=== PATIENT | female | born 1950 | race Caucasian/White ===

== ENCOUNTER → 2017-09-13 15:47 | Outpatient (CLI) | payer MEDICARE, OTHER, SELFPAY ==
--- NOTE | 2017-09-13 15:52 | RAD_ITS ---
STUDY: X-RAY - LEFT SHOULDER REASON FOR EXAM: Female, 67 years old. Painful left shoulder without injury TECHNIQUE: 4 view(s) of the shoulder. COMPARISON: None. FINDINGS: There is mild degenerative arthrosis of the glenohumeral articulation. There is degenerative arthrosis of the acromioclavicular joint without inferior osseous spur formation. Normal acromion. There are 2 ossific densities in the region around the humeral head, largest measuring 1.5 cm. Unsure if this represents joint loose bodies. Normal humeral head and visualized proximal humerus. The soft tissue structures are unremarkable. Normal visualized pulmonary apex. RAD/Shoulder min 2 Views IMPRESSION: Degenerative changes with possible joint loose bodies. Consider CT versus MRI to further evaluate Electronically Signed: Erik Clark DO at 16:07 EST Tel , Service support ,
== END ==
PROVIDERS: Family Provider Family Medicine; PCP Family Medicine; Visit Provider Family Medicine
DX: M25.511 Pain in right shoulder (principal)
CPT/HCPCS: 73030

== ENCOUNTER → 2017-09-21 17:39 | Outpatient (CLI) | payer MEDICARE, OTHER, SELFPAY ==
--- NOTE | 2017-09-21 17:42 | CT_ITS ---
STUDY: CT LEFT SHOULDER REASON FOR EXAM: Female, 67 years old. History of possible intra-articular loose bodies. RADIATION DOSAGE (If Supplied By Facility): CTDIvol = ( 30.82 ) mGy, DLP = ( 448.59 ) mGycm TECHNIQUE: The patient was scanned in a multi detector CT scanner. High resolution transaxial imaging was performed without the administration of intravenous contrast material. Sagittal and coronal images were reconstructed. Individualized dose optimization techniques were used for this CT. COMPARISON: Correlation is made with plain films of the left shoulder of 09/13/2017. FINDINGS: Normal glenohumeral articulation. There is a well-defined calcific density adjacent to the superior posterior aspect of the glenoid fossa which may be due to previous trauma or less likely nonfused epiphyses. Intra-articular loose body is less likely. Normal glenoid rim, neck and visualized scapula. Normal humeral head, neck and tuberosities. Normal coracoid process. Normal visualized lateral clavicle. There is mild osteoarthritis with articular joint space narrowing. There is a Type I morphology (flat undersurface), with a neutral orientation. There are calcifications lateral and superior to the humeral neck consistent with calcific tendinitis. CT/Extremity Upper without Contra IMPRESSION: Calcific tendinitis of the left shoulder. Small well-defined calcification adjacent to the superior glenoid rim as described above. Otherwise no evidence of intra-articular loose bodies. Mild degenerative changes of the acromioclavicular joint. Electronically Signed: Ho Lee MD at 2:05 EST Tel , Service support ,
== END ==
PROVIDERS: Family Provider Family Medicine; PCP Family Medicine; Visit Provider Family Medicine
DX: M25.512 Pain in left shoulder (principal); M24.019 Loose body in unspecified shoulder
CPT/HCPCS: 73200

== ENCOUNTER → 2018-04-13 13:14 | Outpatient (CLI) | payer MEDICARE, OTHER, SELFPAY ==
[2018-04-13 15:50] LABS: Absolute Lymphocyte Count 1.58 X10^3/ul (0.83-4.51); Absolute Neutrophil Count 2.8 X10^3/uL (2.0-7.7); Basophil# 0.03 X10^3/uL; Basophil% 0.6 % (0-1); Eosinophil# 0.22 X10^3/uL; Eosinophils% 4.3 % (0-5); Hematocrit 40.3 % (37-47); Hemoglobin 13.3 g/dl (12.0-15.0); Lymphocyte # 1.58 X10^3/ul (4.0); Lymphocyte % 30.7 % (19-41); Mean Corpuscular Hgb 30.6 pg (27.0-32.0); Mean Corpuscular Volume 92.6 fL (81-99); Mean Platelet Vol. 11.1 fl (6.2-12.0); Monocyte% 9.7 % (0-10); Neutrophil % 54.5 % (47-70); Platelet Count 242 K/mm3 (150-450); RBC Distribution Width CV 12.5 % (11.6-14.6); RBC Distribution Width SD 41.9 fl (35.1-43.9); Red Blood Count 4.35 M/mm3 (4.2-5.4); White Blood Count 5.1 K/mm3 (4.4-11.0)
[2018-04-13 16:00] LABS: POSITIVE COUNT NO; POSITIVE DIFFERENTIAL NO; POSITIVE MORPHOLOGY NO
[2018-04-13 16:22] LABS: Erythrocyte Sedimentation Rate 16 mm/hr (0-30)
[2018-04-13 16:23] LABS: CRP < 2.90 mg/L (0.0-3.0); Rheumatoid Factor < 10.0 IU/mL (<15); T4 Free Direct 0.96 ng/dL (0.76-1.46); Thyroid Stim Hormone (TSH) 0.73 uIU/mL (0.358-3.74)
[2018-04-13 17:21] LABS: Vitamin D,25 Hydroxy 51.6 ng/mL (29.95-100.01)
[2018-04-18 12:58] LABS: ANTINUCLEAR ANTIBODIES DIRECT Negative (Negative)
[2018-04-18 13:46] LABS: CCP IgG Antibodies 12 units (0-19)
== END ==
PROVIDERS: Family Provider Family Medicine; PCP Family Medicine; Visit Provider Family Medicine
DX: M06.4 Inflammatory polyarthropathy (principal); R53.83 Other fatigue
CPT/HCPCS: 36415; 82306; 84439; 84443; 85025; 85652; 86038; 86140; 86200; 86225; 86235; 86431

== ENCOUNTER → 2018-05-25 10:17 | Outpatient (CLI) | payer MEDICARE, OTHER, SELFPAY ==
--- NOTE | 2018-05-25 10:20 | BI_ITS ---
MAMMOGRAPHY - BILATERAL SCREENING 3-D FEDERICO SYNTHESIS REASON FOR EXAM: Female, 68 years old. Bilateral Screening 3-D tomosynthesis PERTINENT HISTORY: Asymptomatic. Left breast biopsy 2007. Family breast carcinoma, paternal aunt age 40-50 and paternal first cousin age 74. TECHNIQUE: 2-D mammograms and 3-D Federico synthesis of the breast (s) were performed. CAD was performed. COMPARISON: 05/25/2017, 05/21/2016 and 03/11/2015. FINDINGS: The breast composition is heterogeneously dense that can obscure small breast masses. Scattered benign appearing calcifications are seen. No dense spiculated dominant masses or suspicious microcalcification cluster are identified. No new architectural distortion, asymmetric density, adenopathy, skin thickening or nipple retraction identified. No change tiny biopsy clip left breast lower inner quadrant. BI/SCREENING MAMM (CAD), BILAT IMPRESSION: No mammographic sign of malignancy. Routine yearly mammograms recommended. ASSESSMENT CATEGORY: BIRADS Category 2: Benign. A letter regarding these results will be sent to the patient by the facility within 30 days. FOLLOW UP RECOMMENDATION: Yearly follow up mammogram recommended. (A) Negative mammographic results should not deter biopsy as any palpable lesion if present should be followed based on clinical grounds and biopsy performed if clinically persistent for 3 months or increasing size. Approximately 10% of breast cancers are not detected by mammography. A normal mammogram should not delay biopsy of a clinically suspicious abnormality. Dense breast tissue may obscure neoplasm. Electronically Signed: Delano Gregorio, at 19:58 EDT Tel , Service support ,
== END ==
PROVIDERS: Family Provider Family Medicine; PCP Family Medicine; Visit Provider Obstetrics & Gynecology
DX: Z12.31 Encounter for screening mammogram for malignant neoplasm of breast (principal)
CPT/HCPCS: 77063; 77067

== ENCOUNTER → 2018-06-09 07:46 | Outpatient (CLI) | payer MEDICARE, OTHER, SELFPAY ==
--- NOTE | 2018-06-10 12:15 | PFT ---
INTRODUCTION: The patient is a 68-year-old female that presents for pulmonary function testing secondary to a diagnosis of shortness of breath. Respiratory therapy reports good patient effort. Bronchodilators were used during testing. INTERPRETATION: Forced expiration spirometry demonstrates the presence of a reversible mild large airways obstructive ventilatory defect. The patient had a significant mid flow bronchodilator response. Spirograms are of good quality and do not plateau indicating slow emptying of the lungs. Body plethysmography was performed and reveals lung volumes to be within normal limits. Diffusing capacity by single breath CO is within normal limits at 87% of predicted. IMPRESSION: These pulmonary function studies demonstrate the presence of a reversible mild large airways obstructive ventilatory defect with a significant mid flow bronchodilator response. This pattern could be suggestive of underlying asthma, in the appropriate clinical context.
== END ==
PROVIDERS: Family Provider Family Medicine; PCP Family Medicine; Referring Provider Internal Medicine Critical Care Medicine; Visit Provider Internal Medicine Critical Care Medicine
DX: R06.02 Shortness of breath (principal)
CPT/HCPCS: 94060; 94726; 94729

== ENCOUNTER → 2018-06-16 08:30 | Outpatient (CLI) | payer MEDICARE, OTHER, SELFPAY ==
[2018-06-16 08:40] VITALS: PULSE 73; PULSE 77; PULSE 83; PULSE 84; PULSE 86; PULSE 87; PULSE 91; O2SAT 94; O2SAT 95; O2SAT 96; O2SAT 98; O2SAT 99
--- NOTE | 2018-06-16 15:02 | PCM.PSN.6M ---
PSN 6 Minute Walk Test - 6 Minute Walk Test 6 Minute Walk Test: 6 Minute Walk Test PSN:6-Minute Walk Test Start: 06/16/18 08:55 Freq: Status: Active Protocol: [id number].6MINW Document 06/16/18 08:40 HARRIET (Rec: 06/16/18 09:00 [facility] [place] [facility] [place] [id number]) 6 Minute Walk Test Date Performed 06/16/18 Time Performed 08:40 Height 5 ft 1 in Weight: 73.936 kg Weight in Pounds 163.[address]: Peter Eddy Assistive device used: None Pre-test Oxygen Delivery Method Room Air Pulse Ox (%) 99 Pulse Rate (60-100 beats/min) 73 Dyspnea Shaina Scale (0-10) 0 Exertion Shaina Scale (6-20) 6 Number of Rests Taken 0 1st minute Oxygen Delivery Method Room Air Pulse Ox (%) 98 Pulse Rate (60-100 beats/min) 86 Number of Rests Taken 0 2nd minute Oxygen Delivery Method Room Air Pulse Ox (%) 96 Pulse Rate (60-100 beats/min) 84 Number of Rests Taken 0 3rd minute Oxygen Delivery Method Room Air Pulse Ox (%) 98 Pulse Rate (60-100 beats/min) 83 Number of Rests Taken 0 4th minute Oxygen Delivery Method Room Air Pulse Ox (%) 96 Pulse Rate (60-100 beats/min) 87 Number of Rests Taken 0 5th minute Oxygen Delivery Method Room Air Pulse Ox (%) 95 Pulse Rate (60-100 beats/min) 87 Number of Rests Taken 0 6th minute Oxygen Delivery Method Room Air Pulse Ox (%) 94 Pulse Rate (60-100 beats/min) 91 Number of Rests Taken 0 Post-test Oxygen Delivery Method Room Air Pulse Ox (%) 99 Pulse Rate (60-100 beats/min) 77 Dyspnea Shaina Scale (0-10) 2 Exertion Shaina Scale (6-20) 12 Number of Rests Taken 0 Full Laps Walked 14 Partial Lap, Number of Tiles Walked 17 Total Distance Walked (ft) 843 - Interpretation Interpretation: The patient was able to ambulate 843 feet over the course of 6 minutes on room air with no assistive devices or breaks. No significant desaturation or tachycardia was noted. These findings are consistent with a musculoskeletal limitation exercise tolerance. - Recommendations Recommendations: No supplemental oxygen is indicated at this time.
== END ==
PROVIDERS: Family Provider Family Medicine; PCP Family Medicine; Referring Provider Internal Medicine Critical Care Medicine; Visit Provider Internal Medicine Critical Care Medicine
DX: R06.02 Shortness of breath (principal)
CPT/HCPCS: 94618

== ENCOUNTER → 2018-07-13 10:37 | Outpatient (CLI) | payer MEDICARE, OTHER, SELFPAY ==
[2018-07-13 09:50] VITALS: BMI 31.4
[2018-07-13 11:02] LABS: Absolute Lymphocyte Count 1.52 X10^3/ul (0.83-4.51); Absolute Neutrophil Count 3.4 X10^3/uL (2.0-7.7); Basophil# 0.03 X10^3/uL; Basophil% 0.5 % (0-1); Eosinophil# 0.24 X10^3/uL; Eosinophils% 4.2 % (0-5); Hematocrit 40.3 % (37-47); Hemoglobin 13.4 g/dl (12.0-15.0); Lymphocyte # 1.52 X10^3/ul (4.0); Lymphocyte % 26.6 % (19-41); Mean Corp Hgb Conc 33.3 g/gl (32-36); Mean Corpuscular Hgb 30.6 pg (27.0-32.0); Mean Platelet Vol. 10.2 fl (6.2-12.0); Monocyte# 0.56 X10^3/uL; Monocyte% 9.8 % (0-10); Neutrophil # 3.35 X10^3/uL (2.7-7.7); Neutrophil % 58.7 % (47-70); Platelet Count 250 K/mm3 (150-450); RBC Distribution Width CV 13.9 % (11.6-14.6); RBC Distribution Width SD 46.3 fl (35.1-43.9); Red Blood Count 4.38 M/mm3 (4.2-5.4); White Blood Count 5.7 K/mm3 (4.4-11.0)
[2018-07-13 11:05] LABS: POSITIVE COUNT NO; POSITIVE DIFFERENTIAL NO; POSITIVE MORPHOLOGY NO
[2018-07-15 16:08] LABS: Alternaria alternata <0.10 kU/L (Class 0); Bermuda Grass <0.10 kU/L (Class 0); Bluegrass, Kentucky <0.10 kU/L (Class 0); Cat Hair/Dander, Standard <0.10 kU/L (Class 0); D farinae Mite <0.10 kU/L (Class 0); D pteronyssinus <0.10 kU/L (Class 0); Dog Epithelia <0.10 kU/L (Class 0); Elm, American White <0.10 kU/L (Class 0); Oak, White <0.10 kU/L (Class 0); Ragweed, Short/Common <0.10 kU/L (Class 0)
[2018-07-16 09:23] LABS: Mouse Urine <0.10 kU/L (Class 0)
[2018-07-16 20:06] LABS: Aspirgillus flavus Negative (Neg:<1:1); Aspirgillus fumigatus Negative (Neg:<1:1); Aspirgillus niger Negative (Neg:<1:1)
[2018-07-17 08:33] LABS: Immunoglobulin E 32 IU/mL (0-100)
--- OUTSIDE RECORDS SUMMARY | 2018-09-07 19:09 | XMS RPT_ITS ---
:1950 Author Organization OHIP Support Name Relationship Address Phone [employer] Unavailable [address] [facility] + [place] [address] MCILVAINE, EARLENE Unavailable [address] + [place] [address] CHARI, SHOHBA Unavailable [address] + [place] [address] [employer] Unavailable 7 [facility] + [place] [address] MCILVAINE, EARLENE Unavailable Unavailable + CHARI, SHOBHA Unavailable Unavailable + [employer] Unavailable 7 [facility] + [place] [address] MCILVAINE, EARLENE Unavailable . + [place] [address] CHARI, SHOBHA Unavailable . + [place] [address] [employer] Unavailable 7 [facility] + [place] [address] MCILVAINE, EARLENE Unavailable Unavailable + [place] [address] CHARI, SHOBHA Unavailable Unavailable + [place] [address] [employer] Unavailable 7 [facility] + [place] [address] MCILVAINE, EARLENE Unavailable Unavailable + CHARI, SHOBHA Unavailable Unavailable + [employer] Unavailable 7 [facility] + [place] [address] MCILVAINE, EARLENE Unavailable Unavailable + CHARI, SHOBHA Unavailable Unavailable + [employer] Unavailable 7 [facility] + [place] [address] MCILVAINE, EARLENE Unavailable Unavailable + [place] [address] CHARI, SHOBHA Unavailable Unavailable + [place] [address] [employer] Unavailable 7 [facility] + [facility] [place] [address] CHARI, SHOBHA Unavailable . + [place] [address] [employer] Unavailable 7 [facility] + [place] [address] CHARI, SHOBHA Unavailable Unavailable + [employer] Unavailable 7 [facility] + [place] [address] CHARI, SHOBHA Unavailable . + [place] [address] [employer] Unavailable 7 [facility] + [facility] [place] [address] MCILVAINE, EARLENE Unavailable Unavailable + CHARI, SHOBHA Unavailable Unavailable + [employer] Unavailable Unavailable + [place] [address] CHARI, SHOBHA Unavailable . + [place] [address] MAIMVAINE, EARLENE Unavailable Unavailable + MAIMVAINE, EARLENE Unavailable Unavailable + MAIMVAINE, EARLENE Unavailable Unavailable + MAIMVAINE, EARLENE Unavailable Unavailable + MAIMVAINE, EARLENE Unavailable Unavailable + MCILVAINE, EARLENE Unavailable [address] + [place] [address] R Unavailable Unavailable Unavailable MCILVAINE, EARLENE Unavailable [address] + [place] [address] R Unavailable Unavailable Unavailable MCILVAINE, EARLENE Unavailable [address] + [place] [address] R Unavailable Unavailable Unavailable Care Team Providers Name Role Phone RICO PUGA (OPAL MINER) Attending Unavailable MARIANNA NEWELL Referring Unavailable RICO PUGA (OPAL MINER) Attending Unavailable MARIANNA NEWELL Referring Unavailable Yossi, Hugo Attending Unavailable Yossi, Hugo Primary Care Unavailable Yossi, Hugo Attending Unavailable Yossi, Hugo Referring Unavailable Yossi, Hugo Primary Care Unavailable Samantha Chinchilla Attending Unavailable Yossi, Hugo Referring Unavailable Yossi, Hugo Primary Care Unavailable Keke Kaiser Attending Unavailable Peter Eddy, D.O. Attending Unavailable Yossi, Hugo Referring Unavailable Yossi, Hugo Attending Unavailable Yossi, Hugo Primary Care Unavailable Aleksandra Lopez Attending Unavailable Yossi, Hugo Referring Unavailable Yossi, Hugo Primary Care Unavailable Aleksandra Lopez Attending Unavailable Yossi, Hugo Primary Care Unavailable Peter Eddy, D.O. Attending Unavailable Yossi, Hugo Referring Unavailable Peter Brown, D.O. Attending Unavailable Peter Brown, D.O. Referring Unavailable Yossi, Hugo Primary Care Unavailable Peter Eddy, D.O. Attending Unavailable Peter Eddy, D.O. Referring Unavailable Yossi, Hugo Primary Care Unavailable Peter Eddy, D.O. Attending Unavailable Peter Brown, D.O. Referring Unavailable Jose Angel Heart Attending Unavailable Peter Brown, D.O. Referring Unavailable Macy Eller Attending Unavailable Yossi, Hugo Referring Unavailable Macy Eller Attending Unavailable Rafita Macy Referring Unavailable Yossi, Hugo Primary Care Unavailable SUZANNE MCCLURE, DERIK Attending Unavailable SUZANNE MCCLURE, DERIK Attending Unavailable SUZANNE MCCLURE, DERIK Attending Unavailable SUZANNE MCCLURE, DERIK Attending Unavailable SUZANNE MCCLURE, DERIK Attending Unavailable PROBLEMS PROBLEMS DATE TYPE CONDITION / CODE ATTENDING STATUS SOURCE 07/13/2018 Unknown J45.909 - Unspecified Eller, Active Debbie asthma, uncomplicated [facility] / J45.909(ICD-10) Hospital Repository 07/13/2018 Unknown E66.9 - Obesity, Eller, Active Debbie unspecified / [facility] E66.9(ICD-10) Hospital Repository 07/13/2018 Unknown R05 - Cough / Eller, Active [place] R05(ICD-10) [facility] Repository 07/18/2018 Unknown R06.02 - Shortness of Peter Eddy, Active [facility] breath / 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 / Community M06.4(ICD-10) Hospital Repository 10/07/2017 Unknown M75.32 - Calcific ChicEfrem gore tendinitis of left Samantha [facility] shoulder / Hospital M75.32(ICD-10) Repository 09/21/2017 Unknown M25.512 - Pain in Hugo Sy Active Debbie left shoulder / Community M25.512(ICD-10) Hospital Repository 09/21/2017 Unknown M24.019 - Loose body Hugo Sy Active Debbie in unspecified Community shoulder / Hospital M24.019(ICD-10) Repository PROCEDURES PROCEDURES No Procedure Records FoundRESULTS RESULTS PROGRESS Observed: 07/28/2018 Status: COMPLETED Source: [place] 3:05 PM [facility] REPOSITORY HNO ID: [id number] Author: Rico Madden) Edd Service: (none) Author Type: Nurse Practitioner Type: Progress Notes Filed: 07/28/2018 5:13 PM Note Text: Reason for Today's [facility] Clinic Visit at [place]: ANASTASIYA 05/05/18 Impression: G47.33 CONOR (obstructive sleep apnea) AHI 40 (primary encounter diagnosis) I10 Essential hypertension, benign ? 68 yo female on PAP therapy and current CPAP greater then 5 years and broken beyond repair- humidity and pressures are broken. Need for new supplies, but needs to be set up with a new DME as [facility] is going out of business. Plan: - Will start Auto CPAP 5-10 cmH2O with a Nasal mask. - I will have a prescription sent to a DME (durable medical equipment) company - [employer] who will be calling you in the next 1- 2 weeks or so. Please call them directly or us if you do not hear from them in this time frame. - You should be eligible for new supplies approximately every 3-6 months, depending on your insurance coverage. - If your mask doesn't fit well, call the DME company before 30 days are up to get a new mask without an additional charge. - Insurance requires regular usage and periodic office follow ups for PAP therapy, to continue to cover supplies. ? CMS REQUIREMENTS: - Your insurance requires a [id number] follow up visit within a 31-90 day period after starting CPAP. - Your insurance requires compliance with CPAP, which is at least 4 hours per night for 70% of the time. This must be done over a 30 day period and must occur within the initial 31-90 day period after starting CPAP. - Your insurance also requires at least yearly follow ups to continue to pay for CPAP supplies. ? ? Follow up in 3 months ? Rico Puga, CHEMICAL ANALYST.OPAL MINER SLEEP APNEA Sleep apnea type : CONOR, Most Recent Apnea-Hypopnea Index (AHI): 40 Treatment : PAP therapy DME: [employer] PAP History: Uses AutoPAP for 6 hours per night, 7 nights per week. Current PAP settin-10 cm H2O. Difficulties with AutoPAP: None Objective PAP compliance data: 06/28/18 to 07/27/18 Compliance download: 97% >=4 hours Average use: 6 hours 31 minutes 90/95th percentile pressure: 9.8 Leaks 9.7, residual AHI 1.2 Mask type: nasal pillow interface Mask issues: skin irritation Uses chin strap: No Uses ramp function: Yes Uses humidity: Yes There is a perceived benefit by the patient ALLERGIES Allergen Reactions - Benedryl [Diphenhyd* GI Upset Patient felt hazy for several days after Colonoscopy for a while due to benedryl - Penicillins - Sulfa (Sulfonamide * PAST MEDICAL HISTORY Diagnosis Date - Asthma Dr. 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 - CONOR (obstructive sleep apnea) 12/27/2012 [facility] - Snoring PAST SURGICAL HISTORY Procedure Laterality Date - COLONOSCOP W/ OR W/O [facility] SPEC 08/07/09 - COLONOSCOP W/ OR W/O [facility] SPEC 11/05/14 Colonoscopy - PAST SURGICAL HISTORY OF back surgeries x 2 - PAST SURGICAL HISTORY OF Jun 2010 carpal tunnel release - REMOVAL OF TONSILS,<12 Y/O Tonsillectomy ACTIVE PROBLEM LIST Routine Gynecological Examination Ddd (Degenerative Disc Disease) Fibroid Uterus Asthma Penicillin Allergy Acne Essential Hypertension, Benign Mthfr Mutation (Hcc) Impaired Fasting Glucose CONOR (obstructive sleep apnea) AHI 40 Thoracic Radiculopathy Due to Intervertebral Disc Disorder Radiculopathy, Thoracic Region ? Diagnostic Conclusions: Obstructive Sleep Apnea Other conditions targeted directly or indirectly by intervention: HTN, asthma, DDD ? Self-reports: Doing well on PAP therapy with nightly use and perceived benefit. Presents after starting new autoPAP therapy. Actions Taken Reviewed reasons for treating sleep apnea in group format Individual review of patient's CONOR status and treatment regimen. Reviewed compliance report Provided education materials regarding CPAP ? Objective Data Compliance: Machine-downloaded PAP compliance data: see above Healthy appearing, good comprehension, normal gait, speech logical and goal directed Pleasant demeanor and attire appropriate to season ? Vital signs: BP 115/62 (BP Site: Left Arm, BP Position: Sitting, BP Cuff Size: Large Adult) Pulse 70 Resp 16 ? Plan: - Continue Auto CPAP at 5-15 cmH2O. - Remember to clean your mask and equipment regularly, as directed. - You should be eligible for new supplies approximately every 3-6 months, depending on your insurance coverage. Contact your Durable Medical Equipment (DME) company for new supplies as needed. Follow up in 1 year(s). This visit occurred of a group-based Shared Medical Activity, which included brief education and facilitated group interaction principally to enhance the understanding of and compliance with PAP therapy. This education emphasizes the benefits to daily functioning (Reduced Sleepiness, Improved Energy, Reduced Fatigue, and Reduced Irritability) that may accrue to many patients, but especially emphasizes the importance of adverse cardiovascular and metabolic outcomes (Heart attacks, strokes, hypertension, and worsening diabetes) that compliance to PAP therapy is intended to forestall or delay. This activity is directed at problems pertinent to CPAP mask therapy, and includes DME providers who were also available for immediate contact and intervention. Rico COHENOV Observed: 07/28/2018 Status: COMPLETED Source: [place] 3:00 PM [facility] REPOSITORY Office Visit (NEMOWS) MARLENYSHANTE ([id number]) 1950 Gila CASAREZ Date Time Provider Department 07/28/18 3:00 PM RICO PUGA) ANKUR During your visit today, we recorded the following information about you: Pulse Respiration Blood pressure 70/minute 16/minute 115/62 Rico Puga APRN.CNP 07/28/2018 5:13 PM Signed Reason for Today's [facility] Clinic Visit at [place]: ANASTASIYA 05/05/18 Impression: G47.33 CONOR (obstructive sleep apnea) AHI 40 (primary encounter diagnosis) I10 Essential hypertension, benign ? 68 yo female on PAP therapy and current CPAP greater then 5 years and broken beyond repair- humidity and pressures are broken. Need for new supplies, but needs to be set up with a new DME as [employer] is going out of business. Plan: - Will start Auto CPAP 5-10 cmH2O with a Nasal mask. - I will have a prescription sent to a DME ([employer] medical equipment) company - [employer] who will be calling you in the next 1-2 weeks or so. Please call them directly or us if you do not hear from them in this time frame. - You should be eligible for new supplies approximately every 3-6 months, depending on your insurance coverage. - If your mask doesn't fit well, call the DME company before 30 days are up to get a new mask without an additional charge. - Insurance requires regular usage and periodic office follow ups for PAP therapy, to continue to cover supplies. ? [facility] REQUIREMENTS: - Your insurance requires a [id number] follow up visit within a 31-90 day period after starting CPAP. - Your insurance requires compliance with CPAP, which is at least 4 hours per night for 70% of the time. This must be done over a 30 day period and must occur within the initial 31-90 day period after starting CPAP. - Your insurance also requires at least yearly follow ups to continue to pay for CPAP supplies. ? ? Follow up in 3 months ? Rico Puga APRN.CNP SLEEP APNEA Sleep apnea type : CONOR, Most Recent Apnea-Hypopnea Index (AHI): 40 Treatment : PAP therapy DME: [employer] PAP History: Uses AutoPAP for 6 hours per night, 7 nights per week. Current PAP settin-10 cm H2O. Difficulties with AutoPAP: None Objective PAP compliance data: 06/28/18 to 07/27/18 Compliance download: 97% >=4 hours Average use: 6 hours 31 minutes 90/95th percentile pressure: 9.8 Leaks 9.7, residual AHI 1.2 Mask type: nasal pillow interface Mask issues: skin irritation Uses chin strap: No Uses ramp function: Yes Uses humidity: Yes There is a perceived benefit by the patient ALLERGIES Allergen Reactions - Benedryl [Diphenhyd* GI Upset Patient felt hazy for several days after Colonoscopy for a while due to benedryl - Penicillins - Sulfa (Sulfonamide * PAST MEDICAL HISTORY Diagnosis Date - Asthma Dr. 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 - CONOR (obstructive sleep apnea) 12/27/2012 [facility] - [facility] PAST SURGICAL HISTORY Procedure Laterality Date - COLONOSCOP W/ OR W/O [facility] SPEC 08/07/09 - COLONOSCOP W/ OR W/O [facility] SPEC 11/05/14 Colonoscopy - PAST SURGICAL HISTORY OF back surgeries x 2 - PAST SURGICAL HISTORY OF Jun 2010 carpal tunnel release - REMOVAL OF TONSILS,<12 Y/O Tonsillectomy ACTIVE PROBLEM LIST Routine Gynecological Examination Ddd (Degenerative Disc Disease) Fibroid Uterus Asthma Penicillin Allergy Acne Essential Hypertension, Benign Mthfr Mutation (Hcc) Impaired Fasting Glucose CONOR (obstructive sleep apnea) AHI 40 Thoracic Radiculopathy Due to Intervertebral Disc Disorder Radiculopathy, Thoracic Region ? Diagnostic Conclusions: Obstructive Sleep Apnea Other conditions targeted directly or indirectly by intervention: HTN, asthma, DDD ? Self-reports: Doing well on PAP therapy with nightly use and perceived benefit. Presents after starting new autoPAP therapy. Actions Taken Reviewed reasons for treating sleep apnea in group format Individual review of patient's CONOR status and treatment regimen. Reviewed compliance report Provided education materials regarding CPAP ? Objective Data Compliance: Machine-downloaded PAP compliance data: see above Healthy appearing, good comprehension, normal gait, speech logical and goal directed Pleasant demeanor and attire appropriate to season ? Vital signs: BP 115/62 (BP Site: Left Arm, BP Position: Sitting, BP Cuff Size: Large Adult) Pulse 70 Resp 16 ? Plan: - Continue Auto CPAP at 5-15 cmH2O. - Remember to clean your mask and equipment regularly, as directed. - You should be eligible for new supplies approximately every 3-6 months, depending on your insurance coverage. Contact your Durable Medical Equipment (DME) company for new supplies as needed. Follow up in 1 year(s). This visit occurred of a group-based Shared Medical Activity, which included brief education and facilitated group interaction principally to enhance the understanding of and compliance with PAP therapy. This education emphasizes the benefits to daily functioning (Reduced Sleepiness, Improved Energy, Reduced Fatigue, and Reduced Irritability) that may accrue to many patients, but especially emphasizes the importance of adverse cardiovascular and metabolic outcomes (Heart attacks, strokes, hypertension, and worsening diabetes) that compliance to PAP therapy is intended to forestall or delay. This activity is directed at problems pertinent to CPAP mask therapy, and includes DME providers who were also available for immediate contact and intervention. Rico Puga CNP Referring Provider: MARIANNA NEWELL [[id number]] Allergies As of Date: 07/28/2018 Noted Allergy Reaction BENEDRYL (DIPHENHYDRAMINE) 11/07/2014 8 - GI Upset Comments: Patient felt hazy for several days after Colonoscopy for a while due to benedryl PENICILLINS 06/04/2009 SULFA (SULFONAMIDE ANTIBIOTICS) 06/04/2009 Date Reviewed: 07/28/2018 Reviewed by: Rico (Soumya) Edd - Fully Assessed Reason for Visit: Sleep Apnea Clinic [Other] Primary Visit Diagnosis:CONOR (obstructive sleep apnea) [G47.33] Prescriptions as of 07/28/2018 Sig: AZELASTINE-FLUTICASONE 137 MC* Use 1 Dows in each nostril t* BIOTIN 2,500 MCG CAPSULE Take by mouth. BIOTIN 5,000 MCG-SILICON DIOX* Take by mouth once daily. CALCIUM 500 ORAL Take 1 tablet by mouth. VITAMIN D-3 ORAL Take by mouth. COENZYME Q10 200 MG CAPSULE Take by mouth once daily. COMPOUNDED PRESCRIPTION Pain- BG CPAP CPAP 9 cmH2O, suitable mask, * CPAP Mask (per patient preference)* CPAP 1 Device by MISCELLANEOUS rou* CYANOCOBALAMIN (VIT B-12) 1,0* Take 1 tablet by mouth once d* RADHIKA ALLERGY ORAL Take 1 tablet by mouth as nee* FOLIC ACID 1 MG TABLET Take 2 tablets by mouth twice* LACTOBACILLUS ACIDOPHILUS CAP* Take 1-2 capsules by mouth on* MAGNESIUM 250 MG TABLET Take 250 mg by mouth once aristeo* OMEGA-3 FATTY ACIDS-FISH OIL * Take 1 capsule by mouth twice* OXYCODONE 5 MG CAPSULE Take 1 capsule by mouth every* PREGABALIN 75 MG CAPSULE Take 75 mg by mouth twice aristeo* RESVERATROL 100 MG CAPSULE Take by mouth. TIZANIDINE 4 MG TABLET Take 0.5-1 tablets by mouth e* TURMERIC (BULK) 95 % POWDER VALACYCLOVIR 500 MG TABLET Take 500 mg by mouth twice da* VITAMIN B COMPLEX TABLET Take 1 tablet by mouth once d* More... Problem List As Of Date 07/28/2018 Noted Resolved Routine Gynecological Examination [Z01.419] INVALID FOR* Class: Chronic More... DDD (degenerative disc disease) [PMA1616] INVALID FOR* More... Fibroid Uterus [D25.9] INVALID FOR* Asthma [J45.909] INVALID FOR* More... Penicillin Allergy [Z88.0] INVALID FOR* Acne [L70.9] INVALID FOR* More... Essential Hypertension, Benign [I10] INVALID FOR* MTHFR Mutation [E72.12] INVALID FOR* More... Impaired fasting glucose [R73.01] INVALID FOR* CONOR (obstructive sleep apnea) AHI 40 [G47.33] INVALID FOR* More... Obesity [E66.9] INVALID FOR*03/21/2014 Depression [F32.9] INVALID FOR*09/26/2013 Excessive sleepiness [G47.10] INVALID FOR*09/26/2013 Thoracic radiculopathy due to intervertebral di*INVALID FOR* Thoracic or lumbosacral neuritis or radiculitis*INVALID FOR*03/30/2017 Radiculopathy, thoracic region [M54.14] INVALID FOR* Disposition: Return in about 1 year (around 07/28/2019). Follow-up and Disposition History Recorded Encounter Status:Closed by RICO PUGA on 07/28/18 PULMONARY VISIT REPORT Observed: 07/28/2018 Status: F Source: [place] 7:37 AM [facility] REPOSITORY [facility] [place] [address] [place] [address] OFFICE VISIT Date of Service: 07/28/18 MR#: [id number] Acct: [id number] Name: SHANTE MILLARD Rep #: [id number] : 1950 Provider: Peter Eddy D.O. Age/Sex: 68/F Location: [email or web address] Status: Signed Assessment AND Plan 1. Mild intermittent asthma without complication J45.20 Plan The patient is rather asymptomatic at this time and is responding favorably to the use of an albuterol metered-dose inhaler. Given her infrequent use of albuterol and limited symptoms, there is no indication for an escalation in her inhaler regimen. She has been advised to continue the use of albuterol as needed and to contact this office if her reliance on his short acting beta agonist exceeds 3 times per week. 2. 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 Plan Detail Other Medications New: Follow Up 5 Months (DMB) HPI HPI Comments Details: The patient is a 68-year-old female who presents to the clinic today for a routine scheduled follow-up office visit. If you recall, the patient reports having previously been diagnosed with cough variant asthma and what sounds to be like exercise-induced bronchospasm. She was previously followed by Dr. Hernandez (bank vault attendant). She states that she was previously prescribed Symbicort and as needed albuterol multiple years ago when she was following with the aforementioned provider. The patient then slowly weaned herself off of all inhalers and has been without them for approximately 3 years. She is a lifelong non-smoker, but does have significant secondhand smoke exposure. She does not keep any pets in her home environment. 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 Pulmonary function testing was completed in May 2018 revealed evidence of a reversible mild large airways obstructive ventilatory defect with a significant mid flow bronchodilator response. A 6-minute walk test was completed in June 2018 and revealed no significant exertional oxygen desaturation. Today, the patient only reports the presence of a mild nonproductive cough, postnasal drip and occasional shortness of breath. She does have intermittent episodes of chest tightness and wheezing, which responds to the use of albuterol. However, she has not had to utilize her rescue inhaler with any form of regularity. She denies fevers, chills or night sweats. Her weight has remained stable. RAST, IgE and Aspergillus antibodies were all negative. 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 Required: No Accompanied by: Self Is patient in pain?: Yes Allergies Penicillins [PCN] Allergy (Verified 07/28/18 07:10) Rash Sulfa (Sulfonamide Antibiotics) Allergy (Verified 07/28/18 07:10) Hives Medications B-complex with vitamin C capsule 1 cap PO QDAY 10/07/17 [History Confirmed 07/28/18] Bifidobacterium infantis 1.5 billion cell capsule 4 mg PO QDAY 10/07/17 [History Confirmed 07/28/18] cholecalciferol (vitamin D3) 5,000 unit capsule 5,000 unit PO ONCE 10/07/17 [History Confirmed 07/28/18] mecobalamin (vitamin B12) 1,000 mcg disintegrating tablet,sublingual 1,000 mcg SUBLINGUAL QDAY 10/07/17 [History Confirmed 07/28/18] omega-3 fatty acids 1,000 mg capsule 1,000 mg PO QDAY 10/07/17 [History Confirmed 07/28/18] turmeric root extract 500 mg capsule 500 mg PO DAILY 04/26/18 [History Confirmed 07/28/18] biotin 5,000 mcg disintegrating tablet 5,000 mcg PO DAILY tab 05/25/18 [History Confirmed 07/28/18] coenzyme M67-hzymbgh E 100 mg-100 unit capsule 2 cap PO QDAY cap 05/25/18 [History Confirmed 07/28/18] folic acid 1 mg tablet 2 mg PO BID tab 05/25/18 [History Confirmed 07/28/18] pregabalin 75 mg capsule 75 mg PO BID 05/25/18 [History Confirmed 07/28/18] valacyclovir 500 mg tablet 500 mg PO DAILY 05/25/18 [History Confirmed 07/28/18] doxycycline hyclate 20 mg tablet 100 mg PO BID 07/13/18 [History Confirmed 07/28/18] albuterol sulfate HFA 90 mcg/actuation aerosol inhaler 2 puff INHALATION Q6H PRN 07/28/18 [History Confirmed 07/28/18] doxycycline hyclate 20 mg tablet 20 mg PO BID tab 07/28/18 [History Confirmed 07/28/18] PFSH Medical History Obesity (Chronic) Lumbar disc disease (Chronic) Spinal stenosis (Chronic) Abnormal Pap smear of cervix (Acute) Sleep apnea (Chronic) Back pain (Chronic) Depression (Acute) Asthma (Chronic) Tubal ligation status (Resolved) MTHFR mutation (Chronic) Thoracic back pain (Chronic) History of hysterectomy (Inactive) Surgical History pelvic resconstruction by dr mcdowell (Resolved) History of back surgery (Resolved) History of LAVH (Resolved) caudal injection (Resolved) S/P carpal tunnel release (Inactive) S/P tonsillectomy (Inactive) Status post right knee replacement (Inactive) fibroid tumor removed (Inactive) s/p low back surgery (Inactive) Family History Father Throat cancer Diabetes CVA (cerebral vascular accident) Hypertension Mother Cancer Heart disease Hypertension Rheumatoid arthritis Social History Smoking Status: Never smoker alcohol intake: never substance use type: does not use caffeine: No what type of physical activity do you participate in: walking frequency: 3-4 times per week seatbelt use: always do you feel safe at home: Yes 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 [employer] Review of Systems Const CONSTITUTIONAL: Positive fatigue; negative anorexia, body ache, chills, daytime sleepiness, fever(s), night sweats, oral thrush, stops breathing during sleep, weight loss, sleeping in chair, weight loss, weight gain, frequent colds, seasonal allergies, other, headache(s) or orthopnea [facility] Ear Nose Throat Mouth: Positive hearing normal; negative hard of hearing, hoarseness, dry mouth in morning, change in vision, itchy eyes, eye pain, swallowing Difficulty, ear pain, nose bleed, headache(s), mouth pain, nasal congestion, nasal discharge, post nasal drip, sinus pain, sinus pressure, sore throat or other Cardio Cardiovascular: Negative chest pain, chest pain at rest, chest pain with activity, irregular heart rhythm, edema, shortness of breath when lying down, palpitations, murmur or other Resp Respiratory: Positive as per HPI and cough cough: Positive non-productive; negative shortness of breath, pain with cough, wheezing, chest congestion, chest tightness, pain on inspiration, inhalers, increase use of rescue inhalers, snoring, apnea or other Gastro Gastrointestional: Negative bloody stools, change in appetite, difficulty swallowing, reflux, hematemesis, melena stool, loose stool, constipation or other Genitourinary: Negative blood in urine, nocturia, pain with urination or other Musc Musculoskeletal: Negative body pain, back pain, neck pain or other Skin/Breast Skin/Breast: Negative dry skin, itching, rash, unusual bruising, breast lump or other Neuro Neurological: Negative restless legs, confusion, weakness or other Psych Psychocological: Negative abnormal sleep pattern, anxiety, thoughts of hurting self/others, hopelessness or other Lymph Lymphatic: Negative easy bleeding, easy bruising, swollen lymph nodes or other Exam Const Constitutional: Positive conversant, cooperative, in no acute respiratory distress, well developed, well nourished and good hygiene Head Head: Positive normocephalic and atraumatic; negative cyanosis of lips/distal nose Eyes Eye: Positive clear conjunctiva; negative nystagmus or scleral abnormality Ears Ear: Positive hearing normal and external ears normal; negative hard of hearing Nose Nose: Positive external nose normal; negative epistaxis Mouth Mouth: Positive oral mucosae normal and posterior oropharynx is adequate; negative no lesions or post nasal drip Mallampati Score: II: Mallampati Score Neck Neck: Positive normal visual inspection and trachea midline; negative lymphadenopathy Chest Wall Chest: Positive symmetric chest movement Normal AP diameter. Resp lung sounds: Positive clear to auscultation and good air exchange; negative wheezes, rhonchi or rales Cardio Cardiac: Positive regular rate, regular rhythm, S1 normal and S2 normal; negative rub, gallop or murmur GI GI: Positive normal bowel sounds Soft without distention Genitourinary: Positive deferred Musc Musculoskeletal: Positive steady gait Skin Pulmonary Skin Exam: Positive intact; negative lesion, ulcers, dermal atrophy or rash Pulses Pulse: Yes Pedal pulses present: Extremities Extremities: No clubbing, No cyanosis, No edema Neuro Neurologic: Yes conversant, Yes no focal neuro deficits, Yes cooperative Lymph Lymphatic: No lymphadenopathy Psych Appearance: Positive grossly normal Mental Status: Positive mental status grossly normal Mood: Positive congruent mood Affect: Positive normal affect Coding Level of Care Code Off vis,est,level 3 Diagnoses Mild intermittent asthma without complication J45.20 Asthma complication type: uncomplicated Asthma persistence: intermittent Asthma severity: mild 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 Status: Signed Assessment AND Plan 1. Cough R05 Plan Cough is more frequent in the spring and fall. Performing Niox today to determine if the patient has any inflammatory properties at this time. Orders Orders: 2. Mild intermittent asthma without complication J45.20 Plan At this time it appears as though she has mild intermittent asthma, we will do some blood work to identify any possible triggers. The patient states that in the spring and fall she has worsening symptoms we will monitor for the need to step up therapy during that time. Follow-up with Dr. Eddy in 6 weeks, at which time they can discuss test results and continue to develop a plan. Plan Detail Other Orders Orders: Other Medications New: Follow Up 6 Weeks (DMB) HPI 6 wk FU: Chief Complaint: Dyspnea on exertion HPI Comments Details: This patient presents the office today to follow-up after recently completing some testing. She is ambulatory and currently on room air. She has not been seen by the ED or urgent care for respiratory illnesses since last office visit. She has not required treatment with antibiotics of prednisone fight with the problems. At the last office visit she was prescribed a Ventolin rescue inhaler, which she really used approximately 4 times since that visit. She did report that it did provide her with relief of her shortness of breath when she used it. She only experiences shortness of breath on exertion. Recently while raking leaves she experienced shortness of breath and utilized to the rescue inhaler. It did provide her with relief. She denies any wheezing, chest tightness, chest pain or palpitations. She also denies any cough or sputum production. She does report that she gets bronchitis approximately once yearly. She denies any fever, chills or body aches. She did receive her annual flu vaccination. She does report seasonal allergies, noticing triggers are more consistent in the spring and fall. Pulmonary stress test completed on June 16, 2018 shows that the patient was able to ambulate 843 feet over the course of 6 minutes, she did not become hypoxic and does not require supplemental oxygen. Pulmonary function test completed on June 09, 2018 and interpreted as showing a reversible mild large airway obstructive defect with a significant mid to low bronchial dilator response. This pattern could be suggestive of underlying asthma. FVC is 95% predicted, FEV1 92% predicted, FEV1/FVC 74% of predicted, TLC 107% of predicted, RV 107% of the rectum and DLCO 87% of predicted. Intake Vital Signs07/13/18 Height 5 ft 1 in 07/13/18 Weight: 166 lb Intake Visit Reasons: 6 wk FU Music Director Required: No Accompanied by: Self Is patient in pain?: Yes Allergies Penicillins [PCN] Allergy (Verified 07/13/18 09:50) Rash Sulfa (Sulfonamide Antibiotics) Allergy (Verified 07/13/18 09:50) Hives Medications B-complex with vitamin C capsule 1 cap PO QDAY 10/07/17 [History Confirmed 07/13/18] Bifidobacterium infantis 1.5 billion cell capsule 4 mg PO QDAY 10/07/17 [History Confirmed 07/13/18] cholecalciferol (vitamin D3) 5,000 unit capsule 5,000 unit PO ONCE 10/07/17 [History Confirmed 07/13/18] mecobalamin (vitamin B12) 1,000 mcg disintegrating tablet,sublingual 1,000 mcg SUBLINGUAL QDAY 10/07/17 [History Confirmed 07/13/18] omega-3 fatty acids 1,000 mg capsule 1,000 mg PO QDAY 10/07/17 [History Confirmed 07/13/18] turmeric root extract 500 mg capsule 500 mg PO DAILY 04/26/18 [History Confirmed 07/13/18] biotin 5,000 mcg disintegrating tablet 5,000 mcg PO DAILY tab 05/25/18 [History Confirmed 07/13/18] coenzyme S19-pjzfana E 100 mg-100 unit capsule 2 cap PO QDAY cap 05/25/18 [History Confirmed 07/13/18] folic acid 1 mg tablet 2 mg PO BID tab 05/25/18 [History Confirmed 07/13/18] pregabalin 75 mg capsule 75 mg PO BID 05/25/18 [History Confirmed 07/13/18] valacyclovir 500 mg tablet 500 mg PO DAILY 05/25/18 [History Confirmed 07/13/18] doxycycline hyclate 20 mg tablet 100 mg PO BID 07/13/18 [History Confirmed 07/13/18] PFSH Medical History Obesity (Chronic) Lumbar disc disease (Chronic) Spinal stenosis (Chronic) Abnormal Pap smear of cervix (Acute) Sleep apnea (Chronic) Back pain (Chronic) Depression (Acute) Asthma (Chronic) Tubal ligation status (Resolved) MTHFR mutation (Chronic) Thoracic back pain (Chronic) History of hysterectomy (Inactive) Surgical History pelvic resconstruction by dr mcdowell (Resolved) History of back surgery (Resolved) History of LAVH (Resolved) S/P carpal tunnel release (Inactive) S/P tonsillectomy (Inactive) Status post right knee replacement (Inactive) fibroid tumor removed (Inactive) s/p low back surgery (Inactive) Family History Father Throat cancer Diabetes CVA (cerebral vascular accident) Hypertension Mother Cancer Heart disease Hypertension Rheumatoid arthritis Social History Smoking Status: Never smoker alcohol intake: never substance use type: does not use caffeine: No what type of physical activity do you participate in: walking frequency: 3-4 times per week seatbelt use: always do you feel safe at home: Yes 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 Const CONSTITUTIONAL: Positive fatigue; negative anorexia, body ache, chills, daytime sleepiness, fever(s), night sweats, oral thrush, stops breathing during sleep, weight loss, sleeping in chair, weight loss, weight gain, frequent colds, seasonal allergies, other, headache(s) or orthopnea [facility] Ear Nose Throat Mouth: Positive hearing normal and post nasal drip; negative hard of hearing, hoarseness, dry mouth in morning, change in vision, itchy eyes, eye pain, swallowing Difficulty, ear pain, nose bleed, headache(s), mouth pain, nasal congestion, nasal discharge, sinus pain, sinus pressure, sore throat or other Cardio Cardiovascular: Positive edema Location: lower extremity; negative chest pain, chest pain at rest, chest pain with activity, irregular heart rhythm, shortness of breath when lying down, palpitations, murmur or other Resp Respiratory: Positive as per HPI and shortness of breath shortness of breath: Positive with activity; negative pain with cough, wheezing, chest congestion, cough, chest tightness, pain on inspiration, inhalers, increase use of rescue inhalers, snoring, apnea or other Gastro Gastrointestional: Negative bloody stools, change in appetite, difficulty swallowing, reflux, hematemesis, melena stool, loose stool, constipation or other Genitourinary: Negative blood in urine, nocturia, pain with urination or other Musc Musculoskeletal: Positive back pain; negative body pain, neck pain or other Skin/Breast Skin/Breast: Negative dry skin, itching, rash, unusual bruising, breast lump or other Neuro Neurological: Negative restless legs, confusion, weakness or other Psych Psychocological: Negative abnormal sleep pattern, anxiety, thoughts of hurting self/others, hopelessness or other Lymph Lymphatic: Negative easy bleeding, easy bruising, swollen lymph nodes or other Exam Const Constitutional: Positive conversant, cooperative, in no acute respiratory distress, healthy appearing, well developed, well nourished and good hygiene Head Head: Positive normocephalic and atraumatic; negative cyanosis of lips/distal nose Eyes Eye: Positive clear conjunctiva; negative nystagmus or scleral abnormality Ears Ear: Positive hearing normal and external ears normal; negative hard of hearing Nose Nose: Positive external nose normal and no nasal discharge; negative epistaxis Mouth Mouth: Positive post nasal drip, oral mucosae normal, no lesions, good dentition and posterior oropharynx is adequate; negative malodorous breath or oral thrush present Mallampati Score: I: Mallampati Score Neck Neck: Positive normal visual inspection, full ROM and trachea midline; negative lymphadenopathy, JVD or tender Chest Wall Chest: Positive normal inspection of the chest and symmetric chest movement; negative increased A/P diameter Resp lung sounds: Positive clear to auscultation, good air exchange, normal expiratory time and normal respiratory effort; negative diminished, wheezes, rhonchi, rales, dullness to percussion or wheeze present on forced exhalation Cardio Cardiac: Positive regular rate, regular rhythm, S1 normal and S2 normal; negative murmur GI GI: Positive normal to inspection; negative distended Genitourinary: Positive deferred Musc Musculoskeletal: Positive steady gait and ROM normal; negative kyphosis or scoliosis Skin Pulmonary Skin Exam: Positive intact; negative rash Pulses Pulse: Yes pulses normal x4 extremities Extremities Extremities: Yes capillary refill normal, No clubbing, No cyanosis, No edema Neuro Neurologic: Yes conversant, Yes no focal neuro deficits, Yes normal concentration, Yes understands questions, Yes cooperative, Yes normal cognition, Yes normal coordination, No tremor Lymph Lymphatic: No lymphadenopathy, No tenderness, No cervical adenopathy Psych Appearance: Positive grossly normal, eye contact and well kempt Mental Status: Positive mental status grossly normal Mood: Positive congruent mood Affect: Positive normal affect Coding Level of Care Code Off vis,est,level 4 Diagnoses Cough R05 Mild intermittent asthma without complication J45.20 Asthma severity: mild Asthma persistence: intermittent Asthma complication type: uncomplicated 07/15/18 1700 <Electronically signed by Macy Eller MEASUREMENT AND VERIFICATION ENGINEERFabyC> Date Macy Eller MEASUREMENT AND VERIFICATION ENGINEER-C Cosigner Signature: Date (if applicable) CC: Hugo Sy MD CBC W/DIFF, AUTOMATED Collected: 07/13/2018 Status: F Source: [place] 10:45 AM [facility] REPOSITORY TYPE CODE TESTS RESULT OUT OF RANGE REFERENCE UNITS LAB L100.1000 4.4-11.0 K/mm3 Normal WBC 5.7 LAB L100.1200 4.2-5.4 M/mm3 Normal RBC 4.38 LAB L100.1300 12.0-15.0 g/dl Normal HGB 13.4 LAB L100.1400 37-47 % Normal HCT 40.3 LAB L100.1500 81-99 fL Normal MCV 92.0 LAB L100.1600 27.0-32.0 pg Normal MCH 30.6 LAB L100.1700 32-36 g/gl Normal MCHC 33.3 LAB L100.1810 11.6-14.6 % Normal RDW CV 13.9 LAB L100.1820 35.1-43.9 fl High RDW SD 46.3 LAB L100.1900 150-450 K/mm3 Normal PLT 250 LAB L100.2000 6.2-12.0 fl Normal MPV 10.2 LAB L100.2100 47-70 % Normal NEUT% 58.7 LAB L100.2200 19-41 % Normal LY% 26.6 LAB L100.2300 0-10 % Normal MONO% 9.8 LAB L100.2400 0-5 % Normal EO% 4.2 LAB L100.2500 0-1 % Normal BASO% 0.5 LAB L100.2550 0.0-0.9 % Normal IM GRAN % 0.200 Result Comment: IG% - Immature Granulocytes (promyelocytes, myelocytes and metamyelocytes) > 1% indicates that a LEFT SHIFT is Present. LAB L100.2620 2.0-7.7 X10 3/uL Normal Absolute Neut 3.4 LAB L100.2720 0.83-4.51 X10 3/ul Normal Absolute Lymph 1.52 Performed By: #### L100.0100 #### [facility] [place], [address] ALLERGEN, MINI-RAST Collected: 07/13/2018 Status: F Source: [place] 10:45 AM [facility] REPOSITORY TYPE CODE TESTS RESULT OUT OF REFERENCE UNITS RANGE LAB L5500.1001 Class 0 kU/L D PTERONYSSINUS Normal <0.10 LAB L5500.1002 Class 0 kU/L D FARINAE MITE Normal <0.10 LAB L5500.2001 Class 0 kU/L CAT HAIR/DANDER Normal <0.10 LAB L5500.2002 Class 0 kU/L DOG EPITHELIA Normal <0.10 LAB L5500.4002 Class 0 kU/L BERMUDA GRASS Normal <0.10 LAB L5500.4008 Class 0 kU/L [place], [place] Normal <0.10 LAB L5500.5006 Class 0 kU/L A. ALTERNATA Normal <0.10 LAB L5500.6007 Class 0 kU/L [place], WHITE Normal <0.10 LAB L5500.6008 Class 0 kU/L [place],AMER WHITE Normal <0.10 LAB L5500.7001 Class 0 kU/L [place] SH/COM Normal <0.10 LAB L5500.7009 Class 0/I kU/L PLANT[place],ENGLSH High 0.10 LAB L5500.7150 Class 0 kU/L Mouse Urine Normal <0.10 Result Comment: Performed at: [address] [id number] Gas Plant Dispatcher: Angelina Park MD, Phone: [phone] LAB L5493.1527 . Normal RAST COMMENT Comment Result Comment: Levels of Specific IgE Class Description of Class ----- < 0.10 0 Negative 0.10 - 0.31 0/I Equivocal/Low 0.32 - 0.55 I Low 0.56 - 1.40 II Moderate 1.41 - 3.90 III High 3.91 - 19.00 IV Very High 19.01 - 100.00 V Very High >100.00 Very High Performed By: #### L5500.0300 #### [facility] (refer to report for specific site) refer to report for address and phone number IMMUNOGLOBULIN E Collected: 07/13/2018 Status: F Source: [place] 10:45 AM [facility] REPOSITORY TYPE CODE TESTS RESULT OUT OF RANGE REFERENCE UNITS LAB L3200.1600 0-100 IU/mL Normal IMMUNO E 32 Result Comment: Performed at: [facility] [address] [id number] Gas Plant Dispatcher: Angelina Park MD, Phone: [phone] Performed By: #### L3200.1600, L3500.3600 #### [facility] (refer to report for specific site) refer to report for address and phone number ASPERGILLUS ANTIBODIES Collected: 07/13/2018 Status: F Source: [place] 10:45 AM [facility] REPOSITORY TYPE CODE TESTS RESULT OUT OF RANGE REFERENCE UNITS LAB L3500.3700 Neg:<1:1 Asp. Normal fumigatus Negative LAB L3500.3800 Neg:<1:1 Asp. Normal flavus Negative LAB L3500.3900 Neg:<1:1 Asp. Normal niger Negative Performed By: #### L3200.1600, L3500.3600 #### [facility] (refer to report for specific site) refer to report for address and phone number 6 MINUTE WALK TEST Observed: 06/16/2018 Status: F Source: [place] 3:10 PM [facility] REPOSITORY [facility] Pulmonary Services/Neurology [address] [place] [address] MR#: [id number] Acct: [id number] Name: SHANTE MILLARD Rep #: [id number] : 1950 68 From: Jose Angel Heart MD Referring Dr: Peter Eddy D.O. Date: Ordering Dr: Sex: F C Location: PSN PSN 6 Minute Walk Test - 6 Minute Walk Test 6 Minute Walk Test: 6 Minute Walk Test PSN:6-Minute Walk Test Start: 06/16/18 08:55 Freq: Status: Active Protocol: RESP.6MINW Document 06/16/18 08:40 [facility] (Rec: 06/16/18 09:00 [facility] [id number]) 6 Minute Walk Test Date Performed 06/16/18 Time Performed 08:40 Height 5 ft 1 in Weight: 73.936 kg Weight in Pounds 163.[address]: Peter Eddy Assistive device used: None Pre-test Oxygen Delivery Method Room Air Pulse Ox (%) 99 Pulse Rate (60-100 beats/min) 73 Dyspnea Shaina Scale (0-10) 0 Exertion Shaina Scale (6-20) 6 Number of Rests Taken 0 1st minute Oxygen Delivery Method Room Air Pulse Ox (%) 98 Pulse Rate (60-100 beats/min) 86 Number of Rests Taken 0 2nd minute Oxygen Delivery Method Room Air Pulse Ox (%) 96 Pulse Rate (60-100 beats/min) 84 Number of Rests Taken 0 3rd minute Oxygen Delivery Method Room Air Pulse Ox (%) 98 Pulse Rate (60-100 beats/min) 83 Number of Rests Taken 0 4th minute Oxygen Delivery Method Room Air Pulse Ox (%) 96 Pulse Rate (60-100 beats/min) 87 Number of Rests Taken 0 5th minute Oxygen Delivery Method Room Air Pulse Ox (%) 95 Pulse Rate (60-100 beats/min) 87 Number of Rests Taken 0 6th minute Oxygen Delivery Method Room Air Pulse Ox (%) 94 Pulse Rate (60-100 beats/min) 91 Number of Rests Taken 0 Post-test Oxygen Delivery Method Room Air Pulse Ox (%) 99 Pulse Rate (60-100 beats/min) 77 Dyspnea Shaina Scale (0-10) 2 Exertion Shaina Scale (6-20) 12 Number of Rests Taken 0 Full Laps Walked 14 Partial Lap, Number of Tiles Walked 17 Total Distance Walked (ft) 843 - Interpretation Interpretation: The patient was able to ambulate 843 feet over the course of 6 minutes on room air with no assistive devices or breaks. No significant desaturation or tachycardia was noted. These findings are consistent with a musculoskeletal limitation exercise tolerance. - Recommendations Recommendations: No supplemental oxygen is indicated at this time. 06/16/18 1510 <Electronically signed by Jose Angel Heart MD> Date Jose Angel Heart MD CC: Date Dictated: 06/16/18 150 Date Transcribed: 06/16/181501 Christmas Tree Farmer: Jose Angel Heart Signed PULMONARY FUNCTION Observed: 06/10/2018 Status: F Source: [place] TEST 12:17 PM [facility] REPOSITORY [facility] Pulmonary Services/Neurology [address] [facility] [address] [place] [address] MR#: [id number] Acct: [id number] Name: SHANTE MILLARD Rep #: [id number] : 1950 68 From: Peter Eddy DO Referring Dr: Peter Eddy D.O. Status: REG CLI Ordering Dr: Date: Location: [facility] Sex: F C INTRODUCTION: The patient is a 68-year-old female that presents for pulmonary function testing secondary to a diagnosis of shortness of breath. Respiratory therapy reports good patient effort. Bronchodilators were used during testing. INTERPRETATION: Forced expiration spirometry demonstrates the presence of a reversible mild large airways obstructive ventilatory defect. The patient had a significant mid flow bronchodilator response. Spirograms are of good quality and do not plateau indicating slow emptying of the lungs. Body plethysmography was performed and reveals lung volumes to be within normal limits. Diffusing capacity by single breath CO is within normal limits at 87% of predicted. IMPRESSION: These pulmonary function studies demonstrate the presence of a reversible mild large airways obstructive ventilatory defect with a significant mid flow bronchodilator response. This pattern could be suggestive of underlying asthma, in the appropriate clinical context. 06/10/181216 <Electronically signed by Peter Eddy DO> Date Peter Eddy DO CC: Peter Eddy D.O.; Hugo Sy MD Date Dictated: 06/10/181214 Date Transcribed: 06/10/181214 Christmas Tree Farmer: VAISHNAVI Signed PULMONARY VISIT REPORT Observed: 06/01/2018 Status: F Source: [place] 10:23 AM [facility] REPOSITORY [facility] [address] [place] [address] OFFICE VISIT Date of Service: 06/01/18 MR#: [id number] Acct: [id number] Name: SHANTE MILLARD Rep #: [id number] : 1950 Provider: Peter Eddy D.O. Age/Sex: 68/F [facility] [facility] Status: Signed Assessment AND Plan 1. Shortness of breath R06.02 Plan The patient's shortness of breath appears to be primarily exertional in nature and related to exercise. She may certainly have an underlying component of exercise-induced bronchospasm. At the current time, I am going to obtain baseline pulmonary function testing on her along with a 6-minute walk test to assess for any exertional hypoxia. She will be provided with an as needed albuterol rescue inhaler to be utilized 15-20 minutes before exercise and throughout the day as needed. The patient will have a short interval follow- up with our nurse practitioner to discuss the results of her testing and to review her response to therapy. Orders Orders: 2. Sleep apnea G47.30 Plan Currently compliant with nocturnal Pap therapy, which is being managed by an outside provider. Plan Detail Follow Up 6 Weeks (CSM) HPI HPI Comments Details: The patient is a 68-year-old female who presents to the clinic today in referral for evaluation of asthma. The patient is currently followed by Dr. Hugo Sy of [facility]. 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 She was previously followed by Dr. Hernandez (bank vault attendant). She states that she was previously prescribed Symbicort and as needed albuterol multiple years ago when she was following with the aforementioned provider. The patient then slowly weaned herself off of all inhalers and has been without them for approximately 3 years. She now reports that she has been experiencing primarily exertional dyspnea for approximately 4 months. She does report that it is most pronounced when she is exercising. She additionally reports some mild degree of wheezing, without chest tightness. She is a lifelong non-smoker, but does have significant secondhand smoke exposure. She does not recall ever having undergone formal pulmonary function testing. She does not keep any pets in her home environment. 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 She does not currently utilize any inhalers at the present time. Her weight has been stable. She denies fevers, chills or night sweats. She denies chest pain, dizziness or lightheadedness. She was never diagnosed with asthma in childhood. Intake Vital Signs06/01/18 Height 5 ft 1 in 06/01/18 Weight: 167 lb Intake Visit Reasons: Shortness of breath Accompanied by: Self Allergies Penicillins [PCN] Allergy (Verified 06/01/18 09:40) Rash Sulfa (Sulfonamide Antibiotics) Allergy (Verified 06/01/18 09:40) Hives Medications B-complex with vitamin C capsule 1 cap PO QDAY 10/07/17 [History Confirmed 06/01/18] Bifidobacterium infantis 1.5 billion cell capsule 4 mg PO QDAY 10/07/17 [History Confirmed 06/01/18] cholecalciferol (vitamin D3) 5,000 unit capsule 5,000 unit PO ONCE 10/07/17 [History Confirmed 06/01/18] mecobalamin (vitamin B12) 1,000 mcg disintegrating tablet,sublingual 1,000 mcg SUBLINGUAL QDAY 10/07/17 [History Confirmed 06/01/18] omega-3 fatty acids 1,000 mg capsule 1,000 mg PO QDAY 10/07/17 [History Confirmed 06/01/18] turmeric root extract 500 mg capsule 500 mg PO DAILY 04/26/18 [History Confirmed 06/01/18] biotin 5,000 mcg disintegrating tablet 5,000 mcg PO DAILY tab 05/25/18 [History Confirmed 06/01/18] coenzyme F40-efegdmt E 100 mg-100 unit capsule 2 cap PO QDAY cap 05/25/18 [History Confirmed 06/01/18] folic acid 1 mg tablet 2 mg PO BID tab 05/25/18 [History Confirmed 06/01/18] pregabalin 75 mg capsule 75 mg PO BID 05/25/18 [History Confirmed 06/01/18] valacyclovir 500 mg tablet 500 mg PO DAILY 05/25/18 [History Confirmed 06/01/18] PFSH Medical History Obesity (Chronic) Lumbar disc disease (Chronic) Spinal stenosis (Chronic) Abnormal Pap smear of cervix (Acute) Sleep apnea (Chronic) Back pain (Chronic) Depression (Acute) Asthma (Chronic) Tubal ligation status (Resolved) MTHFR mutation (Chronic) Thoracic back pain (Chronic) History of hysterectomy (Inactive) Surgical History pelvic resconstruction by dr mcdowell (Resolved) History of back surgery (Resolved) History of LAVH (Resolved) S/P carpal tunnel release (Inactive) S/P tonsillectomy (Inactive) Status post right knee replacement (Inactive) fibroid tumor removed (Inactive) s/p low back surgery (Inactive) Family History Father Throat cancer Diabetes CVA (cerebral vascular accident) Hypertension Mother Cancer Heart disease Hypertension Rheumatoid arthritis Social History Smoking Status: Never smoker alcohol intake: never substance use type: does not use caffeine: No what type of physical activity do you participate in: walking frequency: 3-4 times per week seatbelt use: always do you feel safe at home: Yes 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 Const CONSTITUTIONAL: Positive fatigue; negative anorexia, body ache, chills, daytime sleepiness, fever(s), night sweats, oral thrush, stops breathing during sleep, weight loss, sleeping in chair, weight loss, weight gain, frequent colds, seasonal allergies, other, headache(s) or orthopnea EETM Ear Nose Throat Mouth: Positive hearing normal; negative hard of hearing, hoarseness, dry mouth in morning, change in vision, itchy eyes, eye pain, swallowing Difficulty, ear pain, nose bleed, headache(s), mouth pain, nasal congestion, nasal discharge, post nasal drip, sinus pain, sinus pressure, sore throat or other Cardio Cardiovascular: Negative chest pain, chest pain at rest, chest pain with activity, irregular heart rhythm, edema, shortness of breath when lying down, palpitations, murmur or other Resp Respiratory: Positive as per HPI, shortness of breath shortness of breath: Positive with activity and cough cough: Positive non-productive; negative pain with cough, wheezing, chest congestion, chest tightness, pain on inspiration, inhalers, increase use of rescue inhalers, snoring, apnea or other Gastro Gastrointestional: Negative bloody stools, change in appetite, difficulty swallowing, reflux, hematemesis, melena stool, loose stool, constipation or other Genitourinary: Negative blood in urine, nocturia, pain with urination or other Musc Musculoskeletal: Positive back pain; negative body pain, neck pain or other Skin/Breast Skin/Breast: Negative dry skin, itching, rash, unusual bruising, breast lump or other Neuro Neurological: Negative restless legs, confusion, weakness or other Psych Psychocological: Negative abnormal sleep pattern, anxiety, thoughts of hurting self/others, hopelessness or other Lymph Lymphatic: Negative easy bleeding, easy bruising, swollen lymph nodes or other Exam Const Constitutional: Positive conversant, cooperative, in no acute respiratory distress, well developed, well nourished and good hygiene Head Head: Positive normocephalic and atraumatic; negative cyanosis of lips/distal nose Eyes Eye: Positive clear conjunctiva; negative nystagmus or scleral abnormality Ears Ear: Positive hearing normal; negative hard of hearing Nose Nose: Positive external nose normal; negative epistaxis Mouth Mouth: Positive oral mucosae normal and posterior oropharynx is adequate; negative no lesions or post nasal drip Mallampati Score: II: Mallampati Score Neck Neck: Positive normal visual inspection and trachea midline; negative lymphadenopathy Chest Wall Chest: Positive symmetric chest movement Normal AP diameter. Resp lung sounds: Positive clear to auscultation, good air exchange and normal expiratory time; negative wheezes, rhonchi or rales Cardio Cardiac: Positive regular rate, regular rhythm, S1 normal and S2 normal; negative rub, gallop or murmur GI GI: Positive normal bowel sounds Soft without distention Genitourinary: Positive deferred Musc Musculoskeletal: Positive steady gait Skin Pulmonary Skin Exam: Positive intact; negative lesion, ulcers, dermal atrophy or rash Pulses Pulse: Yes Pedal pulses present: Extremities Extremities: No clubbing, No cyanosis, No edema Neuro Neurologic: Yes conversant, Yes no focal neuro deficits, Yes cooperative Lymph Lymphatic: No lymphadenopathy Psych Appearance: Positive grossly normal Mental Status: Positive mental status grossly normal Mood: Positive congruent mood Affect: Positive normal affect Coding Level of Care Code Off vis,new,level 4 Diagnoses Shortness of breath R06.02 Sleep apnea G47.30 06/01/18 1023 <Electronically signed by Peter Eddy DO> Date Peter Eddy DO Cosigner Signature: Date (if applicable) CC: Hugo Sy MD SCREENING MAMM (CAD), Observed: 05/25/2018 Status: F Source: [place] 10:20 AM [facility] REPOSITORY [facility] Imaging Services [address] [place] [address] SCREENING MAMM (CAD), BILAT MR#: [id number] Acct: [id number] Name: SHANTE MILLARD Rep #: [id number] : 1950 F 68 From: Delano Gregorio MD PCP: Hugo Sy MD Status: REG CLI Study: SCREENING MAMM (CAD), BILAT Date of Exam: 05/25/18 Exam# [id number] Ordering Dr: Aleksandra Lopez MD MAMMOGRAPHY - BILATERAL SCREENING 3-D TATE SYNTHESIS REASON FOR EXAM: Female, 68 years old. Bilateral Screening 3-D tomosynthesis PERTINENT HISTORY: Asymptomatic. Left breast biopsy 2006. Family breast carcinoma, paternal aunt age 40-50 and paternal first cousin age 74. TECHNIQUE: 2-D mammograms and 3-D Tate synthesis of the breast (s) were performed. CAD was performed. COMPARISON: 05/25/2017, 05/21/2016 and 03/11/2015. FINDINGS: The breast composition is heterogeneously dense that can obscure small breast masses. Scattered benign appearing calcifications are seen. No dense spiculated dominant masses or suspicious microcalcification cluster are identified. No new architectural distortion, asymmetric density, adenopathy, skin thickening or nipple retraction identified. No change tiny biopsy clip left breast lower inner quadrant. BI/SCREENING MAMM (CAD), BILAT IMPRESSION: No mammographic sign of malignancy. Routine yearly mammograms recommended. ASSESSMENT CATEGORY: BIRADS Category 2: Benign. A letter regarding these results will be sent to the patient by the facility within 30 days. FOLLOW UP RECOMMENDATION: Yearly follow up mammogram recommended. (A) Negative mammographic results should not deter biopsy as any palpable lesion if present should be followed based on clinical grounds and biopsy performed if clinically persistent for 3 months or increasing size. Approximately 10% of breast cancers are not detected by mammography. A normal mammogram should not delay biopsy of a clinically suspicious abnormality. Dense breast tissue may obscure neoplasm. Electronically Signed: Delano Gregorio, at 19:58 EDT Tel , Service support , CC: Hugo Sy MD; Aleksandra Lopez MD Christmas Tree Farmer: Signed PROGRESS Observed: 05/05/2018 Status: COMPLETED Source: [place] 3:03 PM [facility] REPOSITORY HNO ID: [id number] Author: Rico (Soumya) Edd Service: (none) Author Type: Nurse Practitioner Type: Progress Notes Filed: 05/05/2018 4:20 PM Note Text: [facility] Follow-up/Established patient visit Date of last visit: 12/01/17 Diagnostic Conclusions: Obstructive Sleep Apnea - severe Airway limitation due to tissue excess in airway related to excess body weight (if overweight/obese), possible crowded upper airway, and reduced neuromuscular coordination of airway during sleep related to normal aging. ? Other conditions targeted directly or indirectly by intervention: HTN ? Actions Taken Reviewed reasons for treating sleep apnea in group format. Individual review of patient's CONOR status and treatment regimen. RT from [place] worked with her ? Plan: Take smart card to [place], I will send her a [employer] re compliance report Take machine to [place], learn how to set humidity Try flonase Follow up visit in one yr ? Self-reports Sleep issues due to back and neck pain ? Objective Data Friendly and cooperative Blood pressure 157/82, pulse 71, resp. rate 16. ? This visit occurred of a group-based Shared Medical Activity, which included brief education and facilitated group interaction principally to enhance the understanding of and compliance with PAP therapy. This education emphasizes the benefits to daily functioning (reduced sleepiness, improved Energy, reduced fatigue, and reduced irritability) that may accrue to many patients, but especially emphasizes the importance of adverse cardiovascular and metabolic outcomes (heart attacks, strokes, hypertension, and worsening diabetes) that compliance to PAP therapy is intended to forestall or delay. This activity is directed at problems pertinent to CPAP mask therapy, and includes DME providers who were also available for immediate contact and intervention. ? Audra Monreal CNP ? ? HPI: SLEEP APNEA Sleep apnea type : CONOR, Most Recent Apnea-Hypopnea Index (AHI): 40 Treatment : PAP therapy DME: [facility] PAP History: Uses CPAP 7 nights per week. Current PAP settin cm H2O. Difficulties with CPAP: Yes: old and broken beyond repair Reviewed objective PAP compliance data: none available Mask type: nasal pillow interface Mask issues: need for new head gear Uses chin strap: No Uses humidity: Yes, Protocol: distilled water There is a perceived benefit by the patient: sleeping well with therapy Observers report abolition of snoring with CPAP use. SLEEP FUNCTIONAL OUTCOME MEASURES: reviewed and uploaded. See end of note for questionnaire answers. PAST MEDICAL HISTORY Diagnosis Date - Asthma Dr. 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 ALLERGIES Allergen Reactions - Benedryl [Diphenhyd* GI Upset Patient felt hazy for several days after Colonoscopy for a while due to benedryl - Penicillins - Sulfa (Sulfonamide * CURRENT MEDICATIONS: CPAP 1 Device by MISCELLANEOUS route daily at bedtime. Settings 5 - 10 cm H2O, suitable mask per pt preference, chin strap, head gear, humidity, tubing, lifetime supplies. G47.33 Obstructive Sleep Apnea pregabalin (LYRICA) 75 mg capsule Take 75 mg by mouth twice daily. FEXOFENADINE HCL (RADHIKA ALLERGY ORAL) Take 1 tablet by mouth as needed. oxyCODONE ir (OXYIR) 5 mg capsule Take 1 capsule by mouth every 6 hours as needed for Pain. CALCIUM CARBONATE/VITAMIN D3 (VITAMIN D-3 ORAL) Take by mouth. Biotin 2,500 mcg cap Take by mouth. valACYclovir (VALTREX) 500 mg tablet Take 500 mg by mouth twice daily. COMPOUNDED PRESCRIPTION Pain- BG CPAP Mask (per patient preference) optional chin strap (if indicated) , filters, heated tubing, humidifier and lifetime supplies. Dx. CONOR 327.23 folic acid 1 mg tablet Take 2 tablets by mouth twice daily. CALCIUM CARBONATE (CALCIUM 500 ORAL) Take 1 tablet by mouth. Magnesium 250 mg tab Take 250 mg by mouth once daily. tiZANidine (ZANAFLEX) 4 mg tablet Take 0.5-1 tablets by mouth every 6 hours as needed (muscle spasms). lactobacillus acidophilus (ACIDOPHILUS) cap Take 1-2 capsules by mouth once daily as needed. Turmeric, Bulk, (CURCUMIN) 95 % powd resveratrol 100 mg cap Take by mouth. vitamin b complex (B COMPLEX 1) tab Take 1 tablet by mouth once daily. 100 mg cyanocobalamin (VITAMIN B-12) 1,000 mcg tab Take 1 tablet by mouth once daily. azelastine-fluticasone (DYMISTA) 137-50 mcg/spray spry Use 1 [place] in each nostril twice daily as needed. Biotin-Silicon Fspj-D-Mpioewra 5,000 mcg-100 mg- 50 mg tab Take by mouth once daily. [place]-3 Fatty Acids, FISH OIL, (FISH OIL) 360-1,200 mg cap Take 1 capsule by mouth twice daily. Coenzyme Q10 (CO Q-10) 200 mg cap Take by mouth once daily. CPAP CPAP 9 cmH2O, suitable mask, tubing, humidifier, filters. Lifetime supplies. Dx: 327.23 - Obstructive sleep apnea . Fax download to Dr Newell [phone] Vital signs: BP 112/71 (BP Site: Left Arm, BP Position: Sitting, BP Cuff Size: Large Adult) Pulse 83 Resp 16 Wt 74.9 kg (165 lb 3.2 oz) BMI 30.21 kg/m? PHYSICAL EXAM: General appearance: NAD, appropriate attire for season Mental status: Alert and oriented, good eye contact Speech: Logical and goal directed Constitutional: WNL Skin: Warm, dry, and intact Musculoskeletal/ Extremities: No edema, cyanosis or clubbing, normal ROM Neuro: Gait stable, no tremors, hearing intact to conversation Impression: G47.33 CONOR (obstructive sleep apnea) AHI 40 (primary encounter diagnosis) I10 Essential hypertension, benign 68 yo female on PAP therapy and current CPAP greater then 5 years and broken beyond repair- humidity and pressures are broken. Need for new supplies, but needs to be set up with a new DME as [employer] is going out of business. Plan: - Will start Auto CPAP 5-10 cmH2O with a Nasal mask. - I will have a prescription sent to a DME (durable medical equipment) company - [employer] who will be calling you in the next 1- 2 weeks or so. Please call them directly or us if you do not hear from them in this time frame. - You should be eligible for new supplies approximately every 3-6 months, depending on your insurance coverage. - If your mask doesn't fit well, call the DME company before 30 days are up to get a new mask without an additional charge. - Insurance requires regular usage and periodic office follow ups for PAP therapy, to continue to cover supplies. [facility] REQUIREMENTS: - Your insurance requires a [id number] follow up visit within a 31-90 day period after starting CPAP. - Your insurance requires compliance with CPAP, which is at least 4 hours per night for 70% of the time. This must be done over a 30 day period and must occur within the initial 31-90 day period after starting CPAP. - Your insurance also requires at least yearly follow ups to continue to pay for CPAP supplies. Follow up in 3 months Rico Puga APRN.SOUMYA OVALLE Observed: 05/05/2018 Status: COMPLETED Source: [place] 3:00 PM [facility] REPOSITORY Office Visit ([place]) SHANTE MILLARD ([id number]) 1950 F HERMELINDO Date Time Provider Department 05/05/18 3:00 PM RICO PUGA) ANKUR During your visit today, we recorded the following information about you: Pulse Respiration Blood pressure Weight 83/minute 16/minute 112/71 74.9 kg Rico Puga APRN.CNP 05/05/2018 4:20 PM Signed [facility] Follow-up/Established patient visit Date of last visit: 12/01/17 Diagnostic Conclusions: Obstructive Sleep Apnea - severe Airway limitation due to tissue excess in airway related to excess body weight (if overweight/obese), possible crowded upper airway, and reduced neuromuscular coordination of airway during sleep related to normal aging. ? Other conditions targeted directly or indirectly by intervention: HTN ? Actions Taken Reviewed reasons for treating sleep apnea in group format. Individual review of patient's CONOR status and treatment regimen. RT from [place] worked with her ? Plan: Take smart card to [facility], I will send her a Ali msg re compliance report Take machine to [facility], learn how to set humidity Try flonase Follow up visit in one yr ? Self-reports Sleep issues due to back and neck pain ? Objective Data Friendly and cooperative Blood pressure 157/82, pulse 71, resp. rate 16. ? This visit occurred of a group-based Shared Medical Activity, which included brief education and facilitated group interaction principally to enhance the understanding of and compliance with PAP therapy. This education emphasizes the benefits to daily functioning (reduced sleepiness, improved Energy, reduced fatigue, and reduced irritability) that may accrue to many patients, but especially emphasizes the importance of adverse cardiovascular and metabolic outcomes (heart attacks, strokes, hypertension, and worsening diabetes) that compliance to PAP therapy is intended to forestall or delay. This activity is directed at problems pertinent to CPAP mask therapy, and includes DME providers who were also available for immediate contact and intervention. ? Audra Monreal CNP ? ? HPI: SLEEP APNEA Sleep apnea type : CONOR, Most Recent Apnea-Hypopnea Index (AHI): 40 Treatment : PAP therapy DME: [facility] PAP History: Uses CPAP 7 nights per week. Current PAP settin cm H2O. Difficulties with CPAP: Yes: old and broken beyond repair Reviewed objective PAP compliance data: none available Mask type: nasal pillow interface Mask issues: need for new head gear Uses chin strap: No Uses humidity: Yes, Protocol: distilled water There is a perceived benefit by the patient: sleeping well with therapy Observers report abolition of snoring with CPAP use. SLEEP FUNCTIONAL OUTCOME MEASURES: reviewed and uploaded. See end of note for questionnaire answers. PAST MEDICAL HISTORY Diagnosis Date - Asthma Dr. 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 ALLERGIES Allergen Reactions - Benedryl [Diphenhyd* GI Upset Patient felt hazy for several days after Colonoscopy for a while due to benedryl - Penicillins - Sulfa (Sulfonamide * CURRENT MEDICATIONS: CPAP 1 Device by MISCELLANEOUS route daily at bedtime. Settings 5 - 10 cm H2O, suitable mask per pt preference, chin strap, head gear, humidity, tubing, lifetime supplies. G47.33 Obstructive Sleep Apnea pregabalin (LYRICA) 75 mg capsule Take 75 mg by mouth twice daily. FEXOFENADINE HCL (RADHIKA ALLERGY ORAL) Take 1 tablet by mouth as needed. oxyCODONE ir (OXYIR) 5 mg capsule Take 1 capsule by mouth every 6 hours as needed for Pain. CALCIUM CARBONATE/VITAMIN D3 (VITAMIN D-3 ORAL) Take by mouth. Biotin 2,500 mcg cap Take by mouth. valACYclovir (VALTREX) 500 mg tablet Take 500 mg by mouth twice daily. COMPOUNDED PRESCRIPTION Pain- BG CPAP Mask (per patient preference) optional chin strap (if indicated) , filters, heated tubing, humidifier and lifetime supplies. Dx. CONOR 327.23 folic acid 1 mg tablet Take 2 tablets by mouth twice daily. CALCIUM CARBONATE (CALCIUM 500 ORAL) Take 1 tablet by mouth. Magnesium 250 mg tab Take 250 mg by mouth once daily. tiZANidine (ZANAFLEX) 4 mg tablet Take 0.5-1 tablets by mouth every 6 hours as needed (muscle spasms). lactobacillus acidophilus (ACIDOPHILUS) cap Take 1-2 capsules by mouth once daily as needed. Turmeric, Bulk, (CURCUMIN) 95 % powd resveratrol 100 mg cap Take by mouth. vitamin b complex (B COMPLEX 1) tab Take 1 tablet by mouth once daily. 100 mg cyanocobalamin (VITAMIN B-12) 1,000 mcg tab Take 1 tablet by mouth once daily. azelastine-fluticasone (DYMISTA) 137-50 mcg/spray spry Use 1 Dows in each nostril twice daily as needed. Biotin-Silicon Pddu-N-Cxgvjfvf 5,000 mcg-100 mg- 50 mg tab Take by mouth once daily. [place]-3 Fatty Acids, FISH OIL, (FISH OIL) 360-1,200 mg cap Take 1 capsule by mouth twice daily. Coenzyme Q10 (CO Q-10) 200 mg cap Take by mouth once daily. CPAP CPAP 9 cmH2O, suitable mask, tubing, humidifier, filters. Lifetime supplies. Dx: 327.23 - Obstructive sleep apnea . Fax download to Dr Newell [phone] Vital signs: BP 112/71 (BP Site: Left Arm, BP Position: Sitting, BP Cuff Size: Large Adult) Pulse 83 Resp 16 Wt 74.9 kg (165 lb 3.2 oz) BMI 30.21 kg/m? PHYSICAL EXAM: General appearance: NAD, appropriate attire for season Mental status: Alert and oriented, good eye contact Speech: Logical and goal directed Constitutional: WNL Skin: Warm, dry, and intact Musculoskeletal/ Extremities: No edema, cyanosis or clubbing, normal ROM Neuro: Gait stable, no tremors, hearing intact to conversation Impression: G47.33 CONOR (obstructive sleep apnea) AHI 40 (primary encounter diagnosis) I10 Essential hypertension, benign 68 yo female on PAP therapy and current CPAP greater then 5 years and broken beyond repair- humidity and pressures are broken. Need for new supplies, but needs to be set up with a new DME as [employer] is going out of business. Plan: - Will start Auto CPAP 5-10 cmH2O with a Nasal mask. - I will have a prescription sent to a [employer]) company - [employer] who will be calling you in the next 1-2 weeks or so. Please call them directly or us if you do not hear from them in this time frame. - You should be eligible for new supplies approximately every 3-6 months, depending on your insurance coverage. - If your mask doesn't fit well, call the [employer] company before 30 days are up to get a new mask without an additional charge. - Insurance requires regular usage and periodic office follow ups for PAP therapy, to continue to cover supplies. [facility] REQUIREMENTS: - Your insurance requires a gkuy-fi-ydsc follow up visit within a 31-90 day period after starting CPAP. - Your insurance requires compliance with CPAP, which is at least 4 hours per night for 70% of the time. This must be done over a 30 day period and must occur within the initial 31-90 day period after starting CPAP. - Your insurance also requires at least yearly follow ups to continue to pay for CPAP supplies. Follow up in 3 months Rico Puga APRN.SOUMYA Puga APRN.CNP 05/05/2018 3:37 PM Signed Plan: - Will start Auto CPAP 5-10 cmH2O with a Nasal mask. - I will have a prescription sent to a [employer]) company - [employer] who will be calling you in the next 1-2 weeks or so. Please call them directly or us if you do not hear from them in this time frame. - You should be eligible for new supplies approximately every 3-6 months, depending on your insurance coverage. - If your mask doesn't fit well, call the DME company before 30 days are up to get a new mask without an additional charge. - Insurance requires regular usage and periodic office follow ups for PAP therapy, to continue to cover supplies. [facility] REQUIREMENTS: - Your insurance requires a [id number]-[id number] follow up visit within a 31-90 day period after starting CPAP. - Your insurance requires compliance with CPAP, which is at least 4 hours per night for 70% of the time. This must be done over a 30 day period and must occur within the initial 31-90 day period after starting CPAP. - Your insurance also requires at least yearly follow ups to continue to pay for CPAP supplies. Referring Provider: MARIANNA NEWELL [[id number]] Allergies As of Date: 05/05/2018 Noted Allergy Reaction BENEDRYL (DIPHENHYDRAMINE) 11/07/2014 8 - GI Upset Comments: Patient felt hazy for several days after Colonoscopy for a while due to benedryl PENICILLINS 06/04/2009 SULFA (SULFONAMIDE ANTIBIOTICS) 06/04/2009 Date Reviewed: 05/05/2018 Reviewed by: Rico ([facility]) Edd - Fully Assessed Reason for Visit: Established Patient [175] Cmt: yearly CPAP check up for supplies Primary Visit Diagnosis:CONOR (obstructive sleep apnea) AHI 40 [G47.33] Other Visit Diagnosis:Essential hypertension, benign [I10] Order(s):CPAP1 Device by MISCELLANEOUS route daily at bedtime. Settings 5 - 10 cm H2O, suitable mask per pt preference, chin strap, head gear, humidity, tubing, lifetime supplies. G47.33 Obstructive Sleep ApneaDisp: 1 DeviceRfl: 0 Prescriptions as of 05/05/2018 Sig: CPAP 1 Device by MISCELLANEOUS rou* PREGABALIN 75 MG CAPSULE Take 75 mg by mouth twice aristeo* RADHIKA ALLERGY ORAL Take 1 tablet by mouth as nee* OXYCODONE 5 MG CAPSULE Take 1 capsule by mouth every* VITAMIN D-3 ORAL Take by mouth. BIOTIN 2,500 MCG CAPSULE Take by mouth. VALACYCLOVIR 500 MG TABLET Take 500 mg by mouth twice da* COMPOUNDED PRESCRIPTION Pain- BG CPAP Mask (per patient preference)* FOLIC ACID 1 MG TABLET Take 2 tablets by mouth twice* CALCIUM 500 ORAL Take 1 tablet by mouth. MAGNESIUM 250 MG TABLET Take 250 mg by mouth once aristeo* TIZANIDINE 4 MG TABLET Take 0.5-1 tablets by mouth e* LACTOBACILLUS ACIDOPHILUS CAP* Take 1-2 capsules by mouth on* TURMERIC (BULK) 95 % POWDER RESVERATROL 100 MG CAPSULE Take by mouth. VITAMIN B COMPLEX TABLET Take 1 tablet by mouth once d* CYANOCOBALAMIN (VIT B-12) 1,0* Take 1 tablet by mouth once d* AZELASTINE-FLUTICASONE 137 MC* Use 1 Dows in each nostril t* BIOTIN 5,000 MCG-SILICON DIOX* Take by mouth once daily. OMEGA-3 FATTY ACIDS-FISH OIL * Take 1 capsule by mouth twice* COENZYME Q10 200 MG CAPSULE Take by mouth once daily. CPAP CPAP 9 cmH2O, suitable mask, * More... Problem List As Of Date 05/05/2018 Noted Resolved Routine Gynecological Examination [Z01.419] INVALID FOR* Class: Chronic More... DDD (degenerative disc disease) [ROQ3117] INVALID FOR* More... Fibroid Uterus [D25.9] INVALID FOR* Asthma [J45.909] INVALID FOR* More... Penicillin Allergy [Z88.0] INVALID FOR* Acne [L70.9] INVALID FOR* More... Essential Hypertension, Benign [I10] INVALID FOR* MTHFR Mutation [E72.12] INVALID FOR* More... Impaired fasting glucose [R73.01] INVALID FOR* CONOR (obstructive sleep apnea) AHI 40 [G47.33] INVALID FOR* More... Obesity [E66.9] INVALID FOR*03/21/2014 Depression [F32.9] INVALID FOR*09/26/2013 Excessive sleepiness [G47.10] INVALID FOR*09/26/2013 Thoracic radiculopathy due to intervertebral di*INVALID FOR* Thoracic or lumbosacral neuritis or radiculitis*INVALID FOR*03/30/2017 Radiculopathy, thoracic region [M54.14] INVALID FOR* Other instructions from your clinician: Plan: - Will start Auto CPAP 5-10 cmH2O with a Nasal mask. - I will have a prescription sent to a [employer] who will be calling you in the next 1-2 weeks or so. Please call them directly or us if you do not hear from them in this time frame. - You should be eligible for new supplies approximately every 3-6 months, depending on your insurance coverage. - If your mask doesn't fit well, call the DME company before 30 days are up to get a new mask without an additional charge. - Insurance requires regular usage and periodic office follow ups for PAP therapy, to continue to cover supplies. [facility] REQUIREMENTS: - Your insurance requires a roal-cw-hyxb follow up visit within a 31-90 day period after starting CPAP. - Your insurance requires compliance with CPAP, which is at least 4 hours per night for 70% of the time. This must be done over a 30 day period and must occur within the initial 31-90 day period after starting CPAP. - Your insurance also requires at least yearly follow ups to continue to pay for CPAP supplies. Prescriptions ordered this encounter Disp Refills Start End CPAP 1 De* 0 05/05/2018 Class: Print RX Cmt: Changing DME, [facility] patient. Current machine broken beyond repair and 5 years old. Route: MISCELL. Si Device by MISCELLANEOUS route daily at bedtime. Settings 5 - 10 cm H2O, suitable mask per pt preference, chin strap, head gear, humidity, tubing, lifetime supplies. G47.33 Obstructive Sleep Apnea Disposition: Return in about 3 months (around 08/04/2018). Follow-up and Disposition History Recorded Encounter Status:Closed by RICO PUGA on 05/05/18 [employer] MACHINE OFFICE VISIT Observed: 04/26/2018 Status: F Source: [place] REPORT 3:15 PM [facility] [address] [place] [address] OFFICE VISIT Date of Service: 04/26/18 MR#: [id number] Acct: [id number] Name: SHANTE MILLARD Rep #: [id number] : 1950 Provider: Aleksandra Lopez MD Age/Sex: 68/F Location: [facility] [place] Status: Signed Intake Vital Signs04/26/18 Height 5 ft 1 in 04/26/18 Weight: 161 lb 8 oz 04/26/18 Body Mass Index (BMI) 30.5 04/26/18 Blood Pressure 144/86 Intake Visit Reasons: ANNUAL - REFERRED BY SCOOTER MCDOWELL Chief Complaint: annual Music Director Required: No Is patient in pain?: No Allergies Penicillins [PCN] Allergy (Verified 04/26/18 13:35) Rash Sulfa (Sulfonamide Antibiotics) Allergy (Verified 04/26/18 13:35) Hives Medications B-complex with vitamin C capsule 1 cap PO QDAY 10/07/17 [History Confirmed 04/26/18] Bifidobacterium infantis 1.5 billion cell capsule 4 mg PO QDAY 10/07/17 [History Confirmed 04/26/18] biotin 2,500 mcg capsule 2,500 mcg PO ONCE 10/07/17 [History Confirmed 04/26/18] cholecalciferol (vitamin D3) 5,000 unit capsule 5,000 unit PO ONCE 10/07/17 [History Confirmed 04/26/18] coenzyme Q10 75 mg capsule 200 mg PO ONCE cap 10/07/17 [History Confirmed 04/26/18] mecobalamin (vitamin B12) 1,000 mcg disintegrating tablet,sublingual 1,000 mcg SUBLINGUAL QDAY 10/07/17 [History Confirmed 04/26/18] omega-3 fatty acids 1,000 mg capsule 1,000 mg PO QDAY 10/07/17 [History Confirmed 04/26/18] pregabalin 75 mg capsule 75 mg PO BID 10/07/17 [History Confirmed 04/26/18] chromium picolinate 200 mcg capsule 200 mcg PO DAILY 04/26/18 [History Confirmed 04/26/18] fexofenadine 60 mg capsule 60 mg PO BID 04/26/18 [History Confirmed 04/26/18] magnesium oxide 400 mg capsule 400 mg PO DAILY cap 04/26/18 [History Confirmed 04/26/18] turmeric root extract 500 mg capsule 500 mg PO DAILY 04/26/18 [History Confirmed 04/26/18] Is last menstrual period known: No Post menopausal: Yes Patient : No : No PFSH Medical History Sleep apnea (Chronic) Back pain (Chronic) Asthma (Chronic) Abnormal Pap smear of cervix (Acute) Depression (Acute) pelvic resconstruction by dr mcdowell (Acute) MTHFR mutation (Chronic) Thoracic back pain (Chronic) Surgical History History of LAVH (Acute) History of back surgery (Acute) Tubal ligation status (Resolved) History of hysterectomy (Inactive) S/P carpal tunnel release (Inactive) S/P tonsillectomy (Inactive) Status post right knee replacement (Inactive) fibroid tumor removed (Inactive) s/p low back surgery (Inactive) Family History Father Throat cancer Diabetes CVA (cerebral vascular accident) Hypertension Mother Cancer Heart disease Hypertension Rheumatoid arthritis Social History Smoking Status: Never smoker alcohol intake: never substance use type: does not use caffeine: No what type of physical activity do you participate in: walking frequency: 3-4 times per week seatbelt use: always do you feel safe at home: Yes 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 DatName GA/WeeksOutcome Route [facility] h[facility] tn Unknown 1970 Bonnie ross Unknown 1973 Mohan Millard HPI ANNUAL - REFERRED BY SCOOTER MCDOWELL: Details: SHANTE MILLARD is 68 year old who presents for annual exam. sees dr sy Last PAP: normal History of abnormal PAP: abnormal Last mammogram: due History of abnormal mammogram: yes Colon cancer screening: up to date Other preventative health care screenings: up to date Female Reproductive History Questions: Metorrhagia: No, Sexually active: Yes, Dyspareunia: No, PCB: No ROS Const Constitutional: Reports as per HPI; denies poor appetite, fatigue, increased appetite, weight gain or weight loss Cardio Card: Denies chest pain Resp Resp: Denies dyspnea or cough GI GI: Reports as per HPI; denies bloating, abdominal pain, constipation, vomiting or nausea : Reports as per HPI, urinary incontinence (occasional urge) and other; denies blood in urine, vaginal odor, vaginal itching, vaginal dryness, vaginal discharge, urinary urgency, urinary frequency, pelvic pain, painful urination, difficulty urinating, prolapse symptoms or nipple discharge Skin Skin/Breast: Denies breast pain, breast skin changes, nipple discharge, breast lump or changing lesions Exam Const General: cooperative, healthy appearing, comfortable, no acute distress, well developed, well groomed HENNV Head: normal to inspection, normocephalic Ears: hearing grossly normal bilaterally, external ears normal Nose: external nose normal Face and sinus: normal facial exam Neck Neck: normal visual inspection, full ROM, no lymphadenopathy Thyroid: thyroid normal Chest Chest palpation AND inspection: normal inspection of the chest Breast inspection: normal inspection of the breasts, normal inspection of the axillae Breast palpation: normal palpation of the breasts, normal palpation of the axillae, no axillary lymphadenopathy Resp Effort AND Inspection: normal respiratory effort GI Inspection: normal to inspection, non-distended Palpation: no guarding, soft, no hepatosplenomegaly External Female Exam: normal external appearance, normal appearance of the urethra, no lesions Urethra: normal appearance of the urethra, normal palpation Speculum Exam - Vagina: normal appearance of the vagina, normal vaginal discharge Skin General: no rashes or lesions noted Neuro General: alert, moves all extremities, no focal motor deficits Extrem General: no pedal edema, normal to inspection Psych Appearance: grossly normal Mental Status: mental status grossly normal Affect: normal affect Speech and Movement: speech and movement normal Attitude: cooperative Assessment AND Plan Problems 1. Encounter for gynecological examination without abnormal finding Z01.419 Plan Cervical cancer screening: na Breast cancer screening: mamm other health maintenance examination reviewed and orders placed if needed. Encouraged maintenance of a healthy weight and active lifestyle and handout given. Annual exam handout including recommendations for good health guidelines, Calcium/vitamin D recommendations, and basic screening information given. Problem list up to date, see problem list details for any additional plan information. Follow up in one year for annual health maintenance exam or sooner if needed. Orders Orders: Coding Level of Care Code Off vis,new,prev 65+yrs Diagnoses Encounter for gynecological examination without abnormal finding Z01.419 Gynecological examination findings: abnormal findings ABSENT 04/26/18 7005 <Electronically signed by Aleksandra Lopez MD> Date Aleksandra Lopez MD Cosigner Signature: Date (if applicable) CC: CBC W/DIFF, AUTOMATED Collected: 04/13/2018 Status: F Source: [place] 1:17 PM [facility] REPOSITORY TYPE CODE TESTS RESULT OUT OF RANGE REFERENCE UNITS LAB L100.1000 4.4-11.0 K/mm3 Normal WBC 5.1 LAB L100.1200 4.2-5.4 M/mm3 Normal RBC 4.35 LAB L100.1300 12.0-15.0 g/dl Normal HGB 13.3 LAB L100.1400 37-47 % Normal HCT 40.3 LAB L100.1500 81-99 fL Normal MCV 92.6 LAB L100.1600 27.0-32.0 pg Normal MCH 30.6 LAB L100.1700 32-36 g/gl Normal MCHC 33.0 LAB L100.1810 11.6-14.6 % Normal RDW CV 12.5 LAB L100.1820 35.1-43.9 fl Normal RDW SD 41.9 LAB L100.1900 150-450 K/mm3 Normal PLT 242 LAB L100.2000 6.2-12.0 fl Normal MPV 11.1 LAB L100.2100 47-70 % Normal NEUT% 54.5 LAB L100.2200 19-41 % Normal LY% 30.7 LAB L100.2300 0-10 % Normal MONO% 9.7 LAB L100.2400 0-5 % Normal EO% 4.3 LAB L100.2500 0-1 % Normal BASO% 0.6 LAB L100.2550 0.0-0.9 % Normal IM GRAN % 0.200 Result Comment: IG% - Immature Granulocytes (promyelocytes, myelocytes and metamyelocytes) > 1% indicates that a LEFT SHIFT is Present. LAB L100.2620 2.0-7.7 X10 3/uL Normal Absolute Neut 2.8 LAB L100.2720 0.83-4.51 X10 3/ul Normal Absolute Lymph 1.58 Performed By: #### L100.0100, L101.9900 #### [facility] [address] [place], [place], [id number] ERYTHROCYTE SED RATE Collected: 04/13/2018 Status: F Source: [place] 1:17 PM [facility] REPOSITORY TYPE CODE TESTS RESULT OUT OF RANGE REFERENCE UNITS LAB L102.0000 0-30 mm/hr Normal SED RATE 16 Performed By: #### L100.0100, L101.9900 #### [facility] [address] [place], [place], [id number] CRP Collected: 04/13/2018 Status: F Source: [place] 1:17 PM [facility] REPOSITORY TYPE CODE TESTS RESULT OUT OF RANGE REFERENCE UNITS LAB L501.6710 0.0-3.0 mg/L Normal < 2.90 C-REACTIVE PROT Result Comment: C-Reactive Protein (CRP) provides useful information for the diagnosis, therapy and monitoring of inflammatory processes and associated diseases. For the evaluation of Relative Risk for Cardiovascular Disease, a High Sensitivity CRP (HSCRP) should be ordered. Performed By: #### L501.6710, L501.9520, L505.7010, L506.0400 #### [facility] [address] [place], [place], [id number] THYROID STIM HORMONE Collected: 04/13/2018 Status: F Source: [place] (TSH) 1:17 PM [facility] REPOSITORY TYPE CODE TESTS RESULT OUT OF RANGE REFERENCE UNITS LAB L501.9520 0.358-3.74 uIU/mL Normal TSH 0.73 Performed By: #### L501.6710, L501.9520, L505.7010, L506.0400 #### [facility] [address] [place], [place], [id number] RHEUMATOID FACTOR Collected: 04/13/2018 Status: F Source: [place] 1:17 PM [facility] REPOSITORY TYPE CODE TESTS RESULT OUT OF RANGE REFERENCE UNITS LAB L505.7010 <15 IU/mL Normal RHEUMATOID FAC < 10.0 Performed By: #### L501.6710, L501.9520, L505.7010, L506.0400 #### [facility] [address] [place], [place], [id number] T4 FREE DIRECT Collected: 04/13/2018 Status: F Source: [place] 1:17 PM [facility] REPOSITORY TYPE CODE TESTS RESULT OUT OF RANGE REFERENCE UNITS LAB L506.0400 0.76-1.46 ng/dL Normal T4 FREE 0.96 DIRECT Performed By: #### L501.6710, L501.9520, L505.7010, L506.0400 #### [facility] [address] [place], [place], [id number] VITAMIN D,25 HYDROXY Collected: 04/13/2018 Status: F Source: [place] 1:17 PM [facility] REPOSITORY TYPE CODE TESTS RESULT OUT OF RANGE REFERENCE UNITS LAB L506.1000 29.95-100.01 ng/mL Normal Vitamin D 51.6 25-OH Result Comment: Vitamin D 25(OH) Status Range Deficiency <20 ng/mL (50nmol/L) Insuffciency 20 - 30 ng/mL (50 - 75 nmol/L) Sufficiency 30 - 100 ng/mL (75 - 250 nmol/L) Toxicity >100 ng/mL (>250 nmol/L) Performed By: #### L506.1000 #### [facility] [address] [facility] [place], [place], [address] JACE W/ REFLEX MULT Collected: 04/13/2018 Status: F Source: [place] CONFIRM 1:17 PM [facility] REPOSITORY TYPE CODE TESTS RESULT OUT OF RANGE REFERENCE UNITS LAB L3100.5475 Negative Normal Negative JACE-DIRECT Result Comment: Performed at: [facility] [id number] Gas Plant Dispatcher: Parish Yun PhD, Phone: [phone] Performed By: #### L3100.5450 #### [facility] (refer to report for specific site) refer to report for address and phone number CCP IGG ANTIBODIES Collected: 04/13/2018 Status: F Source: [place] 1:17 PM [facility] REPOSITORY TYPE CODE TESTS RESULT OUT OF RANGE REFERENCE UNITS LAB L4600.0100 0-19 units Normal ANTI-CCP 12 [id number] Result Comment: Negative <20 Weak positive 20 - 39 Moderate positive 40 - 59 Strong positive >59 Performed at: [facility] [id number] Gas Plant Dispatcher: Jhonathan Diaz MD, Phone: [phone] Performed By: #### L4600.0100 #### [facility] (refer to report for specific site) refer to report for address and phone number AMB OFFICE-PROGRESS Observed: 03/02/2018 Status: F Source: [facility] NOTES-PROVIDER 8:28 AM [facility] REPOSITORY Patient: SHANTE MILLARD Age: 67 years Sex: Female : 1950 Associated Diagnoses: None Author: SUZANNE MCCLURE, [facility] Visit Information Visit type: Scheduled follow-up. Accompanied by: No one. Source of history: Self. History limitation: None. Chief Complaint 03/01/2018 14:50 EDT follow up from stress and echo History of Present Illness This is follow up after the cardiac work up and her stress test is negative for ischemia and echo is basically normal. No chest pain or dyspnea, I had along discussion with her and reassured her about h er echo and explained about her stress test. She feels that her dyspnea is fomr Lyrica. She does swim and rides her stationaly bike. Review of Systems Constitutional: Negative. Eye: Negative. Ear/Nose/Mouth/Throat: Negative. Respiratory: No shortness of breath, No cough, No wheezing. Cardiovascular: No chest pain, No palpitations, No peripheral edema. Gastrointestinal: No nausea, No vomiting, No heartburn, No abdominal pain. Genitourinary: Negative. Hematology/Lymphatics: Negative. Endocrine: Negative. Immunologic: Negative. Musculoskeletal: Negative. Integumentary: Negative. Psychiatric: Negative. Health Status Allergies: Allergic Reactions (All) Severity Not Documented Penicillins- No reactions were documented. Sulfa drugs- No reactions were documented., Allergies (2) Active Reaction penicillins None Documented sulfa drugs None Documented Current medications: (Selected) Documented Medications Documented Radhika 24 Hour Allergy: mg, ORAL, DAILY, 0 Refill(s) Co-Q10 200 mg oral capsule: ORAL, DAILY, 0 Refill(s) Fish Oil 1200 mg oral capsule: mg = caps, ORAL, TID, 0 Refill(s) Lyrica 75 mg oral capsule: 75 mg = 1 caps, ORAL, BID, 180 caps, 0 Refill(s) RHIANNA MAGNESIUM: 400 mg, ORAL, DAILY, 0 Refill(s) Probiotic Formula (Bacillus Coagulans): ORAL, DAILY, 0 Refill(s) Vitamin B Complex oral tablet: 1 tabs, ORAL, DAILY, 100 tabs, 0 Refill(s) Vitamin B12 1000 mcg oral tablet: 1,000 mcg = 1 tabs, ORAL, DAILY, 90 tabs, 0 Refill(s) Vitamin C 1000 mg oral tablet: 1,000 mg = 1 tabs, ORAL, DAILY, 90 tabs, 0 Refill(s) Vitamin D3 5000 intl units oral capsule: 5,000 intl_unit = 1 caps, ORAL, DAILY, with food, 100 caps, 0 Refill(s) calcium (as citrate)-vitamin D 200 mg-250 intl units oral tablet: tabs, ORAL, BID, 0 Refill(s) chromium picolinate: ORAL, DAILY, 0 Refill(s) folic acid 1 mg oral tablet: 2 mg = 2 tabs, ORAL, BID, 90 tabs, 0 Refill(s) turmeric 500 mg oral capsule: 1,500 mg = 3 caps, ORAL, DAILY, 60 caps, 0 Refill(s) Problem list: Active Problems (1) STILES (dyspnea on exertion) Histories Past Medical History: No qualifying data available Family History: Father: () Cause of : heart attack Age at unknown. Stroke.. Hypertension Mother Heart disease Arthritis Hypertension Procedure history: No active procedure history items have been selected or recorded. Social History Social & Psychosocial Habits Alcohol 02/08/2018 Risk Assessment: Denies Alcohol Use Other 02/08/2018 Name: melchor Comment: once in a while ice tea - 02/08/2018 14:14 - Opal Nelson MA Substance Abuse 02/08/2018 Risk Assessment: Denies Substance Abuse Tobacco 02/08/2018 Use: Never (less than 100 in l . Physical Examination Temperature 98.3 (14:52) Systolic Blood Pressure No result Diastolic Blood Pressure No result Pulse 80 (14:52) SpO2 No result Respiratory Rate No result VS/Measurements Documented vital signs: Blood Pressure ( Systolic 128 mmHg, Diastolic 74 mmHg ) General: Alert and oriented, No acute distress. Eye: Normal conjunctiva, Vision unchanged. HENT: Normal hearing. Neck: Supple, Non-tender, No carotid bruit, No jugular venous distention, No lymphadenopathy. Respiratory: Lungs are clear to auscultation, Breath sounds are equal, Symmetrical chest wall expansion. Cardiovascular: Normal rate, No gallop, Good pulses equal in all extremities, Normal peripheral perfusion, No edema. Bruit: None. Gastrointestinal: Soft, Non-tender, Normal bowel sounds. Genitourinary: No costovertebral angle tenderness. Musculoskeletal: No tenderness, No swelling. Integumentary: Warm, Dry. Neurologic: Alert, Normal sensory, Normal motor function, Cranial Nerves II-XII are grossly intact. Review / Management No qualifying data available Impression and Plan 1.Exertional dyspnea and negative cardiac work up 2.Advised to continue current medicaitons 3.Follow up in six months. 4.Copy to Dr Sy. [facility] OFFICE-PROGRESS Observed: 03/01/2018 Status: F Source: [facility]-PROVIDER 9:50 PM [facility] REPOSITORY Patient: SHANTE MILLARD Age: 67 years Sex: Female : 1950 Associated Diagnoses: None Author: SUZANNE MCCLURE, DERIK Chief Complaint 02/08/2018 14:07 EDT family hx of heart problems. she gets sob with left ventricular hypertrophy and mild atriel enlargment she also has swelling in her legs History of Present Illness Mrs. Pabon is a 67-year-old lady with family history of coronary artery disease is basically here for further evaluation for exertional dyspnea. She is not hypertensive not a diabetic. No prior myoca rdial infarctions stroke or peripheral cyanosis. Apparently at some point she had an echocardiogram which showed LEFT atrial enlargement and she is very much concerned about it. Her lipid profile is s ignificant for HDL is 71 LDL of 125 and cholesterol of 229. No prior myocardial infarction, stroke or peripheral vascular disease. No heart failure no COPD no thyroid problems. No chest pain no jaw pa in shoulder pain but has some exertional dyspnea. Her EKG looks normal and i would probably get an echocardiogram and a stress test Review of Systems Constitutional: Negative. Eye: Negative. Ear/Nose/Mouth/Throat: Negative. Respiratory: No shortness of breath, No cough, No wheezing. Cardiovascular: No chest pain, No palpitations, No peripheral edema. Gastrointestinal: No nausea, No vomiting, No heartburn, No abdominal pain. Genitourinary: Negative. Hematology/Lymphatics: Negative. Endocrine: Negative. Immunologic: Negative. Musculoskeletal: Negative. Integumentary: Negative. Psychiatric: Negative. Health Status Allergies: Allergic Reactions (All) Severity Not Documented Penicillins- No reactions were documented. Sulfa drugs- No reactions were documented., Allergies (2) Active Reaction penicillins None Documented sulfa drugs None Documented Current medications: (Selected) Documented Medications Documented Radhika 24 Hour Allergy: mg, ORAL, DAILY, 0 Refill(s) Co-Q10 200 mg oral capsule: ORAL, DAILY, 0 Refill(s) Fish Oil 1200 mg oral capsule: mg = caps, ORAL, TID, 0 Refill(s) INSPIR-ACTION: 0 Refill(s) Lyrica 75 mg oral capsule: 75 mg = 1 caps, ORAL, BID, 180 caps, 0 Refill(s) RHIANNA MAGNESIUM: 400 mg, ORAL, DAILY, 0 Refill(s) PHYSICA: 0 Refill(s) Probiotic Formula (Bacillus Coagulans): ORAL, DAILY, 0 Refill(s) Vitamin B Complex oral tablet: 1 tabs, ORAL, DAILY, 100 tabs, 0 Refill(s) Vitamin B12 1000 mcg oral tablet: 1,000 mcg = 1 tabs, ORAL, DAILY, 90 tabs, 0 Refill(s) Vitamin C 1000 mg oral tablet: 1,000 mg = 1 tabs, ORAL, DAILY, 90 tabs, 0 Refill(s) Vitamin D3 5000 intl units oral capsule: 5,000 intl_unit = 1 caps, ORAL, DAILY, with food, 100 caps, 0 Refill(s) calcium (as citrate)-vitamin D 200 mg-250 intl units oral tablet: tabs, ORAL, BID, 0 Refill(s) chromium picolinate: ORAL, DAILY, 0 Refill(s) folic acid 1 mg oral tablet: 2 mg = 2 tabs, ORAL, BID, 90 tabs, 0 Refill(s) turmeric 500 mg oral capsule: 1,500 mg = 3 caps, ORAL, DAILY, 60 caps, 0 Refill(s) valACYclovir 500 mg oral tablet: mg = tabs, ORAL, DAILY, 0 Refill(s) Problem list: No qualifying data available Histories Past Medical History: No qualifying data available Family History: Father: () Cause of : heart attack Age at unknown. Stroke.. Hypertension Mother Heart disease Arthritis Hypertension Procedure history: No active procedure history items have been selected or recorded. Social History Social & Psychosocial Habits Alcohol 02/08/2018 Risk Assessment: Denies Alcohol Use Other 02/08/2018 Name: melchor Comment: once in a while ice tea - 02/08/2018 14:14 - Leslie [facility] Substance Abuse 02/08/2018 Risk Assessment: Denies Substance Abuse Tobacco 02/08/2018 Use: Never (less than 100 in l . Physical Examination No qualifying data available. VS/Measurements Documented vital signs: Blood Pressure ( Systolic 124 mmHg, Diastolic 76 mmHg ) General: Alert and oriented, No acute distress. Eye: Normal conjunctiva, Vision unchanged. HENT: Normal hearing. Neck: Supple, Non-tender, No carotid bruit, No jugular venous distention, No lymphadenopathy. Respiratory: Lungs are clear to auscultation, Breath sounds are equal, Symmetrical chest wall expansion. Cardiovascular: Normal rate, No gallop, Good pulses equal in all extremities, Normal peripheral perfusion, No edema. Bruit: None. Gastrointestinal: Soft, Non-tender, Normal bowel sounds. Genitourinary: No costovertebral angle tenderness. Musculoskeletal: No tenderness, No swelling. Integumentary: Warm, Dry. Neurologic: Alert, Normal sensory, Normal motor function, Cranial Nerves II-XII are grossly intact. Review / Management No qualifying data available Impression and Plan 1.Exertional dyspnea and abnormal echo ( inclding LAE, and LVH) 2.Low risk for CAD 3.Would plan for stress test and echo 4.Continue current medications 5.Follow up after the initial cardiac work up [facility]B OFFICE-PROGRESS Observed: 02/22/2018 Status: F Source: [facility] NOTES-PROVIDER 9:37 PM [facility] REPOSITORY Patient: SHANTE MILLARD Age: 67 years Sex: Female : 1950 Associated Diagnoses: None Author: SUZANNE MCCLURE, DERIK Exam Indication: Dyspnea Date of Exam: 02/22/2018 Referring Physician: Edy Kay Clinical History: 67 yr old lady with family history of CAD is here with new onset exertional dyspnea Procedure: The supervising community advocate, Dr Javy Savage, reviewed the patient's baseline ECG prior to starting the stress test. The patient performed treadmill exercise using the standard Jose Angel protocol fo r 6.30 minutes, achieving an estimated workload of _ METS. The test was terminated due to dyspnea. The patient was given the imaging tracer at peak exercise followed by a 5 mL saline flush. The patie nt continued to exercise for one minute after injection. The patient's heart rate and blood pressure response was adequate. The resting ECG demonstrated NSR and post stress ecg shows no ST changes and no ectopy. The patient was given 9.9 mCi of Tc-99m sestamibi IV for evaluation of myocardial function and perfusion rest. Approximately 30 minutes after injection, the patient underwent SPECT imaging. The stress images were acquired approximately 30 minutes after injection of 33.0 mCi of Tc- 99m sestamibi IV. The stress SPECT study was also gated to evaluate regional wall motion and calculate the left ventricu lar ejection fraction. The data was reconstructed in short, horizontal long and vertical long axis views, and tomographic slices were generated. Findings: The overall technical quality of the images is good. Stress images demonstrated unform uptake of activity all over the myocardium The rest images demonstrated similar distributio of activity The stress gated images demonstrated normal size and function of the left ventricle and the estimated ejection fraction is 65% with no wall motion abnormalities Impression 1. Normal myocardial perfusion study 2. Normal size and function of the left ventricle 3. No wall motion abnormalities and EF is 65% Copy of Final Report Sent to: [] Date of Interpretation: 02/22/2018 Date of Final Report: 02/22/2018 STRESS TEST REPORT Observed: 02/22/2018 Status: F Source: [facility] 12:45 PM [facility] REPOSITORY Patient: SHANTE MILLARD [facility]: [id number] Age: 67 years Sex: Female : 1950 Associated Diagnoses: None Author: NOHEMY SAVAGE MD Date of Exam: 02/22/2018 Referring Physician: Dr. Estrella Kay Reason for Stress Test: Shortness of breath Findings: 1. The baseline ECG revealed normal sinus rhythm with resting heart rate of 64 beats per minute without any ST segment abnormalities. 2. The resting blood pressure was 160/90 mmHg with normal response to the exercise. 3. The total excised time was 6 minutes and 30 seconds with heart rate response of 90 percent. 4. This test was terminated because of fatigue and shortness of breath. 5. The Cardiolite injected 1 minute prior to the termination of the test. 6. The 12-lead ECG taken during the test did not reveal any ST segment abnormalities Conclusion: 1. No ST segment abnormalities seen during the stress test. 2. The SPECT images to follow separately. Electronically signed by Dr. Javy Savage Date of Interpretation: 02/22/2018 Date of Final Report: 02/22/2018 ORTHOPEDIC VISIT Observed: 10/08/2017 Status: F Source: [facility] REPORT 10:25 AM [facility] [address] [place] [address] OFFICE VISIT Date of Service: 10/07/17 MR#: [id number] Acct: [id number] Name: SHANTE MILLARD Rep #: [id number] : 1950 Provider: Samantha Chinchilla DO Age/Sex: 67/F Location: [facility] [place] Status: Signed Intake Vital Signs10/07/17 Height 5 ft 2 in 10/07/17 Weight: 160 lb 10/07/17 Body Mass Index (BMI) 29.2 Intake Visit Reasons: LEFT SHOULDER Is patient in pain?: No Allergies Penicillins [PCN] Allergy (Verified 10/07/17 13:55) Rash Sulfa (Sulfonamide Antibiotics) Allergy (Verified 10/07/17 13:55) Hives Medications B-complex with vitamin C capsule 1 cap PO QDAY 10/07/17 [History Confirmed 10/07/17] Bifidobacterium infantis 1.5 billion cell capsule 4 mg PO QDAY 10/07/17 [History Confirmed 10/07/17] biotin 2,500 mcg capsule 2,500 mcg PO ONCE 10/07/17 [History Confirmed 10/07/17] cholecalciferol (vitamin D3) 5,000 unit capsule 5,000 unit PO ONCE 10/07/17 [History Confirmed 10/07/17] coenzyme Q10 75 mg capsule 200 mg PO ONCE cap 10/07/17 [History Confirmed 10/07/17] folic acid 1 mg tablet 2 mg PO .2 times a day tab 10/07/17 [History Confirmed 10/07/17] mecobalamin (vitamin B12) 1,000 mcg disintegrating tablet,sublingual 1,000 mcg SUBLINGUAL QDAY 10/07/17 [History Confirmed 10/07/17] multivitamin tablet 1 tab PO QAM 10/07/17 [History Confirmed 10/07/17] omega-3 fatty acids 1,000 mg capsule 1,000 mg PO QDAY 10/07/17 [History Confirmed 10/07/17] pregabalin 75 mg capsule 75 mg PO BID 10/07/17 [History Confirmed 10/07/17] PFSH Medical History MTHFR mutation (Chronic) Thoracic back pain (Chronic) Surgical History History of hysterectomy (Inactive) S/P carpal tunnel release (Inactive) S/P tonsillectomy (Inactive) Status post right knee replacement (Inactive) fibroid tumor removed (Inactive) s/p low back surgery (Inactive) Family History Father Throat cancer Diabetes CVA (cerebral vascular accident) Hypertension Mother Cancer Heart disease Hypertension Rheumatoid arthritis Social History Smoking Status: Never smoker HPI LEFT SHOULDER: Details: SHANTE MILLARD is a 67 year old F here today for left shoulder. She complains of intermittent anterior shoulder pain x1 month. She denies injury but the only thing she can recall is reaching her arm out at the bank in the drive thru and reaching into her mailbox. She denies radiation of pain. No tingling/numbness. She denies clicking, popping or catching. She saw Dr. Sy who prescribed anti-inflammatory, x-ray CT scan. She does feel her shoulder is feeling better and her ROM has improved. At this point she is not taking anything for pain. ROS Const Reports system reviewed and no additional complaints, except as docu Eyes Reports system reviewed and no additional complaints, except as docu ENT Reports system reviewed and no additional complaints, except as docu Card Reports system reviewed and no additional complaints, except as docu Resp Reports system reviewed and no additional complaints, except as docu GI Reports system reviewed and no additional complaints, except as docu Reports system reviewed and no additional complaints, except as docu Musc Reports joint pain Skin/Breast Reports system reviewed and no additional complaints, except as docu Neuro Yes system reviewed and no additional complaints, except as docu Psych Reports system reviewed and no additional complaints, except as docu Endo Reports system reviewed and no additional complaints, except as docu Eron/Lymph Reports system reviewed and no additional complaints, except as docu Aller/Immun Reports system reviewed and no additional complaints, except as docu Ortho Exam Left Shoulder Skin/Wound: Yes CDI Contralateral Normal: Yes Testing: Yes AROM-Forward Elevation 0-180 (100), Yes TTP Biceps, Yes Neer's, Yes Hawkin's, Yes PROM-Forward Elevation 0-180 (170), Yes empty can SHOULDER: abd 45 Office Procedures Ortho Injections Injections Yes Subacromial Injection Left Details: Obtained consent for injection. Under sterile conditions, injected the patients left subacromial injection with a 10cc cocktail of 8cc bupivacaine and 2cc kenalog. The patient tolerated the injection well without any noted complication. Patient should call our office if redness develops, pain worsens or if they have any concerns. Office Meds Kenalog Performing Provider: Samantha Chicnhilla DO Administered by: Samantha Chinchilla DO on 10/07/17 14:52 Dose Route Admin Location Lot Number Expiration DateNDC Large Sheetfed Press Operator 2 mg Intra-Articularleft [id number] 10/14/18 4639-1693-65 DEONTICS Assessment AND Plan 1. Rotator cuff syndrome of left shoulder M75.102 Plan Personally reviewed the patient's medical history, medications, surgeries and recent exams if available. X-rays were reviewed. There is no obvious fracture, dislocation, or lucency noted but she does have calcific tendonitis. Educated the patient on the anatomy of the shoulder and etiology of her pain, on exam she has left rtc weakness, painful ER and biceps tendonitis. Treatment options are do nothing, steroid injection, PT and HEP. Gave injection today and instructed to work on rom. Monitor for flushing as she has had in the past. Follow up in 3-4 months or sooner if pain, swelling, numbness or associated symptoms, or concerns develop. All questions answered. Patient in agreement of plan. 2. Biceps tendonitis on left M75.22 3. Calcific tendonitis of left shoulder M75.32 Orders Orders: Medications Discontinued: Kenalog (triamcinolone acetonide) Disc2 mg (0.2 mL) Intra- Articular ONCE NS Yosef Whatley ontinued Reason: Office Medication has b een Documented as given Plan Detail Other Medications Discontinued: hydrocodone-acetaminophen 5-325 mg Disc1 - 2 tabs PO Q4H PRN PRN Pain Keke Kaiser ontinued Reason: Pt no longer taking Coding Level of Care Code Off vis,new,level 3 Diagnoses Rotator cuff syndrome of left shoulder M75.102 Biceps tendonitis on left M75.22 Calcific tendonitis of left shoulder M75.32 Additional Codes passenger booking clerk.sub ([id number]) 10/08/17 1025 <Electronically signed by Samantha Chinchilla DO> Date Samantha Chinchilla DO Cosigner Signature: Date (if applicable) CC: Hugo Sy EXTREMITY UPPER Observed: 09/21/2017 Status: F Source: [facility] WITHOUT CONTRA 5:42 PM [facility] REPOSITORY [facility] Imaging Services [address] [place] [address] Extremity Upper without Contra MR#: [id number] Acct: [id number] Name: MARLENYJACQUESHANTE M Rep #: [id number] : 1950 F 67 From: Ho Lee MD PCP: Hugo Sy Status: REG CLI Study: Extremity Upper without Contra Date of Exam: 09/21/17 Exam# [id number] Ordering Dr: Hugo Sy MD STUDY: CT LEFT SHOULDER REASON FOR EXAM: Female, 67 years old. History of possible intra-articular loose bodies. RADIATION DOSAGE (If Supplied By Facility): CTDIvol = ( 30.82 ) mGy, DLP = ( 448.59 ) mGycm TECHNIQUE: The patient was scanned in a multi detector CT scanner. High resolution transaxial imaging was performed without the administration of intravenous contrast material. Sagittal and coronal images were reconstructed. Individualized dose optimization techniques were used for this CT. COMPARISON: Correlation is made with plain films of the left shoulder of 09/13/2017. FINDINGS: Normal glenohumeral articulation. There is a well-defined calcific density adjacent to the superior posterior aspect of the glenoid fossa which may be due to previous trauma or less likely nonfused epiphyses. Intra-articular loose body is less likely. Normal glenoid rim, neck and visualized scapula. Normal humeral head, neck and tuberosities. Normal coracoid process. Normal visualized lateral clavicle. There is mild osteoarthritis with articular joint space narrowing. There is a Type I morphology (flat undersurface), with a neutral orientation. There are calcifications lateral and superior to the humeral neck consistent with calcific tendinitis. CT/Extremity Upper without Contra IMPRESSION: Calcific tendinitis of the left shoulder. Small well-defined calcification adjacent to the superior glenoid rim as described above. Otherwise no evidence of intra-articular loose bodies. Mild degenerative changes of the acromioclavicular joint. Electronically Signed: Ho Lee MD at 2:05 EST Tel , Service support , CC: Hugo Sy Christmas Tree Farmer: Signed SHOULDER MIN 2 VIEWS Observed: 09/13/2017 Status: F Source: [facility] 3:53 PM [facility] REPOSITORY [facility] Imaging Services [address] [place] [address] Shoulder min 2 Views MR#: [id number] Acct: [id number] Name: SHANTE MILLARD Rep #: [id number] : 1950 F 67 From: Erik Clark DO PCP: Hugo Sy Status: REG CLI Study: Shoulder min 2 Views Date of Exam: 09/13/17 Exam# [id number] Ordering Dr: Hugo Sy MD STUDY: X-RAY - LEFT SHOULDER REASON FOR EXAM: Female, 67 years old. Painful left shoulder without injury TECHNIQUE: 4 view(s) of the shoulder. COMPARISON: None. FINDINGS: There is mild degenerative arthrosis of the glenohumeral articulation. There is degenerative arthrosis of the acromioclavicular joint without inferior osseous spur formation. Normal acromion. There are 2 ossific densities in the region around the humeral head, largest measuring 1.5 cm. Unsure if this represents joint loose bodies. Normal humeral head and visualized proximal humerus. The soft tissue structures are unremarkable. Normal visualized pulmonary apex. RAD/Shoulder min 2 Views IMPRESSION: Degenerative changes with possible joint loose bodies. Consider CT versus MRI to further evaluate Electronically Signed: Erik Clark DO at 16:07 EST Tel , Service support , CC: Hugo Sy Christmas Tree Farmer: Signed ALLERGIES ALLERGIES DATE TYPE / NAME / CODE REACTION SEVERITY SOURCE CODE 07/28/2018 Drug Penicillins/[id number] Rash Unknown [place] Allergy/41 6(RXNORM) [facility] [id number]([facility]) Repository 07/28/2018 Drug Sulfa (Sulfonamide Hives Unknown [place] Allergy/41 Antibiotics)/[id number] Formerly [facility] [id number]( 91(RXNORM) [facility]) Repository 11/07/2014 DRUG DIPHENHYDRAMINE GI UPSET [facility] INGREDI/41 [address] [place] 6696115([facility] OMED CT) 06/04/2009 Drug PENICILLINS [facility] Class/4195 [place] [address]([facility] Repository ED CT) 06/04/2009 Drug SULFA (SULFONAMIDE [facility] Class/4195 ANTIBIOTICS) [place] [address]([facility] Repository ED CT) ENCOUNTERS ENCOUNTERS ADMIT/DISCHARGE ACCOUNT NUMBER ADMITTING ENCOUNTER LOCATION SOURCE CLASS 07/28/2018/07/29/20 [id number] Ambulatory [address] [place] Repository 07/28/2018/07/28/20 [id number] Ambulatory BMSBuilding: [place] 18 BMS.[facility]W [facility] Repository 07/13/2018 [id number] Ambulatory [facility] ding:PAVLAB Repository 07/13/2018/07/13/20 [id number] Ambulatory BMSBuilding: [place] 18 BMS.[facility] [place] 06/16/2018 [id number] Ambulatory [facility] ding:PSN Repository 06/16/2018 [id number] Ambulatory BMSBuilding: [place] [facility] Repository 06/10/2018 [id number] Ambulatory BMSBuilding: [facility] Repository 06/09/2018 [id number] Ambulatory [facility] ding:PSN Repository 06/01/2018/06/01/20 [id number] Ambulatory BMSBuilding: [place] 18 BMS.[facility] [place] 05/25/2018 [id number] Ambulatory [facility] ding:OPBI Repository 05/05/2018/05/06/20 [id number] Ambulatory [address] Repository 04/26/2018/04/26/20 [id number] Ambulatory BMSBuilding: [place] 18 BMS.[facility] Repository 04/13/2018 [id number] Ambulatory [facility] ding:BFHLAB Repository 03/08/2018 [id number] Ambulatory BMSBuilding: [place] BMS.[facility] Repository 03/01/2018 [id number] [facility] [place] Repository 03/01/2018/03/01/20 [id number] Ambulatory [facility] 18 ing:[facility] General oom: [address] Repository 02/22/2018/02/23/20 [id number] Ambulatory [facility] [place] 18 ing:[facility] Repository 02/22/2018/02/23/20 [id number] Ambulatory [facility] 18 ing:[facility] Repository 02/08/2018/02/09/20 [id number] Ambulatory [facility] 18 ing:[facility] General oom: [address] Repository 10/07/2017/10/07/19 [id number] Ambulatory BMSBuilding: [place] 18 BMS.SMO [facility] Repository 09/21/2017 [id number] Ambulatory [place] [facility] ding:CT Repository 09/13/2017 [id number] [facility] Rep[facility] PAYERS PAYERS ENCOUNTER GUARANTOR PAYER SUBSCRIBER SOURCE 07/28/2018 SHANTE Darling Primary SHANTE Lewis [id number] ALICIA Insurance:MEDICARE CROWDOB: [place] PART A [facility] [id number] Hospital [address]Xcs: [phone]) Number: Repository [phone] () [id number] Date:2018-07-13 07/28/2018 Secondary SHANTE Lewis Insurance:AETNA SR CROWDOB: [facility] SUPPLEMENT [facility] [id number] Hospital Number: Repository [id number] Date:[id number] SENIOR SUPPLEMENT [id number] [place] [id number]: 07/28/2018 Tertiary NOT GIVENUNK [place] Insurance:SELF PAY [facility] Number: Effective Repository Date:2018-07-20 07/13/2018 SHANTE Darling Primary SHANTE Lewis [id number] ALIC[place] Insurance:MEDICARE CROWDOB: [place] PART A [facility] [id number] Hospital [address]Kys: (330) Number: Repository [phone] () [id number] Date:2018-07-13 07/13/2018 Secondary SHANTE Lewis Insurance:AETNA SR CROWDOB: [facility] SUPPLEMENT [facility] [id number] Hospital Number: Repository [id number] Date:[id number] SENIOR SUPPLEMENT [id number] [place] [id number]: 07/13/2018 Tertiary NOT GIVENUNK [place] Insurance:SELF PAY [facility] Number: Effective Repository Date:2018-07-13 07/13/2018 SHANTE Darling Primary SHANTE Lewis [id number] ALICIA Insurance:MEDICARE CROWDOB: [place] PART A [facility] [id number] Hospital [address]Vpd: [phone]) Number: Repository [phone] () [id number] Date:2018-06-01 07/13/2018 Secondary SHANTE M [place] Insurance:AETNA SR CROWDOB: Community SUPPLEMENT [facility] [id number] Hospital Number: Repository [id number] Date:[id number] SENIOR SUPPLEMENT [address] [place] [address]SP: 07/13/2018 Tertiary NOT GIVENUNK [place] Insurance:SELF PAY [facility] Number: Effective Repository Date:2018-07-05 06/16/2018 SHANTE M Primary SHANTE M Debbie [id number] [place] Insurance:MEDICARE CROWDOB: [place] PART A [facility] [id number] Hospital [address]Dzh: (330) Number: Repository [phone] () [id number] Date:2018-06-01 06/16/2018 Secondary SHANTE M Debbie Insurance:AETNA SR CROWDOB: Community SUPPLEMENT [facility] [id number] Hospital Number: Repository [id number] Date:6406-62-09MAXPZ SENIOR SUPPLEMENT [address] [place] [address]JJ: 06/16/2018 Tertiary NOT GIVENUNK [place] Insurance:SELF PAY [facility] Hospital Number: Effective Repository Date:2018-06-01 06/16/2018 SHANTE M Primary SHANTE M [place] [id number] ALIC[place] Insurance:MEDICARE CROWDOB: [place] PART [place] [facility] [id number] Hospital [address]Mii: (330) Number: Repository [phone] () [id number] Date:2018-06-01 06/16/2018 Secondary SHANTE M Debbie Insurance:AETNA SR CROWDOB: Community SUPPLEMENT [facility] [id number] Hospital Number: Repository [id number] Date:[id number] SENIOR SUPPLEMENT [address] [place] [id number]: 06/16/2018 Tertiary NOT GIVENUNK [place] Insurance:SELF PAY [facility] Hospital Number: Effective Repository Date:2018-06-16 06/10/2018 SHANTE Darling Primary SHANTE Darling Debbie [id number] ALIC[place] Insurance:MEDICARE CROWDOB: Community [place] PART [place] [facility] [id number] Hospital [address]Ksd: (330) Number: Repository [phone] () [id number] Date:2018-06-01 06/10/2018 Secondary SHANTE M [place] Insurance:AETNA SR CROWDOB: [id number] Hospital Number: Repository [id number] Date:7522-36-85VDFRM SENIOR SUPPLEMENT [address] [place] [address]YD: 06/10/2018 Tertiary NOT GIVENUNK [place] Insurance:SELF PAY [facility] Hospital Number: Effective Repository Date:2018-06-10 06/09/2018 SHANTE Darling Primary SHANTE Darling [place] [id number] [place] Insurance:MEDICARE CROWDOB: [place] PART [place] [facility] [id number] Hospital [id number]: (330) Number: Repository [phone] () [id number] Date:2018-06-01 06/09/2018 Secondary SHANTE Darling Debbie Insurance:AETNA SR CROWDOB: Community SUPPLEMENT [facility] [id number] Hospital Number: Repository [id number] Date:[id number] SENIOR SUPPLEMENT [id number] [place] [address]HQ: 06/09/2018 Tertiary NOT GIVENUNK [place] Insurance:SELF PAY [facility] Hospital Number: Effective Repository Date:2018-06-01 06/01/2018 SHANTE Darlnig Primary SHANTE Darling [place] [id number] [place] Insurance:MEDICARE CROWDOB: [place] PART [place] [facility] [id number] Hospital [address]Wpf: (330) Number: Repository [phone] () [id number] Date:2018-03-15 06/01/2018 Secondary SHANTE M [place] Insurance:AETNA SR CROWDOB: Community SUPPLEMENT INSP[facility]icy [id number] Hospital Number: Repository [id number] Date:6486-47-34RWYSD SENIOR SUPPLEMENT [address] [place] [address]OC: 06/01/2018 Tertiary NOT GIVENUNK [place] Insurance:SELF PAY [facility] Hospital Number: Effective Repository Date:2018-05-25 05/25/2018 SHANTE M Primary SHANTE M [place] [id number] [place] Insurance:MEDICARE CROWDOB: [place] [facility] [id number] Hospital [address]Phg: (330) Number: Repository [phone] () [id number] Date:2018-04-27 05/25/2018 Secondary SHANTE M Debbie Insurance:AETNA SR CROWDOB: [facility] [id number] Hospital Number: Repository [id number] Date:3446-88-31DGXCX SENIOR SUPPLEMENT [address] [place] [address]IP: 05/25/2018 Tertiary NOT GIVENUNK [place] Insurance:SELF PAY [facility] Hospital Number: Effective Repository Date:2018-04-27 04/26/2018 SHANTE M Primary SHANTE M [place] [id number] [place] Insurance:MEDICARE CROWDOB: [place] [facility] [id number] Hospital [address]Yde: (330) Number: Repository [phone] () [id number] Date:2018-02-03 04/26/2018 Secondary SHANTE M [place] Insurance:AETNA SR CROWDOB: [facility] [id number] Hospital Number: Repository [id number] Date:4117-41-14RSQTR SENIOR SUPPLEMENT [address] [place] [phone]: 04/26/2018 Tertiary NOT GIVENUNK [place] Insurance:SELF PAY [facility] Hospital Number: Effective Repository Date:2018-04-26 04/13/2018 SHANTE M Primary SHANTE M Debbie [id number] [place] Insurance:MEDICARE CROWDOB: [place] [facility] [id number] Hospital [address]Jma: (330) Number: Repository [phone] () [id number] Date:2018-04-13 04/13/2018 Secondary SHANTE M Debbie Insurance:AETNA SR CROWDOB: Community SUPPLEMENT [facility] [id number] Hospital Number: Repository [id number] Date:8676-75-75HYLIC SENIOR SUPPLEMENT [address] [place] [address]HZ: 04/13/2018 Tertiary NOT GIVENUNK [place] Insurance:SELF PAY [facility] Hospital Number: Effective Repository Date:2018-04-13 03/08/2018 SHANTE M Primary SHANTE Darling Debbie [id number] [place] Insurance:MEDICARE CROWDOB: [place] [facility] [id number] Hospital 260[address]Mqa: (330) Number: Repository [phone] () [id number] Date:2018-03-08 03/08/2018 Secondary SHANTE M Debbie Insurance:AETNA SR CROWDOB: Community SUPPLEMENT [facility] [id number] Hospital Number: Repository [id number] Date:5013-16-13ZOEWT SENIOR SUPPLEMENT [address] [address]VM: 03/08/2018 Tertiary NOT GIVENUNK [place] Insurance:SELF PAY [facility] Hospital Number: Effective Repository Date:2018-03-08 10/07/2017 Shante M Primary Shante M Debbie [id number] [place] Insurance:MEDICARE CrowDOB: [place] PART [place] [facility] [id number] Hospital [address]Urv: (330) Number: Repository [phone] () [id number] Date:2017-10-01 10/07/2017 Secondary Shante M De[place] Insurance:AETNA SR CrowDOB: Community SUPPLEMENT [facility] [id number] Hospital Number: Repository [id number] Date:9188-78-39LPYPM SENIOR SUPPLEMENT [address] [address], [place] [address]KT: 10/07/2017 Tertiary NOT GIVENUNK [place] Insurance:SELF PAY [facility] Number: Effective Repository Date:2017-10-01 09/21/2017 Shante Darling Primary Shante M Debbie [id number] [place] Insurance:MEDICARE CrowDOB: [place] [facility] [id number] Hospital [address]Laj: (330) Number: Repository [phone] () [id number] Date:2017-09-14 09/21/2017 Secondary Shante M [place] Insurance:AETNA SR CrowDOB: Community SUPPLEMENT [facility] [id number] Hospital Number: Repository [id number] Date:1263-53-30CPNIT SENIOR SUPPLEMENT [address] [address]UF[address], [place] [address]LB: 09/21/2017 Tertiary NOT GIVENUNK [place] Insurance:SELF PAY [facility] Number: Effective Repository Date:2017-09-14 09/13/2017 Shante M Primary Shante M [place] [id number] [place] Insurance:MEDICARE CrowDOB: [place] [facility] [id number] Hospital [address]Ebq: (330) Number: Repository [phone] () [id number] Date:2017-09-13 09/13/2017 Secondary Shante M Debbie Insurance:AETNA SR CrowDOB: [facility] [id number] Hospital Number: Repository [id number] Date:0068-84-79TLZQP SENIOR SUPPLEMENT [address] [address]JTKYLSVJR, [place] [address]OM: 09/13/2017 Tertiary NOT GIVENUNK [place] Insurance:SELF PAY [facility] Number: Effective Repository Date:2017-09-13
== END ==
PROVIDERS: Family Provider Family Medicine; PCP Family Medicine; Referring Provider Nurse Practitioner Acute Care; Visit Provider Nurse Practitioner Acute Care
DX: J45.909 Unspecified asthma, uncomplicated (principal); E66.9 Obesity, unspecified
CPT/HCPCS: 36415; 82785; 85025; 86003; 86606

== ENCOUNTER → 2018-08-03 11:21 | Outpatient (CLI) | payer MEDICARE, OTHER, SELFPAY ==
[2018-07-28 07:10] VITALS: BMI 30.9
--- NOTE | 2018-08-03 11:31 | RAD_ITS ---
STUDY: X-RAY - RIGHT HIP REASON FOR EXAM: Female, 68 years old. Right hip pain TECHNIQUE: 2 views of the hip. COMPARISON: None. FINDINGS: There are osteoarthritic changes of the femoral head with marginal osteophyte formation. Normal acetabulum. There is mild articular joint space narrowing. Normal visualized superior and inferior pubic rami and ischial tuberosities. Lower lumbar spine postsurgical changes. Tubal ligation clips. RAD/HIP, UNI W/ Pelvis 2-3 Views IMPRESSION: Degenerative change of the right hip. Electronically Signed: Erik Clark DO at 11:30 EST Tel , Service support ,
--- OUTSIDE RECORDS SUMMARY | 2018-11-04 15:29 | XMS RPT_ITS ---
:1950 Author Organization [place] Support Name Relationship Address Phone EARLENE DELEON Unavailable Unavailable + EARLENE DELEON Unavailable Unavailable + INNOVATIONS HAIR NAIL SALON Unavailable [address] [facility] + [place] [address] MCILVAINE, EARLENE Unavailable [address] + [place] [address] CHARI, SHOBHA Unavailable [address] + [place] [address] [employer]ON Unavailable 7 [facility] + [place] [address] MCILVAINE, EARLENE Unavailable [address] + [place] [address] CHARI, SHOBHA Unavailable [address] + [place] [address] [employer] NAIL SALON Unavailable 7 [facility] + [place] [address] MCILVAINE, EARLENE Unavailable Unavailable + CHARI, SHOBHA Unavailable Unavailable + [employer]ON Unavailable 7 [facility] + [place] [address] MCILVAINE, EARLENE Unavailable . + [place] [address] CHARI, SHOBHA Unavailable . + [place] [address] [employer]ON Unavailable 7 [facility] + [place] [address] MCILVAINE, EARLENE Unavailable Unavailable + [place] [address] CHARI, SHOBHA Unavailable Unavailable + [place] [address] [employer]ON Unavailable 7 [facility] + [place] [address] MCILVAINE, EARLENE Unavailable Unavailable + CHARI, SHOBHA Unavailable Unavailable + [employer]ON Unavailable 7 [facility] + [facility] [place] [address] MCILVAINE, EARLENE Unavailable Unavailable + CHARI, SHOBHA Unavailable Unavailable + [employer]ON Unavailable 7 [facility] + [place] [address] MCILVAINE, EARLENE Unavailable Unavailable + [place] [address] CHARI, SHOBHA Unavailable Unavailable + [place] [address] [employer]ON Unavailable 7 [facility] + [place] [address] CHARI, SHOBHA Unavailable . + [place] [address] [employer]ON Unavailable 7 [facility] + [place] [address] CHARI, SHOBHA Unavailable Unavailable + [employer]ON Unavailable 7 [facility] + [place] [address] CHARI, SHOBHA Unavailable . + [place] [address] [employer]ON Unavailable 7 [facility] + [facility] [place] [address] MCILVAINE, EARLENE Unavailable Unavailable + CHARI, SHOBHA Unavailable Unavailable + [employer] Unavailable Unavailable + [place] [address] CHARI, SHOBHA Unavailable . + [place] [address] MAIMVAINE, EARLENE Unavailable Unavailable + MAIMVAINE, EARLENE Unavailable Unavailable + MAIMVAINE, EARLENE Unavailable Unavailable + MAIMVAINE, EARLENE Unavailable Unavailable + MCINICOLAS EARLENE Unavailable [address] + [place] [address] R Unavailable Unavailable Unavailable MCILVAINE, EARLENE Unavailable [address] + [place] [address] R Unavailable Unavailable Unavailable MCILVAINE, EARLENE Unavailable [address] + [place] [address] R Unavailable Unavailable Unavailable Care Team Providers Name Role Phone RICO PUGA (ROTOFORMER BACKTENDER) Attending Unavailable MARIANNA NEWELL E Referring Unavailable RICO PUGA (ROTOFORMER BACKTENDER) Attending Unavailable IZZY NEWELLLAS E Referring Unavailable Peter Eddy D.O. Attending Unavailable Yossi, Hugo Referring Unavailable Prebish, Shahla HUMAN SERVICES CARE SPECIALIST-C Attending Unavailable Prebish, Shahla HUMAN SERVICES CARE SPECIALIST-C Referring Unavailable Yossi, Hugo Primary Care Unavailable Yossi, Hugo Attending Unavailable Yossi, Hugo Primary Care Unavailable Yossi, Hugo Attending Unavailable Yossi, Hugo Referring Unavailable Yossi, Hugo Primary Care Unavailable Samantha Chinchilla Attending Unavailable Yossi, Hugo Referring Unavailable Yossi, Hugo Primary Care Unavailable Keke Kaiser Attending Unavailable Yossi, Hugo Attending Unavailable Yossi, Hugo Primary Care Unavailable Aleksandra Lopez Attending Unavailable Yossi, Hugo Referring Unavailable Yossi, Hugo Primary Care Unavailable Aleksandra Lopez Attending Unavailable Yossi, Hugo Primary Care Unavailable Sybil Hoyos.Jayden. Attending Unavailable Yossi, Hugo Referring Unavailable Sybil Hoyos.O. Attending Unavailable Sybil Hoyos.O. Referring Unavailable Yossi, Hugo Primary Care Unavailable Sybil Hoyos.O. Attending Unavailable Sybil Hoyos.O. Referring Unavailable Yossi, Hugo Primary Care Unavailable Peter Eddy D.O. Attending Unavailable Sybil Hoyos.O. Referring Unavailable Jose Angel Heart Attending Unavailable Peter Eddy D.O. Referring Unavailable Macy Eller Attending Unavailable Yossi, Hugo Referring Unavailable Macy Eller Attending Unavailable Macy Eller Referring Unavailable Yossi, Hugo Primary Care Unavailable SUZANNE MCCLURE, DERIK Attending Unavailable SUZANNE MCCLURE, DERIK Attending Unavailable SUZANNE MCCLURE, DERIK Attending Unavailable SUZANNE MCCLURE, DERIK Attending Unavailable SUZANNE MCCLURE, DERIK Attending Unavailable SUZANNE MCCLURE, DERIK Attending Unavailable PROBLEMS PROBLEMS DATE TYPE CONDITION / CODE ATTENDING STATUS SOURCE 08/03/2018 Unknown M25.551 - Pain in Prebish, Shahla Active [facility] right hip / HUMAN SERVICES CARE SPECIALIST-C Community M25.551(ICD-10) Hospital Repository 07/13/2018 Unknown J45.909 - Unspecified Eller, Active [place] asthma, uncomplicated [facility] / J45.909(ICD-10) Hospital Repository 07/13/2018 Unknown E66.9 - Obesity, Eller, Active Debbie unspecified / [facility] E66.9(ICD-10) Hospital Repository 07/13/2018 Unknown R05 - Cough / Eller, Active [place] R05(ICD-10) [facility] Hospital Repository 07/18/2018 Unknown R06.02 - Shortness of Peter Surjit, Active [facility] breath / D.O. 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 / Community M06.4(ICD-10) Hospital Repository 10/07/2017 Unknown M75.32 - Calcific Chicorelli, Active [facility]bbie tendinitis of left Samantha [facility] shoulder / Hospital M75.32(ICD-10) Repository 09/21/2017 Unknown M25.512 - Pain in Hugo Sy Active Debbie left shoulder / Community M25.512(ICD-10) Hospital Repository 09/21/2017 Unknown M24.019 - Loose body Hugo Sy Active Debbie in unspecified [facility] shoulder / Hospital M24.019(ICD-10) Repository PROCEDURES PROCEDURES No Procedure Records FoundRESULTS RESULTS AMB OFFICE-PROGRESS Observed: 09/03/2018 Status: F Source: [facility] NOTES-PROVIDER 3:04 PM [facility] REPOSITORY Patient: SHANTE MILLARD Age: 68 years Sex: Female : 1950 Associated Diagnoses: None Author: SUZANNE MCCLURE, [facility] Visit Information Visit type: Scheduled follow-up. Accompanied by: No one. Source of history: Self. History limitation: None. Chief Complaint 08/29/2018 9:07 EST CHK UP DYSPNEA History of Present Illness This is a follow-up visit for Mrs. Millard after 6 months for dyspnea. Apparently she did see a launch manager and currently she is taking a Ventolin inhaler. Every time she gets exposed to cold weather s he gets some shortness of breath. No chest pain no dizziness no lightheadedness. She is trying to lose weight and she does get her swimming aerobics. Seems to be compliant with her medications. Review of Systems Constitutional: Negative. Eye: Negative. [...] Formula (Bacillus Coagulans): ORAL, DAILY, 0 Refill(s) Ventolin HFA 90 mcg/inh inhalation aerosol: puffs, Inhalation, QID, 0 Refill(s) Vitamin B Complex oral tablet: [...] 02/08/2018 Use: Never (less than 100 in l. Physical Examination Temperature 97.5 (09:08) Systolic Blood Pressure No result Diastolic Blood Pressure No result Pulse 70 (09:08) SpO2 No result Respiratory Rate No result VS/Measurements Documented vital signs: Blood Pressure ( Systolic 132 mmHg, Diastolic 76 mmHg ) General: Alert [...] Plan 1.Exertional dyspnea and negative cardiac work up: Now on inhaler 2.Advised to continue current medicaitons 3.Follow up in six months. 4.Copy to Dr Sy. HIP, UNI W/ PELVIS Observed: 08/03/2018 Status: F Source: [place] 2-3 VIEWS 11:31 AM [facility] REPOSITORY [facility] Imaging Services [address] [place] [address] HIP, UNI W/ Pelvis 2-3 Views MR#: [id number] Acct: [id number] Name: SHANTE MILLARD Rep #: [id number] : 1950 F 68 From: Erik Clark DO PCP: Hugo Sy MD Status: REG CLI Study: HIP, UNI W/ Pelvis 2-3 Views Date of Exam: 08/03/18 Exam# [id number] Ordering Dr: Shahla Stevens STUDY: X-RAY - RIGHT HIP REASON FOR EXAM: Female, 68 years old. Right hip pain TECHNIQUE: 2 views of the hip. COMPARISON: None. FINDINGS: There are osteoarthritic changes of the femoral head with marginal osteophyte formation. Normal acetabulum. There is mild articular joint space narrowing. Normal visualized superior and inferior pubic rami and ischial tuberosities. Lower lumbar spine postsurgical changes. Tubal ligation clips. RAD/HIP, UNI W/ Pelvis 2-3 Views IMPRESSION: Degenerative change of the right hip. Electronically Signed: Erik Clark DO at 11:30 EST Tel , Service support , CC: Shahla Stevens; Hugo Sy MD Instructional Systems Designer: Signed PROGRESS Observed: 07/28/2018 Status: COMPLETED Source: [place] 3:05 PM [facility] REPOSITORY HNO ID: [id number] Author: Rico Puga Service: (none) Author Type: Nurse Practitioner Type: Progress Notes Filed: 07/28/2018 5:13 PM Note Text: Reason for Today's [facility] Clinic Visit at [place]: ANASTASIYA 05/05/18 Impression: G47.33 CONOR (obstructive sleep apnea) AHI 40 (primary encounter diagnosis) I10 Essential hypertension, benign ? 68 yo female on PAP therapy and current CPAP greater then 5 years and broken beyond repair- humidity and pressures are broken. Need for new supplies, but needs to be set up with a new DME as [employer] is going out of business. Plan: - Will start Auto CPAP 5-10 cmH2O with a Nasal mask. - I will have a prescription sent to a Tagged ([employer] medical [employer]) company - [employer] who will be calling you in the [...] therapy, to continue to cover supplies. ? [facility] REQUIREMENTS: - Your insurance requires a heyp-el-pwpr follow up visit within a 31-90 day [...] up in 3 months ? Rico Puga, MERCHANDISE COMPLAINT ADJUSTER.ROTOFORMER BACKTENDER SLEEP APNEA Sleep apnea type : CONOR, Most Recent Apnea-Hypopnea Index (AHI): 40 Treatment : PAP therapy DME: [employer] PAP History: Uses AutoPAP for 6 hours [...] Laterality Date - COLONOSCOP W/ OR W/O [facility] SPEC 08/07/09 - COLONOSCOP W/ OR W/O [facility] SPEC 11/05/14 Colonoscopy - PAST SURGICAL HISTORY [...] immediate contact and intervention. Rico Puga CNP CNOV Observed: 07/28/2018 Status: COMPLETED Source: [place] 3:00 PM [facility] REPOSITORY Office Visit (NEMJASON) SHANTE MILLARD ([id number]) 1950 [facility] Date Time Provider Department 07/28/18 3:00 PM RICO PUGA (SOUMYA) ANKUR During your visit today, we recorded the following information about you: Pulse Respiration Blood pressure 70/minute 16/minute 115/62 Rico Puga APRN.CNP 07/28/2018 5:13 PM Signed Reason for Today's [facility] Visit at [place]: ANASTASIYA 05/05/18 Impression: G47.33 CONOR (obstructive sleep apnea) AHI 40 (primary encounter diagnosis) I10 Essential hypertension, benign ? 68 yo female on PAP therapy and current CPAP greater then 5 years and broken beyond repair- humidity and pressures are broken. Need for new supplies, but needs to be set up with a new DME as [employer] is going out of business. Plan: - Will start Auto CPAP 5-10 cmH2O with a Nasal mask. - I will have a prescription sent to a DME ([employer] medical [employer]) company - [employer] who will be calling you in the next 1-2 weeks or so. Please call them directly or us if you do not hear from them in this time frame. - You should be eligible for new supplies approximately every 3-6 months, depending on your insurance coverage. - If your mask doesn't fit well, call the Tagged company before 30 days are up to get a new mask without an additional charge. - Insurance requires regular usage and periodic office follow ups for PAP therapy, to continue to cover supplies. ? [facility] REQUIREMENTS: - Your insurance requires a ghmu-mh-zufm follow up visit within a 31-90 day [...] up in 3 months ? Rico Puga, MERCHANDISE COMPLAINT ADJUSTER.ROTOFORMER BACKTENDER SLEEP APNEA Sleep apnea type : CONOR, Most Recent Apnea-Hypopnea Index (AHI): 40 Treatment : PAP therapy Tagged: [employer] PAP History: Uses AutoPAP for 6 hours [...] shoulders - CONOR (obstructive sleep apnea) 12/27/2012 DME [facility] - Snoring PAST SURGICAL HISTORY Procedure Laterality Date - COLONOSCOP W/ OR W/O [facility] SPEC 08/07/09 - COLONOSCOP W/ OR W/O [facility] SPEC 11/05/14 Colonoscopy - PAST SURGICAL HISTORY [...] for immediate contact and intervention. Rico Puga ROTOFORMER BACKTENDER Referring Provider: MARIANNA NEWELL [[id number]] Allergies As of Date: 07/28/2018 Noted Allergy Reaction BENEDRYL (DIPHENHYDRAMINE) 11/07/2014 8 - GI Upset Comments: Patient felt hazy for several days after Colonoscopy for a while due to benedryl PENICILLINS 06/04/2009 SULFA (SULFONAMIDE ANTIBIOTICS) 06/04/2009 Date Reviewed: 07/28/2018 Reviewed by: Rico (Pipe Bowl Paint Trimmer) Edd - Fully Assessed Reason for Visit: Sleep Apnea Clinic [Other] Primary Visit Diagnosis:CONOR (obstructive sleep apnea) [G47.33] Prescriptions as of 07/28/2018 Sig: AZELASTINE-FLUTICASONE 137 MC* Use 1 [place] in each nostril t* BIOTIN 2,500 MCG [...] Class: Chronic More... DDD (degenerative disc disease) [MWH2911] INVALID FOR* More... Fibroid Uterus [D25.9] INVALID [...] Disposition History Recorded Encounter Status:Closed by RICO PGUA on 07/28/18 PULMONARY VISIT REPORT Observed: 07/28/2018 Status: F Source: [place] 7:37 AM [facility] REPOSITORY [facility] Pulmonary Medicine [address] [place] [address] OFFICE VISIT Date of Service: 07/28/18 MR#: [id number] Acct: [id number] Name: SHANTE MILLARD Rep #: [id number] : 1950 Provider: Peter Eddy D.O. Age/Sex: 68/F [facility] Status: Signed Assessment AND Plan 1. Mild [...] She was previously followed by Dr. Hernandez (graduate teaching assistant). She states that she was previously prescribed [...] home environment. 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 [place] [address] OFFICE VISIT Date of Service: 07/13/18 MR#: [id number] Acct: [id number] Name: SHANTE MILLARD Rep #: [id number] : 1950 Provider: Macy Eller Age/Sex: 68/F Location: [facility] Status: Signed Assessment AND Plan 1. 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 Laboratory [address] [place], [place], [address] ALLERGEN, MINI-RAST Collected: 07/13/2018 Status: F Source: [place] 10:45 AM [facility] REPOSITORY TYPE CODE TESTS RESULT OUT OF REFERENCE UNITS RANGE LAB L5500.1001 Class 0 kU/L D PTERONYSSINUS Normal <0.10 LAB L5500.1002 Class 0 kU/L D FARINAE MITE Normal <0.10 LAB L5500.2000 Class 0 kU/L CAT HAIR/DANDER Normal <0.10 [...] Urine Normal <0.10 Result Comment: Performed at: - [facility] [id number] Speech Lang Path: Angelina Park MD, Phone: [phone] LAB J3684.0241 . Normal RAST COMMENT Comment Result Comment: [...] 07/13/2018 Status: F Source: [place] 10:45 AM [facility] REPOSITORY TYPE CODE TESTS RESULT OUT OF RANGE REFERENCE UNITS LAB L3200.1600 0-100 IU/mL Normal IMMUNO E 32 Result Comment: Performed at: [facility] [id number] Speech Lang Path: Angelina Park MD, Phone: [phone] Performed By: #### L3200.1600, L3500.3600 #### [facility] (refer to report for specific site) refer to report for address and phone number ASPERGILLUS ANTIBODIES Collected: 07/13/2018 Status: F Source: [place] 10:45 AM [facility] REPOSITORY TYPE CODE TESTS RESULT OUT OF RANGE REFERENCE UNITS LAB L3500.3700 Neg:<1:1 Asp. Normal fumigatus Negative LAB L3500.3800 Neg:<1:1 Asp. Normal flavus Negative LAB L3500.3900 Neg:<1:1 Asp. Normal niger Negative Performed By: #### L3200.1600, L3500.3600 #### [facility] (refer to report for specific site) refer to report for address and phone number 6 MINUTE WALK TEST Observed: 06/16/2018 Status: F Source: [place] 3:10 PM [facility] REPOSITORY [facility] Pulmonary Services/Neurology [address] [place] [address] MR#: [id number] Acct: [id number] Name: SHANTE MILLARD Rep #: [id number] : 1950 68 From: Jose Angel Heart MD Referring Dr: Pteer Eddy D.O. Date: Ordering Dr: Sex: F C Location: PSN PSN 6 Minute Walk Test - 6 Minute Walk Test 6 Minute Walk Test: 6 Minute Walk Test PSN:6-Minute Walk Test Start: 06/16/18 08:55 Freq: Status: Active Protocol: RESP.6MINW Document 06/16/18 08:40 [facility] (Rec: 06/16/18 09:00 [facility] [id number]) 6 Minute Walk Test Date Performed 06/16/18 [...] Jose Angel Heart MD CC: Date Dictated: 06/16/181501 Date Transcribed: 06/16/181501 Instructional Systems Designer: Jose Angel Heart Signed PULMONARY FUNCTION Observed: 06/10/2018 Status: F Source: [place] TEST 12:17 PM [facility] REPOSITORY [facility] Pulmonary Services/Neurology [address] [place] [address] MR#: [id number] Acct: [id number] Name: SHANTE MILLARD Rep #: [id number] : 1950 68 From: Peter Eddy DO Referring Dr: Peter Eddy D.O. Status: REG CLI Ordering Dr: Date: Location: [facility] Sex: F C INTRODUCTION: The patient is [...] MD Date Dictated: 06/10/181214 Date Transcribed: 06/10/181214 Instructional Systems Designer: VAISHNAVI Signed PULMONARY VISIT REPORT Observed: 06/01/2018 Status: F Source: [place] 10:23 AM [facility] Pulmonary Medicine of [address] [place] [address] OFFICE VISIT Date of Service: 06/01/18 MR#: [id number] Acct: [id number] Name: SHANTE MILLARD Phong Rep #: [id number] : 1950 Provider: Peter Eddy D.O. Age/Sex: 68/F Location: [facility] Status: Signed Assessment AND Plan 1. Shortness [...] currently followed by Dr. Hugo Sy of [facility]. 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 She was previously followed by Dr. Hernandez (graduate teaching assistant). She states that she was previously prescribed [...] home environment. 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 Imaging Services [address] [place] [address] SCREENING MAMM (CAD), BILAT MR#: [id number] Acct: [id number] Name: SHANTE MILLARD Rep #: [id number] : 1950 F 68 From: Delano Gregorio MD PCP: Hugo Sy MD Status: REG CLI Study: SCREENING MAMM (CAD), BILAT Date of Exam: 05/25/18 Exam# [id number] Ordering Dr: Aleksandra Lopez MD MAMMOGRAPHY - [...] CC: Hugo Sy MD; Aleksandra Lopez MD Instructional Systems Designer: Signed PROGRESS Observed: 05/05/2018 Status: COMPLETED Source: [place] 3:03 PM [facility] REPOSITORY HNO ID: [id number] Author: Rico Puga Service: (none) Author Type: Nurse Practitioner Type: Progress Notes Filed: 05/05/2018 4:20 PM Note Text: [facility] Follow-up/Established patient visit Date [...] CONOR status and treatment regimen. RT from [place] worked with her ? Plan: Take smart card to [place], I will send her a CRAiLAR msg re compliance report Take machine to [place], learn how to set humidity Try flonase [...] for immediate contact and intervention. ? Audra Monreal, SOUMYA ? ? HPI: SLEEP APNEA Sleep apnea type : CONOR, Most Recent Apnea-Hypopnea Index (AHI): 40 Treatment : PAP therapy DME: [facility] PAP History: Uses CPAP 7 nights per [...] azelastine-fluticasone (DYMISTA) 137-50 mcg/spray spry Use 1 [place] in each nostril twice daily as needed. Biotin-Silicon Yhjv-G-Oitwafda 5,000 mcg-100 mg- 50 mg tab Take by mouth once daily. [place]-3 Fatty Acids, FISH OIL, (FISH OIL) 360-1,200 mg cap Take 1 capsule by mouth twice daily. Coenzyme Q10 (CO Q-10) 200 mg cap Take by mouth once daily. CPAP CPAP 9 cmH2O, suitable mask, tubing, humidifier, filters. Lifetime supplies. Dx: 327.23 - Obstructive sleep apnea . Fax download to Dr Newell [phone] Vital signs: BP 112/71 (BP Site: Left [...] set up with a new DME as [employer] is going out of business. Plan: - [...] your mask doesn't fit well, call the Tagged company before 30 days are up to get a new mask without an additional charge. - Insurance requires regular usage and periodic office follow ups for PAP therapy, to continue to cover supplies. [facility] REQUIREMENTS: - Your insurance requires a [id number]-lz-mcuy follow up visit within a 31-90 day [...] CPAP supplies. Follow up in 3 months BRANDEN Boggs Observed: 05/05/2018 Status: COMPLETED Source: [place] 3:00 PM [facility] REPOSITORY Office Visit (NEMOWS) SHANTE MILLARD ([id number]) 1950 F [facility] Date Time Provider Department 05/05/18 3:00 PM RICO PUGA (SOUMYA) NEMJASON During your visit today, we recorded the following information about you: Pulse Respiration Blood pressure Weight 83/minute 16/minute 112/71 74.9 kg Rico Puga APRN.CNP 05/05/2018 4:20 PM Signed [facility] Follow-up/Established patient visit Date [...] her ? Plan: Take smart card to [place], I will send her a CRAiLAR msg re compliance report Take machine to [place], learn how to set humidity Try flonase [...] for immediate contact and intervention. ? Audra Monreal, SOUMYA ? ? HPI: SLEEP APNEA Sleep apnea type : [place], Most Recent Apnea-Hypopnea Index (AHI): 40 Treatment : PAP therapy DME: [facility] PAP History: Uses CPAP 7 nights per [...] azelastine-fluticasone (DYMISTA) 137-50 mcg/spray spry Use 1 [place] in each nostril twice daily as needed. Biotin-Silicon Otud-N-Twlygvwo 5,000 mcg-100 mg- 50 mg tab Take by mouth once daily. [place]-3 Fatty Acids, FISH OIL, (FISH OIL) 360-1,200 mg cap Take 1 capsule by mouth twice daily. Coenzyme Q10 (CO Q-10) 200 mg cap Take by mouth once daily. CPAP CPAP 9 cmH2O, suitable mask, tubing, humidifier, filters. Lifetime supplies. Dx: 327.23 - Obstructive sleep apnea . Fax download to Dr Newell [phone] Vital signs: BP 112/71 (BP Site: Left [...] set up with a new DME as [employer] is going out of business. Plan: - [...] your mask doesn't fit well, call the Tagged company before 30 days are up to get a new mask without an additional charge. - Insurance requires regular usage and periodic office follow ups for PAP therapy, to continue to cover supplies. [facility] REQUIREMENTS: - Your insurance requires a tcrp-ar-serw follow up visit within a 31-90 day [...] will have a prescription sent to a [employer] medical equipment) company - [employer] who will be calling you in the next 1-2 weeks or so. Please call them directly or us if you do not hear from them in this time frame. - You should be eligible for new supplies approximately every 3-6 months, depending on your insurance coverage. - If your mask doesn't fit well, call the Tagged company before 30 days are up to get a new mask without an additional charge. - Insurance requires regular usage and periodic office follow ups for PAP therapy, to continue to cover supplies. CMS REQUIREMENTS: - Your insurance requires a dsxq-yy-kzex follow up visit within a 31-90 day [...] for CPAP supplies. Referring Provider: MARIANNA NEWELL [[id number]] Allergies As of Date: 05/05/2018 Noted Allergy Reaction BENEDRYL (DIPHENHYDRAMINE) 11/07/2014 8 - GI Upset Comments: Patient felt hazy for several days after Colonoscopy for a while due to benedryl PENICILLINS 06/04/2009 SULFA (SULFONAMIDE ANTIBIOTICS) 06/04/2009 Date Reviewed: 05/05/2018 Reviewed by: Rico (Soumya) Edd - Fully [...] once d* AZELASTINE-FLUTICASONE 137 MC* Use 1 [place] in each nostril t* BIOTIN 5,000 MCG-SILICON DIOX* Take by mouth once daily. OMEGA-3 FATTY ACIDS-FISH OIL * Take 1 capsule by mouth twice* COENZYME Q10 200 MG CAPSULE Take by mouth once daily. CPAP CPAP 9 cmH2O, suitable mask, * More... Problem List As Of Date 05/05/2018 Noted Resolved Routine Gynecological Examination [Z01.419] INVALID FOR* Class: Chronic More... DDD (degenerative disc disease) [HTQ0962] INVALID FOR* More... Fibroid Uterus [D25.9] INVALID [...] will have a prescription sent to a [employer] medical equipment) company - [employer] who will be calling you in the next 1-2 weeks or so. Please call them directly or us if you do not hear from them in this time frame. - You should be eligible for new supplies approximately every 3-6 months, depending on your insurance coverage. - If your mask doesn't fit well, call the Tagged company before 30 days are up to get a new mask without an additional charge. - Insurance requires regular usage and periodic office follow ups for PAP therapy, to continue to cover supplies. CMS REQUIREMENTS: - Your insurance requires a lnvq-lx-uhyw follow up visit within a 31-90 day [...] 05/05/2018 Class: Print RX Cmt: Changing DME, [facility] patient. Current machine broken beyond repair and 5 years old. Route: MISCELL. Si Device by MISCELLANEOUS route daily at bedtime. Settings 5 - 10 cm H2O, suitable mask per pt preference, chin strap, head gear, humidity, tubing, lifetime supplies. G47.33 Obstructive Sleep Apnea Disposition: Return in about 3 months (around 08/04/2018). 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's [place] 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 DatName GA/WeeksOutcome Route [facility] Perla Coto LgAnesthesDel LocaProviderFOB e ht en ia tn Unknown 1970 Bonnie Galloway ling Unknown 1973 Mohan Millard [facility] ANNUAL - REFERRED BY SCOOTER MCDOWELL: Details: [...] no acute distress, well developed, well groomed [facility] Head: normal to inspection, normocephalic Ears: hearing [...] Gynecological examination findings: abnormal findings ABSENT 04/26/18 1515 <Electronically signed by Aleksandra Lopez MD> Date Aleksandra Lopez MD Cosigner Signature: Date (if applicable) CC: CBC W/DIFF, AUTOMATED Collected: 04/13/2018 Status: F Source: [place] 1:17 PM [facility] REPOSITORY TYPE CODE TESTS RESULT OUT OF [...] 1.58 Performed By: #### L100.0100, L101.9900 #### [facility] [address] [address] [place], [place], [id number] ERYTHROCYTE SED RATE Collected: 04/13/2018 Status: F Source: [place] 1:17 PM [facility] REPOSITORY TYPE CODE TESTS RESULT OUT OF RANGE REFERENCE UNITS LAB L102.0000 0-30 mm/hr Normal SED RATE 16 Performed By: #### L100.0100, L101.9900 #### [facility] [address] [facility] [id number] CRP Collected: 04/13/2018 Status: F Source: [place] 1:17 PM [facility] REPOSITORY TYPE CODE TESTS RESULT OUT OF [...] By: #### L501.6710, L501.9520, L505.7010, L506.0400 #### [facility] [address] [place], [place], [address] THYROID STIM HORMONE Collected: 04/13/2018 Status: F Source: [place] (TSH) 1:17 PM [facility] REPOSITORY TYPE CODE TESTS RESULT OUT OF RANGE REFERENCE UNITS LAB L501.9520 0.358-3.74 uIU/mL Normal TSH 0.73 Performed By: #### L501.6710, L501.9520, L505.7010, L506.0400 #### [facility] [address] [place], [address] RHEUMATOID FACTOR Collected: 04/13/2018 Status: F Source: [place] 1:17 PM [facility] REPOSITORY TYPE CODE TESTS RESULT OUT OF RANGE REFERENCE UNITS LAB L505.7010 <15 IU/mL Normal RHEUMATOID FAC < 10.0 Performed By: #### L501.6710, L501.9520, L505.7010, L506.0400 #### [facility] [address] [place], [place], [address] T4 FREE DIRECT Collected: 04/13/2018 Status: F Source: [place] 1:17 PM [facility] REPOSITORY TYPE CODE TESTS RESULT OUT OF RANGE REFERENCE UNITS LAB L506.0400 0.76-1.46 ng/dL Normal T4 FREE 0.96 DIRECT Performed By: #### L501.6710, L501.9520, L505.7010, L506.0400 #### [facility] [address] [place], [place], [address] VITAMIN D,25 HYDROXY Collected: 04/13/2018 Status: F Source: [place] 1:17 PM [facility] REPOSITORY TYPE CODE TESTS RESULT OUT OF RANGE REFERENCE UNITS LAB L506.1000 29.95-100.01 ng/mL Normal Vitamin D 51.6 25-OH Result Comment: Vitamin D 25(OH) Status Range Deficiency <20 ng/mL (50nmol/L) Insuffciency 20 - 30 ng/mL (50 - 75 nmol/L) Sufficiency 30 - 100 ng/mL (75 - 250 nmol/L) Toxicity >100 ng/mL (>250 nmol/L) Performed By: #### L506.1000 #### [facility] [address] [place], [address] JACE W/ REFLEX MULT Collected: 04/13/2018 Status: F Source: [place] CONFIRM 1:17 PM [facility] REPOSITORY TYPE CODE TESTS RESULT OUT OF RANGE REFERENCE UNITS LAB L3100.5475 Negative Normal Negative JACE-DIRECT Result Comment: Performed at: - [facility] [address] [id number] Speech Lang Path: Parish Yun PhD, Phone: [phone] Performed By: #### L3100.5450 #### [facility] (refer to report for specific site) refer to report for address and phone number CCP IGG ANTIBODIES Collected: 04/13/2018 Status: F Source: [place] 1:17 PM [facility] REPOSITORY TYPE CODE TESTS RESULT OUT OF RANGE REFERENCE UNITS LAB L4600.0100 0-19 units Normal ANTI-CCP 12 [id number] Result Comment: Negative <20 Weak positive 20 - 39 Moderate positive 40 - 59 Strong positive >59 Performed at: - [facility] [id number] Speech Lang Path: Jhonathan Diaz MD, Phone: [phone] Performed By: #### L4600.0100 #### [facility] (refer to report for specific site) refer to report for address and phone number AMB OFFICE-PROGRESS Observed: 03/02/2018 Status: F Source: [facility] NOTES-PROVIDER 8:28 AM [facility] REPOSITORY Patient: SHANTE MILLARD Age: 67 years Sex: Female : 1950 Associated Diagnoses: None Author: SUZANNE MCCLURE, [facility] Visit Information Visit type: Scheduled follow-up. [...] in six months. 4.Copy to Dr Sy. [facility] OFFICE-PROGRESS Observed: 03/01/2018 Status: F Source: [facility] NOTES-PROVIDER 9:50 PM [facility] REPOSITORY Patient: SHANTE MILLARD Age: 67 years [...] AMB OFFICE-PROGRESS Observed: 02/22/2018 Status: F Source: [facility] NOTES-PROVIDER 9:37 PM [facility] REPOSITORY Patient: SHANTE MILLARD Age: 67 years Sex: Female : 1950 Associated Diagnoses: None Author: SUZANNE MCCLURE, DERIK Exam Indication: Dyspnea Date of Exam: 02/22/2018 Referring Physician: Edy Kay Clinical History: 67 yr old lady with family history of CAD is here with new onset exertional dyspnea Procedure: The supervising fire control mechanic, Dr Javy Savage, reviewed the patient's baseline [...] TEST REPORT Observed: 02/22/2018 Status: F Source: [facility] 12:45 PM [facility] REPOSITORY Patient: SHANTE MILLARD Age: 67 years [...] ORTHOPEDIC VISIT Observed: 10/08/2017 Status: F Source: [place] REPORT 10:25 AM [facility] REPOSITORY [facility] Orthopaedics AND Sports Medicine [address] [place] [address] OFFICE VISIT Date of Service: 10/07/17 MR#: [id number] Acct: [id number] Name: SHANTE MILLARD Rep #: [id number] : 1950 Provider: Samantha Chinchilla DO Age/Sex: 67/F Location: [facility] [place] Status: Signed Intake Vital Signs10/07/17 Height 5 [...] concerns. Office Meds Kenalog Performing Provider: Samantha Chinchilla DO Administered by: Samantha Chinchilla DO on 10/07/17 14:52 Dose Route Admin Location Lot Number Expiration DateNDC Testing Director 2 mg Intra-Articularleft [id number] 10/14/18 9692-6003-58 [employer]RISTOL [employer] ubitus SQUIBB Assessment AND Plan 1. Rotator cuff syndrome [...] tendonitis of left shoulder M75.32 Additional Codes orientor.sub (49247) 10/08/17 1025 <Electronically signed by Samantha Chinchilla DO> Date Samantha Chinchilla DO Cosignnarcisa Signature: Date (if applicable) CC: Hugo Sy EXTREMITY UPPER Observed: 09/21/2017 Status: F Source: [place] WITHOUT CONTRA 5:42 PM [facility] REPOSITORY [facility] Imaging Services [address] [place] [address] Extremity Upper without Contra MR#: [id number] Acct: [id number] Name: SHANTE MILLARD Rep #: [id number] : 1950 F 67 From: Ho Lee MD PCP: Hugo Sy Status: REG CLI Study: Extremity Upper without Contra Date of Exam: 09/21/17 Exam# [id number] Ordering Dr: Hugo Sy MD STUDY: CT [...] , Service support , CC: Hugo Sy Instructional Systems Designer: Signed SHOULDER MIN 2 VIEWS Observed: 09/13/2017 Status: F Source: [place] 3:53 PM [facility] REPOSITORY [facility] Imaging Services [address] [place] [address] Shoulder min 2 Views MR#: [id number] Acct: [id number] Name: SHANTE MILLARD Rep #: [id number] : 1950 F 67 From: Erik Clark DO PCP: Hugo Sy Status: REG CLI Study: Shoulder min 2 Views Date of Exam: 09/13/17 Exam# [id number] Ordering Dr: Hugo Sy MD STUDY: X-RAY [...] , Service support , CC: Hugo Sy Instructional Systems Designer: Signed ALLERGIES ALLERGIES DATE TYPE / NAME / CODE REACTION SEVERITY SOURCE CODE 07/28/2018 Drug Penicillins/[id number] Rash Unknown [place] Allergy/41 6(RXNORM) Community 5799562( Hospital OMED CT) Repository 07/28/2018 Drug Sulfa (Sulfonamide Hives Unknown [place] Allergy/41 Antibiotics)/Y5406009 Community 5589628([facility](RXNORM) Hospital OMED CT) Repository 11/07/2014 DRUG DIPHENHYDRAMINE GI UPSET [facility] INGREDI/41 [place] 2142754(SN Repository OMED CT) 06/04/2009 Drug PENICILLINS [facility] Class/4195 [place] [address](SNOM Repository ED CT) 06/04/2009 Drug SULFA (SULFONAMIDE [facility] Class/4195 ANTIBIOTICS) [place] [address]25(SNOM Repository ED CT) ENCOUNTERS ENCOUNTERS ADMIT/DISCHARGE ACCOUNT NUMBER ADMITTING ENCOUNTER LOCATION SOURCE CLASS 08/29/2018 [id number] [facility] Repository 08/29/2018/08/29/19 [id number] Ambulatory [place] [address] ing:[facility] oom: [address] Repository 08/03/2018 [id number] Ambulatory [facility] ding:MTRAD Repository 07/28/2018/07/29/20 [id number] Ambulatory [address] Repository 07/28/2018/07/28/20 [id number] Ambulatory BMSBuilding: [place] [facility] Repository 07/13/2018 [id number] Ambulatory [facility] ding:PAVLAB Repository 07/13/2018/07/13/20 [id number] [facility] [place] [facility] 06/16/2018 [id number] Ambulatory [facility] ding:PSN Repository 06/16/2018 [id number] Ambulatory BMSBuilding: [facility] Repository 06/10/2018 [id number] Ambulatory BMSBuilding: [facility] Repository 06/09/2018 [id number] Ambulatory [facility] ding:PSN Repository 06/01/2018/06/01/20 [id number] Ambulatory BMSBuilding: [place] 18 BMS.[facility] Repository 05/25/2018 [id number] Ambulatory [facility] ding:OPBI Repository 05/05/2018/05/06/20 [id number] Ambulatory [address] Repository 04/26/2018/04/26/20 [id number] Ambulatory BMSBuilding: [place] 18 BMS.[facility] Repository 04/13/2018 [id number] Ambulatory [facility] ding:BFHLAB Repository 03/08/2018 [id number] Ambulatory BMSBuilding: [place] BMS.[facility] Repository 03/01/2018/03/01/20 [id number] Ambulatory [facility] [place] [address] ing:[facility] oom: [address] Repository 02/22/2018/02/23/20 [id number] Ambulatory [facility] [place] [address] ing:[facility] Repository 02/22/2018/02/23/20 [id number] [facility] [place] [address] ing:[facility] Repository 02/08/2018/02/09/20 [id number] Amb[address] [facility] [place] [address] ing:[facility] oom: [address] Repository 10/07/2017/10/07/19 [id number] Ambulatory BMSBuilding: [place] 18 BMS.[facility] Repository 09/21/2017 [id number] Ambulatory [facility] ding:CT Repository 09/13/2017 [id number] Ambulatory [facility] ding:HPRAD Repository PAYERS PAYERS ENCOUNTER GUARANTOR PAYER SUBSCRIBER SOURCE 08/29/2018 SHANTE CROWDOB: Primary SHANTE CROWDOB: [facility] [id number] amira Rowan Number: [facility] [address]Wrd: Date:0183-84-31[place] [address]Mqk: Repository Name:RONNIE () () (WP) 08/29/2018 Secondary SHANTE CROWDOB: [facility] Insurance:AETNAPolicy [id number] General Health Number: [facility] [id number] [address]Ilk: Repository Date:5172-84-07Rvjz Name:Allyssa () (WP) 08/29/2018 SHANTE CROWDOB: Primary SHANTE CROWDOB: [facility] [id number] General [facility] ALICIA Pereira [facility] Number: Effective [facility] [address]Xdd: Date:0962-66-50[place] [address]Crt: Repository Name:RONNIE () () (WP) 08/29/2018 Secondary SHANTE CROWDOB: [facility] Insurance:AETNAPolicy [id number] General Health Number: ALIC[facility] [id number] [address]Hmx: Repository Date:9944-29-64Fqbl Name:Allyssa () (WP) 08/03/2018 SHANTE M Primary SHANTE M [place] [id number] ALICIA Insurance:MEDICARE CROWDOB: [place] BPolic [id number] Hospital [address]Bbf: (330) Number: Repository [phone] () [id number] Date:2018-08-03 08/03/2018 Secondary SHANTE M [place] Insurance:AETNA SR CROWDOB: Community SUPPLEMENT INSPolicy [id number] Hospital Number: Repository [id number] Date:3818-77-43NKBED SENIOR SUPPLEMENT [address] [place] [address]JA: 08/03/2018 Tertiary NOT GIVENUNK [place] Insurance:SELF PAY [facility] Number: Effective Repository Date:2018-08-03 07/28/2018 SHANTE M Primary SHANTE M [place] [id number] ALICIA Insurance:MEDICARE CROWDOB: [place] A [facility] [id number] Hospital [address]Bpl: (330) Number: Repository [phone] () [id number] Date:2018-07-13 07/28/2018 Secondary SHANTE M [place] Insurance:AETNA SR CROWDOB: Community [facility] [id number] Hospital Number: Repository [id number] Date:9248-21-80AZABP SENIOR SUPPLEMENT IN[address] [place] [address]KJ: 07/28/2018 Tertiary NOT GIVENUNK [place] Insurance:SELF PAY [facility] Hospital Number: Effective Repository Date:2018-07-20 07/13/2018 SHANTE M Primary SHANTE M [place] [id number] ALICIA Insurance:MEDICARE CROWDOB: [place] PART A [facility] [id number] Hospital [address]Ngp: (330) Number: Repository [phone] () [id number] Date:2018-07-13 07/13/2018 Secondary SHANTE M [place] Insurance:AETNA SR CROWDOB: Community [facility] [id number] Hospital Number: Repository [id number] Date:7031-74-68PFOHE SENIOR SUPPLEMENT [address] [place] [address]UC: 07/13/2018 Tertiary NOT GIVENUNK [place] Insurance:SELF PAY [facility] Number: Effective Repository Date:2018-07-13 07/13/2018 SHANTE M Primary SHANTE M [place] [id number] ALICIA Insurance:MEDICARE CROWDOB: [place] [facility] [id number] Hospital [address]Sem: (330) Number: Repository [phone] () [id number] Date:2018-06-01 07/13/2018 Secondary SHANTE M [place] Insurance:AETNA SR CROWDOB: Community [facility]MENT [facility] [id number] Hospital Number: Repository [id number] Date:3686-51-91HMBPH SENIOR SUPPLEMENT [address] [place] [address]QJ: 07/13/2018 Tertiary NOT GIVENUNK [place] Insurance:SELF PAY [facility] Number: Effective Repository Date:2018-07-05 06/16/2018 SHANTE M Primary SHANTE M [place] [id number] ALIC[place] Insurance:MEDICARE CROWDOB: [place] [facility] [id number] Hospital [address]Paa: (416) Number: Repository [phone] () [id number] Date:2018-06-01 06/16/2018 Secondary SHANTE M [place] Insurance:AETNA SR CROWDOB: Community SUPPLEMENT [facility] [id number] Hospital Number: Repository [id number] Date:0952-74-34FSIEC SENIOR SUPPLEMENT [address] [address]JQLB[place], [place] [address]VC: 06/16/2018 Tertiary NOT GIVENUNK [place] Insurance:SELF PAY [facility] Hospital Number: Effective Repository Date:2018-06-01 06/16/2018 SHANTE M Primary SHANTE M [place] [id number] [place] Insurance:MEDICARE CROWDOB: [place] [facility] [id number] Hospital [address]Ivs: (527) Number: Repository [phone] () [id number] Date:2018-06-01 06/16/2018 Secondary SHANTE M [place] Insurance:AETNA SR CROWDOB: Community SUPPLEMENT [facility] [id number] Hospital Number: Repository [id number] Date:2531-00-17REMGY SENIOR SUPPLEMENT [id number] [place] [address]OQ: 06/16/2018 Tertiary NOT GIVENUNK [place] Insurance:SELF PAY [facility] Number: Effective Repository Date:2018-06-16 06/10/2018 SHANTE M Primary SHANTE M [place] [id number] ALIC[place] Insurance:MEDICARE CROWDOB: [place] [facility] [id number] Hospital [address]Gyx: (533) Number: Repository [phone] () [id number] Date:2018-06-01 06/10/2018 Secondary SHANTE M [place] Insurance:AETNA SR CROWDOB: Community SUPPLEMENT [facility] [id number] Hospital Number: Repository [id number] Date:9490-11-61FAMJH SENIOR SUPPLEMENT [id number] [place] [address]TT: 06/10/2018 Tertiary NOT GIVENUNK [place] Insurance:SELF PAY [facility] Number: Effective Repository Date:2018-06-10 06/09/2018 SHANTE M Primary SHANTE M [place] [id number] [place] Insurance:MEDICARE CROWDOB: [place] [facility] [id number] Hospital [address]Gfa: (330) Number: Repository [phone] () [id number] Date:2018-06-01 06/09/2018 Secondary SHANTE M [place] Insurance:AETNA SR CROWDOB: Community SUPPLEMENT [facility] [id number] Hospital Number: Repository [id number] Date:8365-50-41WBHUK SENIOR SUPPLEMENT [address] [place] [address]SE: 06/09/2018 Tertiary NOT GIVENUNK [place] Insurance:SELF PAY [facility] Hospital Number: Effective Repository Date:2018-06-01 06/01/2018 SHANTE M Primary SHANTE M [place] [id number] [place] Insurance:MEDICARE CROWDOB: [place] [facility] [id number] Hospital [address]Mak: (330) Number: Repository [phone] () [id number] Date:2018-03-15 06/01/2018 Secondary SHANTE M [place] Insurance:AETNA SR CROWDOB: Community SUPPLEMENT [facility] [id number] Hospital Number: Repository [id number] Date:8238-58-69GGGEI SENIOR SUPPLEMENT [address] [place] [address]AM: 06/01/2018 Tertiary NOT GIVENUNK [place] Insurance:SELF PAY [facility] Number: Effective Repository Date:2018-05-25 05/25/2018 SHANTE Darling Primary SHANTE Darling [place] [id number] [place] Insurance:MEDICARE CROWDOB: [place] [facility] [id number] Hospital [address]Hnj: (330) Number: Repository [phone] () [id number] Date:2018-04-27 05/25/2018 Secondary SHANTE M [place] Insurance:AETNA SR CROWDOB: Community SUPPLEMENT [facility] [id number] Hospital Number: Repository [id number] Date:3565-99-46ZFYXH SENIOR SUPPLEMENT [address] [place] [address]ZR: 05/25/2018 Tertiary NOT GIVENUNK [place] Insurance:SELF PAY [facility] Number: Effective Repository Date:2018-04-27 04/26/2018 SHANTE M Primary SHANTE [place] [id number] [place] Insurance:MEDICARE CROWDOB: [place] PART [place] [facility] [id number] Hospital [address]Pwp: [phone]) Number: Repository [phone] () [id number] Date:2018-02-03 04/26/2018 Secondary SHANTE M Howe Insurance:AETNA SR CROWDOB: Community SUPPLEMENT [facility] [id number] Hospital Number: Repository [id number] Date:4788-27-66HVRDW SENIOR SUPPLEMENT [id number] [place] [id number]: 04/26/2018 Tertiary NOT GIVENUNK Howe Insurance:SELF PAY [facility] Number: Effective Repository Date:2018-04-26 04/13/2018 SHANTE Darling Primary SHANTE Darling Howe [id number] ALICIA Insurance:MEDICARE CROWDOB: [place] PART [place] [facility] [id number] Hospital [address]Qmg: (330) Number: Repository [phone] () [id number] Date:2018-04-13 04/13/2018 Secondary SHANTE M Debbie Insurance:AETNA SR CROWDOB: Community SUPPLEMENT [facility] [id number] Hospital Number: Repository [id number] Date:[id number] SENIOR SUPPLEMENT [id number] [place] [id number]: 04/13/2018 Tertiary NOT GIVENUNK Debbie Insurance:SELF PAY [facility] Number: Effective Repository Date:2018-04-13 03/08/2018 SHANTE M Primary SHANTE M Debbie [id number] ALICIA Insurance:MEDICARE CROWDOB: [place] PART [place] [facility] [id number] Hospital [address]Mmg: [phone]) Number: Repository [phone] () [id number] Date:2018-03-08 03/08/2018 Secondary SHANTE M Debbie Insurance:AETNA SR CROWDOB: Community SUPPLEMENT [facility] [id number] Hospital Number: Repository [id number] Date:[id number] SENIOR SUPPLEMENT [address] [address], [place] [address]HE: 03/08/2018 Tertiary NOT GIVENUNK Debbie Insurance:SELF PAY [facility] Number: Effective Repository Date:2018-03-08 10/07/2017 Shante Darling Primary Shante M Debbie [id number] Alicia Insurance:MEDICARE CrowDOB: [place] PART A [facility] [id number] Hospital [address]Xmu: (330) Number: Repository [phone] () [id number] Date:2017-10-01 10/07/2017 Secondary Shante M Debbie Insurance:AETNA SR CrowDOB: [facility] [id number] Hospital Number: Repository [id number] Date:[id number] SENIOR SUPPLEMENT [id number] [place] [id number]: 10/07/2017 Tertiary NOT GIVENUNK Howe Insurance:SELF PAY [facility] Hospital Number: Effective Repository Date:2017-10-01 09/21/2017 Shante M Primary Shante M Howe [id number] Alicia Insurance:MEDICARE CrowDOB: [place] PART [place] [facility] [id number] Hospital [address]Bsn: (330) Number: Repository [phone] () [id number] Date:2017-09-14 09/21/2017 Secondary Shante M Debbie Insurance:AETNA SR CrowDOB: [facility] [id number] Hospital Number: Repository [id number] Date:[id number] SENIOR SUPPLEMENT [id number] [place] [id number]: 09/21/2017 Tertiary NOT GIVENUNK Debbie Insurance:SELF PAY [facility] Hospital Number: Effective Repository Date:2017-09-14 09/13/2017 Shante M Primary Shante M Howe [id number] Alicia Insurance:MEDICARE CrowDOB: [place] PART [place] [facility] [id number] Hospital [address]Bed: (330) Number: Repository [phone] () [id number] Date:2017-09-13 09/13/2017 Secondary Shante M Howe Insurance:AETNA SR CrowDOB: Community [facility] [id number] Hospital Number: Repository [id number] Date:9521-63-39SACEK SENIOR SUPPLEMENT [id number] [place] [id number]: 09/13/2017 Tertiary NOT GIVENUNK Howe Insurance:SELF PAY [facility] Hospital Number: Effective Repository Date:2017-09-13
== END ==
PROVIDERS: Family Provider Family Medicine; PCP Family Medicine; Referring Provider Nurse Practitioner Family; Visit Provider Nurse Practitioner Family
DX: M25.551 Pain in right hip (principal)
CPT/HCPCS: 73502

== ENCOUNTER → 2018-09-12 11:16 | Outpatient (CLI) | payer MEDICARE, OTHER, SELFPAY ==
[2018-07-28 07:10] VITALS: BMI 30.9
--- NOTE | 2018-09-12 11:30 | RAD_ITS ---
STUDY: X-RAY - RIGHT KNEE REASON FOR EXAM: Female, 68 years old. Knee locked up last night. Now patient has pain. TECHNIQUE: 4 view(s) of the knee. COMPARISON: None. FINDINGS: There is a total knee replacement. The prosthetic components are intact and articulate normally with each other. There is no evidence of loosening from the underlying bone. There is no evidence of osseous fracture or destructive osseous pathology. There is no joint effusion. The soft tissue structures are unremarkable. RAD/Knee 4 or More Views IMPRESSION: Right total knee arthroplasty without evidence of acute abnormality. Electronically Signed: Manjeet Hill DO at 12:42 EST Tel [phone], Service support ,
== END ==
PROVIDERS: Family Provider Family Medicine; PCP Family Medicine; Referring Provider Family Medicine; Visit Provider Family Medicine
DX: M25.561 Pain in right knee (principal); Z96.659 Presence of unspecified artificial knee joint
CPT/HCPCS: 73564

== ENCOUNTER → 2018-12-13 13:23 | Outpatient (CLI) | payer MEDICARE, OTHER, SELFPAY ==
[2018-07-28 07:10] VITALS: BMI 30.9
[2018-12-13 15:14] LABS: Absolute Lymphocyte Count 2.11 X10^3/ul (0.83-4.51); Absolute Neutrophil Count 4.2 X10^3/uL (2.0-7.7); Basophil# 0.04 X10^3/uL; Basophil% 0.6 % (0-1); Eosinophils% 2.8 % (0-5); Hematocrit 41.6 % (37-47); Hemoglobin 13.7 g/dl (12.0-15.0); Lymphocyte # 2.11 X10^3/ul (4.0); Mean Corp Hgb Conc 32.9 g/gl (32-36); Mean Corpuscular Hgb 30.3 pg (27.0-32.0); Mean Platelet Vol. 10.2 fl (6.2-12.0); Monocyte# 0.69 X10^3/uL; Monocyte% 9.5 % (0-10); Neutrophil # 4.21 X10^3/uL (2.7-7.7); Neutrophil % 57.8 % (47-70); POSITIVE COUNT NO; POSITIVE DIFFERENTIAL NO; POSITIVE MORPHOLOGY NO; Platelet Count 288 K/mm3 (150-450); RBC Distribution Width CV 14.1 % (11.6-14.6); RBC Distribution Width SD 47.4 fl (35.1-43.9); Red Blood Count 4.52 M/mm3 (4.2-5.4); White Blood Count 7.3 K/mm3 (4.4-11.0)
[2018-12-13 15:43] LABS: AST(SGOT) 16 U/L (15-37); Alanine Aminotransfer ALT/SGPT 27 U/L (13-56); Albumin, Serum 3.9 g/dL (3.2-5.0); Alkaline Phosphatase 77 U/L (45-117); Anion Gap 7 (5-15); BUN 14 mg/dL (7-18); BUN/Creat Ratio 17.9 RATIO (10-20); Calcium,Total 8.9 mg/dL (8.5-10.1); Chloride 105 mmol/L (98-107); Creatinine, Serum 0.78 mg/dL (0.55-1.02); EST Glomerular Filtration Rate 78 mL/min (>60); Est Glom Filt Rate - Afr Amer 95 mL/min (>60); Globulin 3.8 g/dL (2.2-4.2); Glucose 92 mg/dL (74-106); Potassium 3.6 mmol/L (3.5-5.1); Protein, Total 7.7 g/dL (6.4-8.2); Sodium Level 140 mmol/L (136-145); T4 Free Direct 0.96 ng/dL (0.76-1.46); Thyroid Stim Hormone (TSH) 1.03 uIU/mL (0.358-3.74)
== END ==
PROVIDERS: Family Provider Family Medicine; PCP Family Medicine; Visit Provider Family Medicine
DX: I10 Essential (primary) hypertension (principal); R23.2 Flushing; R60.9 Edema, unspecified
CPT/HCPCS: 36415; 80053; 84439; 84443; 85025

== ENCOUNTER → 2019-06-07 08:23 | Outpatient (CLI) | payer MEDICARE, OTHER, SELFPAY ==
[2018-07-28 07:10] VITALS: BMI 30.9
--- NOTE | 2019-06-07 08:26 | BI_ITS ---
MAMMOGRAPHY - BILATERAL SCREENING REASON FOR EXAM: Female, 69 years old. Routine annual screening examination. PERTINENT HISTORY: Aunt with breast cancer. TECHNIQUE: Digital bilateral breast federico (3D mammographic acquisition) in the CC and MLO projections. 2-D mediolateral oblique (MLO) and craniocaudad (CC) views of both breasts were obtained. CAD: Full Field Digital Mammography with Computer Added Detection was performed. COMPARISON: Comparison is made with prior examination May 25, 2018 and May 25, 2017. FINDINGS: Breast Composition: The breasts are heterogeneously dense, which may obscure small masses. There are no dominant masses or suspicious calcifications. Deep tissue clip marker is seen within the stable small nodule in the deep central medial aspect of the left breast. Stable appearance of the small bilateral benign appearing axillary lymph nodes. No other significant abnormalities are identified. There has been no significant change since the prior study. BI/SCREEN MAMM (CAD) W/FEDERICO BILAT IMPRESSION: Stable bilateral screening mammogram. Yearly follow-up mammogram recommended. (A) ASSESSMENT CATEGORY: BIRADS Category 2: Benign. A letter regarding these results will be sent to the patient by the facility within 30 days. Approximately 10% of breast cancers are not detected by mammography. A normal mammogram should not delay biopsy of a clinically suspicious abnormality. [id number] Electronically Signed: Chauncey Hernadez, at 9:38 EDT , Service support ,
== END ==
PROVIDERS: Family Provider Family Medicine; PCP Family Medicine; Referring Provider Obstetrics & Gynecology; Visit Provider Obstetrics & Gynecology
DX: Z12.31 Encounter for screening mammogram for malignant neoplasm of breast (principal)
CPT/HCPCS: 77063; 77067

== ENCOUNTER → 2019-09-08 12:26 | Outpatient (CLI) | payer MEDICARE, OTHER, SELFPAY ==
[2018-07-28 07:10] VITALS: BMI 30.9
--- NOTE | 2019-09-08 12:30 | RAD_ITS ---
STUDY: X-RAY CHEST REASON FOR EXAM: Female, 69 years old. cough for over a month, failing to respond to treatment-rule out pneumonia TECHNIQUE: PA and lateral views of the chest. COMPARISON: None. FINDINGS: The lungs are clear and expanded. There is no demonstrated pleural abnormality. Normal size heart. Normal mediastinum and tristen. Normal visualized pulmonary arteries. Normal visualized aortic arch and descending thoracic aorta. Normal visualized thoracic spine. Normal visualized ribs, clavicles, and shoulders. There is no demonstrated abnormality of the visualized soft tissue structures of the upper abdomen. RAD/Chest PA and Lateral IMPRESSION: Normal x-ray examination of the chest. Electronically Signed: Alex Lee MD at 15:20 EST Tel , Service support ,
== END ==
PROVIDERS: PCP Family Medicine; Referring Provider Family Medicine; Visit Provider Family Medicine
DX: J45.901 Unspecified asthma with (acute) exacerbation (principal)
CPT/HCPCS: 71046

== ENCOUNTER → 2019-10-05 | Outpatient (CLI) | payer MEDICARE, OTHER, SELFPAY ==
[2018-07-28 07:10] VITALS: BMI 30.9
== END | disposition home or self-care (01) ==
LOC: LAB 10:22 → LABSPEC 10:23
PROVIDERS: PCP Family Medicine; Referring Provider Family Medicine; Visit Provider Family Medicine
DX: R19.7 Diarrhea, unspecified (principal)
CPT/HCPCS: 83630; 87493; 87506

== ENCOUNTER → 2020-06-10 | Outpatient (CLI) | payer MEDICARE, OTHER, SELFPAY ==
[2018-07-28 07:10] VITALS: BMI 30.9
--- NOTE | 2020-06-10 07:56 | BI_ITS ---
MAMMOGRAPHY - BILATERAL SCREENING REASON FOR EXAM: Female, 70 years old. Routine annual screening examination. PERTINENT HISTORY: Aunt with breast cancer. Prior left ultrasound-guided breast biopsy. TECHNIQUE: Digital bilateral breast federico (3D mammographic acquisition) in the CC and MLO projections. 2-D mediolateral oblique (MLO) and craniocaudad (CC) views of both breasts were obtained. CAD: Full Field Digital Mammography with Computer Added Detection was performed. COMPARISON: Comparison is made with prior study dated 06/07/2019 and 05/25/2018. FINDINGS: Breast Composition: The breasts are heterogeneously dense, which may obscure small masses. There are no dominant masses or suspicious calcifications. A tissue clip marker is once again seen within a 7 mm nodule in the deep central medial portion of the left breast. Stable benign-appearing small axillary lymph nodes. No other significant abnormalities are identified. There has been no significant change since the prior study. BI/SCREEN MAMM (CAD) W/FEDERICO BILAT IMPRESSION: Stable bilateral screening mammogram. Yearly follow-up mammogram recommended. (A) ASSESSMENT CATEGORY: BIRADS Category 2: Benign. A letter regarding these results will be sent to the patient by the facility within 30 days. Approximately 10% of breast cancers are not detected by mammography. A normal mammogram should not delay biopsy of a clinically suspicious abnormality. [id number] Electronically Signed: Chauncey Hernadez, at 9:59 EDT , Service support ,
== END | disposition home or self-care (01) ==
LOC: OPBI 07:56
PROVIDERS: PCP Family Medicine; Referring Provider Obstetrics & Gynecology; Visit Provider Obstetrics & Gynecology
DX: Z12.31 Encounter for screening mammogram for malignant neoplasm of breast (principal)
CPT/HCPCS: 77063; 77067

== ENCOUNTER → 2020-12-09 15:21 | Outpatient (CLI) | payer MEDICARE, OTHER, SELFPAY ==
[2020-06-10 08:30] VITALS: BMI 31.1
--- NOTE | 2020-12-09 15:24 | RAD_ITS ---
STUDY: X-RAY - LEFT KNEE REASON FOR EXAM: Female, 70 years old. Worsening pain. TECHNIQUE: 4 view(s) of the knee. COMPARISON: None. FINDINGS: Generalized osteopenia. Normal visualized distal femur. Normal visualized proximal tibia and fibula. Normal proximal tibiofibular articulation. Moderate to severe arthrosis of the medial compartment. Moderate arthrosis of the lateral compartment. Moderate arthrosis of the patellofemoral compartment. Superior patellar spur. Mild chondrocalcinosis. RAD/Knee 4 or More Views IMPRESSION: Osteopenia with tricompartmental arthrosis as described. Chondrocalcinosis. Electronically Signed: Dick King MD at 11:53 EDT , Service support ,
== END ==
PROVIDERS: PCP Family Medicine; Referring Provider Family Medicine; Visit Provider Family Medicine
DX: M25.562 Pain in left knee (principal)
CPT/HCPCS: 73564

== ENCOUNTER → 2020-12-27 16:01 | Outpatient (CLI) | payer MEDICARE, OTHER, SELFPAY ==
[2020-06-10 08:30] VITALS: BMI 31.1
--- NOTE | 2020-12-27 16:15 | MRI_ITS ---
STUDY: MRI LEFT KNEE REASON FOR EXAM: Female, 70 years old. SURGICAL PLANNING, sever OA left knee pain- mostly posterior TECHNIQUE: Standardized fat and water weighted pulse sequences were obtained in all 3 orthogonal planes. COMPARISON: Left knee x-ray dated DECEMBER 09, 2020 FINDINGS: There is diffuse maceration and tearing of the medial meniscus. There is diffuse, full thickness articular cartilage loss of the medial femorotibial compartment. There is moderate osteoarthritic spur formation of the medial knee compartment. Subchondral cystic changes are present on both sides of the articulation. Normal medial collateral ligamentous complex (MCL). Normal distal semimembranosus, gracilis and semitendinosus tendons. Normal lateral meniscus. There is diffuse, greater than 50% thickness articular cartilage loss of the lateral femorotibial compartment. Mild subchondral cystic changes are present lateral femoral condyle. Normal proximal tibiofibular articulation. Normal lateral collateral (fibular) ligament. Normal popliteus tendon. Normal biceps femoris tendon. There is edema with swelling and loss of definition of the of the ACL fascicles, producing a celery stick appearance, with preservation of the continuity of fibers, consistent with mucoid cystic degeneration. Normal posterior cruciate ligament (PCL). Normal congruent patellofemoral articulation. There is diffuse, moderate to full thickness articular cartilage loss of the patellofemoral compartment. Normal medial and lateral patellar retinaculum. Normal quadriceps tendon. Normal patellar tendon. Normal Hoffa''s fat pad. A small joint effusion and moderate size septated degenerated Dow''s cyst are present. MRI/Lower Ext Joint Only (Routine) IMPRESSION: 1. Diffuse maceration and tearing of the medial meniscus and full-thickness loss of cartilage in the medial compartment. Multiple additional degenerative abnormalities as above Electronically Signed: Best Sevilla MD at 23:51 EDT , Service support ,
== END ==
PROVIDERS: PCP Family Medicine; Referring Provider Family Medicine; Visit Provider Family Medicine
DX: M25.562 Pain in left knee (principal)
CPT/HCPCS: 73721

== ENCOUNTER → 2021-06-16 10:18 | Outpatient (CLI) | payer MEDICARE, OTHER, SELFPAY ==
[2020-06-10 08:30] VITALS: BMI 31.1
--- NOTE | 2021-06-16 10:23 | BI_ITS ---
MAMMOGRAPHY - BILATERAL SCREENING REASON FOR EXAM: Female, 71 years old. Routine annual screening examination. PERTINENT HISTORY: Aunt with breast cancer. Remote left ultrasound-guided breast biopsy. TECHNIQUE: Digital bilateral breast federico (3D mammographic acquisition) in the CC and MLO projections. 2-D mediolateral oblique (MLO) and craniocaudad (CC) views of both breasts were obtained. CAD: Full Field Digital Mammography with Computer Added Detection was performed. COMPARISON: Comparison is made with prior study 06/10/2020 and 06/07/2019. FINDINGS: Breast Composition: The breasts are heterogeneously dense, which may obscure small masses. There are no dominant masses or suspicious calcifications. A tissue clip marker is once again seen within a 7 mm nodule in the deep central medial portion of the left breast. Stable small benign appearing bilateral axillary lymph nodes. No other significant abnormalities are identified. There has been no significant change since the prior study. BI/SCRN MAMM (CAD)W/FEDERICO BILAT IMPRESSION: Stable bilateral screening mammogram. Yearly follow-up mammogram recommended. (A) ASSESSMENT CATEGORY: BIRADS Category 2: Benign. A letter regarding these results will be sent to the patient by the facility within 30 days. Approximately 10% of breast cancers are not detected by mammography. A normal mammogram should not delay biopsy of a clinically suspicious abnormality. [id number] Electronically Signed: Chauncey Hernadez MD at 11:02 EDT , Service support ,
== END ==
PROVIDERS: PCP Family Medicine; Referring Provider Obstetrics & Gynecology; Visit Provider Obstetrics & Gynecology
DX: M54.9 Dorsalgia, unspecified (principal); Z12.31 Encounter for screening mammogram for malignant neoplasm of breast
CPT/HCPCS: 77063; 77067; 87086

== ENCOUNTER → 2022-02-09 | Outpatient (CLI) | payer MEDICARE, OTHER, SELFPAY ==
--- NOTE | 2022-02-09 07:07 | CT_ITS ---
STUDY: CT BRAIN AND SINUSES WITH CONTRAST REASON FOR EXAM: Female, 71 years old. PAROSMIA RADIATION DOSAGE (If Supplied By Facility): CTDIvol = ( 33.06 ) mGy, DLP = ( 804.92 ) mGycm TECHNIQUE: Transaxial CT imaging of the brain was performed with administration IV 100mL Isovue-370. Individualized dose optimization techniques were used for this CT. COMPARISON: No relevant priors. FINDINGS: CT BRAIN Normal soft tissue structures. Normal calvarium. Normal size ventricles and extra-axial spaces for the patient''s age. Normal white matter tracts of the cerebral hemispheres. Normal basal ganglia and thalami. Normal brainstem. Normal cerebellum. There is no intracranial hemorrhage. There are no findings of an acute ischemic infarction. CT SINUSES Post Surgical Changes: None. Frontal Sinus and Recess: Mucosal thickening of the frontal sinuses. Ethmoidal Sinuses: Mucosal thickening of the ethmoid sinuses with focal areas of confluence. Maxillary Sinuses: Mucosal thickening of the maxillary sinus bilaterally. Ostiomeatal Complex: Mucosal thickening at the level of the ostiomeatal complexes bilaterally. Sphenoid Sinus: Mucosal thickening of the sphenoid sinus worse on the right side. Sphenoethmoidal Recess: Clear. Nasal Turbinate (Right): Middle Turbinate (Right): Normal. Middle Turbinate (Left): Normal. Inferior Turbinate (Right): Hypertrophy of the right inferior nasal turbinate. Inferior Turbinate (Left): Hypertrophy of the left inferior nasal turbinate. Nasal Septum: Left sided nasal septal deviation but without a nasal septal spur. Nasal Airway: Clear. Cribiform Plate / Anterior Cranial Fossa: Normal. Orbits: Normal. CT/Sinus/Facial Bone WITH Contras IMPRESSION: Pansinusitis. Electronically Signed: Chauncey Hernadez MD at 12:56 EDT ,
== END | disposition home or self-care (01) ==
PROVIDERS: PCP Family Medicine; Referring Provider Otolaryngology Otolaryngology/Facial Plastic Surgery; Visit Provider Otolaryngology Otolaryngology/Facial Plastic Surgery
DX: R43.1 Parosmia (principal)
CPT/HCPCS: 70487; Q9967

== ENCOUNTER → 2022-06-29 | Outpatient (CLI) | payer MEDICARE, OTHER, SELFPAY ==
--- NOTE | 2022-06-29 12:38 | BI_ITS ---
MAMMOGRAPHY - BILATERAL SCREENING REASON FOR EXAM: Female, 72 years old. Routine annual screening examination. PERTINENT HISTORY: Aunt with breast cancer. History of prior left ultrasound-guided breast biopsy. TECHNIQUE: Digital bilateral breast federico (3D mammographic acquisition) in the CC and MLO projections. 2-D mediolateral oblique (MLO) and craniocaudad (CC) views of both breasts were obtained. CAD: Full Field Digital Mammography with Computer Added Detection was performed. COMPARISON: Comparison is made with prior study dated 06/16/2021 and 06/10/2020. FINDINGS: Breast Composition: The breasts are heterogeneously dense, which may obscure small masses. There are no dominant masses or suspicious calcifications. A tissue clip marker is once again seen within a 7 mm nodule in the deep central medial portion of the left breast stable small benign appearing bilateral axillary nodes. No other significant abnormalities are identified. There has been no significant change since the prior study. BI/SCRN MAMM (CAD)W/FEDERICO BILAT IMPRESSION: Stable bilateral screening mammogram. Yearly follow-up mammogram recommended. (A) ASSESSMENT CATEGORY: BIRADS Category 2: Benign. A letter regarding these results will be sent to the patient by the facility within 30 days. Approximately 10% of breast cancers are not detected by mammography. A normal mammogram should not delay biopsy of a clinically suspicious abnormality. [id number] Electronically Signed: Chauncey Hernadez MD at 13:40 EST ,
== END | disposition home or self-care (01) ==
LOC: OPBI 12:37
PROVIDERS: PCP Family Medicine; Visit Provider Nurse Practitioner Women's Health
DX: Z12.31 Encounter for screening mammogram for malignant neoplasm of breast (principal)
CPT/HCPCS: 77063; 77067

== ENCOUNTER → 2022-08-12 | Outpatient (CLI) | payer MEDICARE, OTHER, SELFPAY ==
--- NOTE | 2022-08-12 10:08 | RAD_ITS ---
INDICATION: PAIN TO PELVIS AND LEFT HIP DURING PT EXAMINATION/TECHNIQUE: X-RAY - LEFT XR Hip Unilateral with Pelvis when performed; 2-3 Views 3 VIEWS COMPARISON: 08/03/2018 FINDINGS: SOFT TISSUES: No soft tissue swelling or gas. No radiopaque foreign body. BONES/JOINTS: No acute fracture or subluxation.. Normal alignment. Superior left acetabular osteophyte and over coverage. Mild left femoral acetabular joint space narrowing. No sclerotic or destructive changes observed. 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 Electronically Signed: Geoff Maria MD at 22:20 EST ,
== END | disposition home or self-care (01) ==
LOC: MTRAD 10:00
PROVIDERS: PCP Family Medicine; Referring Provider Family Medicine; Visit Provider Family Medicine
DX: M25.552 Pain in left hip (principal); R10.2 Pelvic and perineal pain
CPT/HCPCS: 73502

== ENCOUNTER → 2023-08-02 | Outpatient (CLI) | payer MEDICARE, OTHER, SELFPAY ==
--- NOTE | 2023-08-02 11:18 | BI_ITS ---
MAMMOGRAPHY - BILATERAL SCREENING REASON FOR EXAM: Female, 73 years old. Routine annual screening examination. PERTINENT HISTORY: Aunt with breast cancer. Remote left ultrasound-guided breast biopsy. TECHNIQUE: Digital bilateral breast federico (3D mammographic acquisition) in the CC and MLO projections. 2-D mediolateral oblique (MLO) and craniocaudad (CC) views of both breasts were obtained. CAD: Full Field Digital Mammography with Computer Added Detection was performed. COMPARISON: Comparison is made with prior study June 29, 2022 and June 16, 2021. FINDINGS: Breast Composition: The breasts are heterogeneously dense, which may obscure small masses. There are no dominant masses or suspicious calcifications. Once again, a tissue clip marker is seen in a 7 mm nodule in the deep central medial portion of the left breast. Stable benign-appearing bilateral axillary lymph nodes. No other significant abnormalities are identified. There has been no significant change since the prior study. BI/SCRN MAMM (CAD)W/FEDERICO BILAT IMPRESSION: Stable bilateral screening mammogram. Yearly follow-up mammogram recommended. (A) ASSESSMENT CATEGORY: BIRADS Category 2: Benign. A letter regarding these results will be sent to the patient by the facility within 30 days. Approximately 10% of breast cancers are not detected by mammography. A normal mammogram should not delay biopsy of a clinically suspicious abnormality. [id number] Electronically Signed: Chauncey Hernadez MD at 12:12 EST ,
== END | disposition home or self-care (01) ==
PROVIDERS: PCP Internal Medicine; Referring Provider Obstetrics & Gynecology; Visit Provider Obstetrics & Gynecology
DX: Z12.31 Encounter for screening mammogram for malignant neoplasm of breast (principal); M54.9 Dorsalgia, unspecified
CPT/HCPCS: 77063; 77067; 87086

== ENCOUNTER → 2024-08-04 | Outpatient (CLI) | payer MEDICARE, OTHER, SELFPAY ==
--- NOTE | 2024-08-04 11:04 | BI_ITS ---
MAMMOGRAPHY - BILATERAL SCREENING REASON FOR EXAM: Female, 74 years old. Routine annual screening examination. PERTINENT HISTORY: Aunt with breast cancer. TECHNIQUE: Digital bilateral breast federico (3D mammographic acquisition) in the CC and MLO projections. 2-D mediolateral oblique (MLO) and craniocaudad (CC) views of both breasts were obtained. CAD: Full Field Digital Mammography with Computer Added Detection was performed. COMPARISON: Comparison is made with prior study dated August 02, 2023 and June 29, 2022. FINDINGS: Breast Composition: The breasts are heterogeneously dense, which may obscure small masses. There are no dominant masses or suspicious calcifications. Once again, a tissue clip marker is seen in a 7 mm nodule in the deep central medial portion of the left breast. Punctate calcification is seen within the nodule. Stable bilateral fat-containing axillary lymph nodes. No other significant abnormalities are identified. There has been no significant change since the prior study. BI/SCRN MAMM (CAD)W/FEDERICO BILAT IMPRESSION: Stable bilateral screening mammogram. Yearly follow-up mammogram recommended. (A) ASSESSMENT CATEGORY: BIRADS Category 2: Benign. A letter regarding these results will be sent to the patient by the facility within 30 days. Approximately 10% of breast cancers are not detected by mammography. A normal mammogram should not delay biopsy of a clinically suspicious abnormality. [id number] Electronically Signed: Chauncey Hernadez MD at 12:50 EST ,
== END | disposition home or self-care (01) ==
LOC: OPBI 11:04
PROVIDERS: PCP Internal Medicine; Referring Provider Obstetrics & Gynecology; Visit Provider Obstetrics & Gynecology
DX: Z12.31 Encounter for screening mammogram for malignant neoplasm of breast (principal)
CPT/HCPCS: 77063; 77067

== ENCOUNTER → 2025-08-06 | Outpatient (CLI) | payer MEDICARE, OTHER, SELFPAY ==
--- NOTE | 2025-08-06 10:15 | BI_ITS ---
EXAM: SCRN MAMM (CAD)W/FEDERICO BILAT DATE: 08/06/2025 CLINICAL HISTORY: F, Age 75 y/o , SCREEN FOR BREAST CANCER TECHNIQUE: Procedure Code: [id number] Modality: MG Procedure: SCRN MAMM (CAD)W/FEDERICO BILAT COMPARISON: Prior exam(s) dated 08/04/2024, 08/02/2023, and 06/29/2022. FINDINGS: TISSUE DENSITY: There are scattered areas of fibroglandular density. Bilateral Breast Mammographic Findings: There is a 6 mm nodular masslike density in the superior, middle 3rd aspect of the right breast which requires additional workup. This is not as well appreciated on the CC view. A stable 7 mm mass is seen in the medial, far posterior aspect of the right breast. Benign round microcalcifications are seen in the right breast. Partially obscured stable isodense masses are seen in the left breast. Benign round calcifications are seen in the left breast. No suspicious masses, suspicious clustered microcalcifications, architectural distortion or secondary sign of malignancy is identified in the left breast. BI/SCRN MAMM (CAD)W/FEDERICO BILAT IMPRESSION: There is a 6 mm nodular masslike density in the superior, middle 3rd aspect of the right breast which requires additional workup. This is not as well appreciated on the CC view. Patient should return for an LM view of the right breast as well as spot compre ssion MLO view of the right breast nodular masslike density. An ultrasound may also be needed. OVERALL FINAL ASSESSMENT BI-RADS 0: INCOMPLETE - NEED ADDITIONAL IMAGING EVALUATION. RECOMMENDATION: Additional Views obtained/call backs Additional Recommendation none A letter with findings and recommendations will be mailed to the patient. Reading Location: [id number]
== END | disposition home or self-care (01) ==
LOC: OPBI 09:59
PROVIDERS: PCP Internal Medicine; Referring Provider Obstetrics & Gynecology; Visit Provider Obstetrics & Gynecology
DX: Z12.31 Encounter for screening mammogram for malignant neoplasm of breast (principal)
CPT/HCPCS: 77063; 77067